=== PATIENT | female | born 1960 | race Caucasian/White ===

== ENCOUNTER → 2017-11-21 13:05 | Outpatient (POV) | payer BC, SELFPAY | PROVIDERS: Family Provider Emergency Medicine; Visit Provider Internal Medicine | DX: Z00.00 Encounter for general adult medical examination without abnormal findings (principal) ==

== ENCOUNTER → 2017-11-22 12:45 | Outpatient (CLI) | payer BC, SELFPAY ==
[2017-11-22 13:13] LABS: Basophils # 0.1 K/mm3 (0-0.2); Basophils % 0.7 % (0.1-2.0); Eosinophils # 0.3 K/mm3 (0.0-0.4); Eosinophils % 3.4 % (0.1-12.0); Hematocrit 39.7 % (37.0-47.0); Hemoglobin 13.1 g/dL (12.2-16.2); Lymphocytes # 3.8 K/mm3 (0.7-4.5); Lymphocytes % 38.5 K/mm3 (10-50); Mean Corpuscular HGB Conc 33.1 g/dL (31.8-35.4); Mean Corpuscular Hemoglobin 29.2 pg (27.0-31.2); Mean Corpuscular Volume 88.2 fl (81-99); Mean Platelet Volume 7.1 fl (7.4-10.4); Monocytes # 0.4 K/mm3 (0.1-1.0); Monocytes % 4.3 % (1.7-9.3); Neutrophils # 5.2 K/mm3 (1.8-7.8); Neutrophils % 53.1 % (37.0-80.0); Platelet Count 304 K/mm3 (142-424); White Blood Count 9.8 K/mm3 (4.8-10.8)
[2017-11-23 07:16] LABS: Immunoglobulin A, Qn 168 mg/dL (87-352); Immunoglobulin G, Qn 850 mg/dL (700-1600)
[2017-11-24 17:15] LABS: Immunoglobulin E, Total 15 IU/mL (0-100); Immunoglobulin M, Qn 100 mg/dL (26-217); Tissue Transglutaminase IgA Ab <2 U/mL (0-3); Tissue Transglutaminase IgG Ab 6 U/mL (0-5)
== END ==
PROVIDERS: PCP Nurse Practitioner Family; Visit Provider Nurse Practitioner Family
DX: R53.83 Other fatigue (principal)
CPT/HCPCS: 36415; 82784; 82785; 85025

== ENCOUNTER 2017-12-26 10:10 | Emergency (ER) | payer BC, SELFPAY ==
[2017-12-26 10:41] VITALS: BP 153/91; PULSE 82; RESP 20; TEMP 36.8; O2SAT 99; BMI 32.9
--- NOTE | 2017-12-26 11:38 | HMH.EDUTC ---
[facility] [place] Clinical Impression: Eustachian tube dysfunction Qualifiers: Laterality: left Qualified Code(s): H69.82 - Other specified disorders of Eustachian tube, left ear Disposition: Home, Self-Care Condition on Discharge: Good Instructions: DI for Eustachian Tube Dysfunction-Adult Additional Instructions: Sleep elevated Continue flonase 2 sprays each nostil daily Continue antihistamine Start steroid since still not improving. We discussed these and you report you have taken them before. Be aware they can elevate your blood pressure and blood sugar as we discussed as well as the other possible side effects. if you notice any of this, stop the medication and see treatment. Prescriptions: predniSONE [Deltasone 10mg tablet] 10 mg PO BID #10 tab Referrals: Mehul Amezcua APRN [Primary Care Provider] - (Immediately for new or worsening symptoms but also if no noticeable improvement over the next 5-7 days. if still not improved, might want to refer you to ENT.) Time of Disposition: 12:35 Medical Decision Making Vital Signs: 12/26/17 10:41 12/26/17 12:44 Temperature 98.2 F 98.7 F Temperature Source Temporal Artery Scan Pulse Rate 97 H Pulse Rate [Right Radial] 82 Respiratory Rate 20 18 Blood Pressure 138/67 Blood Pressure [Right Arm] 153/91 Blood Pressure Mean [Right Arm] 111 02 Sat by Pulse Oximetry 99 Oxygen Delivery Method Room Air - Wai Inquiry Pt receiving controlled substance: No [facility] [place] - General Stated complaint: Head congestion/Ear Ache/Headache Time Seen by Provider: 12/26/17 11:38 Mode of Arrival: Family Vehicle Source of Information: Patient Limitations: No Limitations Description of Symptoms (Recalled from Triage Doc. by RN): pt c/o left ear pain and congestion for 1 month. HEENT Symptoms (Recalled from RN notes): Yes (left ear pain and congestion) Resp Symptoms (Recalled from RN notes): No Skin Symptoms (Recalled from RN notes): No MS Symptoms (Recalled from RN notes): No Functional Status (Recalled from RN notes): na - History of Present Illness Provider Complaint: c/o intermittent left ear pain x 1 month. Saw PCP, Dr. Sanders's office, 2-3 weeks ago. Reports they told her just fluid back in there and prescribed zpack and flonase. No improvement. Taking claritin already daily. Hasn't tried anything else for symptoms. - Related Data Home Medications Medication Instructions Recorded Confirmed aspirin 81 mg tablet,delayed 81 mg PO QDAY 12/04/17 release coenzyme Q10 100 mg capsule 100 mg PO QDAY 12/04/17 docusate sodium 100 mg capsule 100 mg PO BID 12/04/17 ergocalciferol (vitamin D2) 50,000 50,000 unit PO QWEEK 12/04/17 unit capsule gabapentin 600 mg tablet 600 mg PO TID 12/04/17 losartan 100 1 tab PO QDAY 12/04/17 mg-hydrochlorothiazide 25 mg tablet omeprazole 20 mg capsule,delayed 20 mg PO BID 12/04/17 release simvastatin 40 mg tablet 40 mg PO QAM 12/04/17 tizanidine 4 mg capsule 4 mg PO QHS cap 12/04/17 zolpidem 10 mg tablet 10 mg PO HS PRN 12/04/17 Previous Rx's Medication Instructions Recorded allopurinol 100 mg tablet 100 mg PO QDAY #30 tab 12/05/17 bupropion HCl XL 150 mg 24 hr 150 mg PO QAM #30 tab 12/05/17 tablet, extended release diazepam 2 mg tablet See Label Instructions PO BID #60 12/05/17 tab diazepam 2 mg tablet See Label Instructions PO TID PRN 12/05/17 #90 tab fluticasone 50 mcg/actuation nasal 1 spray INTRANASAL QDAY #9.9 g 12/05/17 spray,suspension predniSONE [Deltasone 10mg tablet] 10 mg PO BID #10 tab 12/26/17 Allergies Allergy/AdvReac Type Severity Reaction Status Date / Time promethazine [From PHENERGAN] Allergy Intermediate Verified 12/05/17 14:18 - Worker's Comp Is this a Worker's Comp case?: No [facility] History I have reviewed the patient's past medical history: Yes Medical History: Reports:: Anxiety, Gastroesophageal Reflux Disease(GERD), Hyperlipidemia, Hypertension Denies:: Diabete
[2017-12-26 12:44] VITALS: BP 138/67; PULSE 97; RESP 18; TEMP 37.1; O2SAT 100
== END 2017-12-26 12:45 | disposition home or self-care (01) ==
PROVIDERS: Emergency Provider Nurse Practitioner Family; Family Provider Emergency Medicine; PCP Nurse Practitioner Family
DX: H69.82 Other specified disorders of Eustachian tube, left ear (principal); K21.9 Gastro-esophageal reflux disease without esophagitis; E78.5 Hyperlipidemia, unspecified; I10 Essential (primary) hypertension; F41.9 Anxiety disorder, unspecified; M79.7 Fibromyalgia; Z88.8 Allergy status to other drugs, medicaments and biological substances; Z79.82 Long term (current) use of aspirin; Z79.899 Other long term (current) drug therapy
CPT/HCPCS: 99202

== ENCOUNTER → 2018-01-30 09:49 | Outpatient (POV) | payer BC, SELFPAY ==
[2018-01-30 18:10] LABS: Basophils % 0.6 % (0.1-2.0); Eosinophils # 0.3 K/mm3 (0.0-0.4); Eosinophils % 3.2 % (0.1-12.0); Hematocrit 39.5 % (37.0-47.0); Hemoglobin 12.6 g/dL (12.2-16.2); Lymphocytes % 38.5 K/mm3 (10-50); Mean Corpuscular HGB Conc 31.9 g/dL (31.8-35.4); Mean Corpuscular Hemoglobin 29.7 pg (27.0-31.2); Mean Corpuscular Volume 93.1 fl (81-99); Mean Platelet Volume 8.5 fl (7.4-10.4); Monocytes # 0.4 K/mm3 (0.1-1.0); Monocytes % 5.2 % (1.7-9.3); Neutrophils # 4.1 K/mm3 (1.8-7.8); Neutrophils % 52.5 % (37.0-80.0); Platelet Count 298 K/mm3 (142-424); Red Blood Count 4.25 M/mm3 (4.20-5.40); Red Cell Distribution Width 13.1 % (11.5-17.5); White Blood Count 7.8 K/mm3 (4.8-10.8)
[2018-01-30 19:23] LABS: Alanine Aminotransferase 44 U/L (12-78); Albumin/Globulin Ratio 1.3 (1.1-1.8); Alkaline Phosphatase 94 U/L (46-116); Anion Gap 3.7 mEq/L (5-15); Aspartate Amino Transferase 17 U/L (15-37); Bilirubin,Total 0.3 mg/dL (0.2-1.0); Blood Urea Nitrogen 14 mg/dL (7-18); Calcium 9.3 mg/dL (8.5-10.1); Carbon Dioxide 29 mmol/L (21.0-32.0); Chloride 106 mmol/L (98-107); Estimated Glomerular Filt Rate 104 ml/min (>60); Free T4 (Free Thyroxine) 0.79 ng/dl (0.76-1.46); GFR (African American) 126 ML/MIN (>60); Globulin 3.2 gm/dl (1.3-3.2); Glucose 83 mg/dL (74-106); Potassium 3.7 mmoL/L (3.5-5.1); Sodium 135 mmol/L (136-145); Total Protein,Serum 7.2 gm/dL (6.4-8.2)
== END ==
PROVIDERS: Family Provider Emergency Medicine; PCP Nurse Practitioner Family; Visit Provider Otolaryngology
DX: H92.09 Otalgia, unspecified ear (principal); R53.83 Other fatigue; R09.89 Other specified symptoms and signs involving the circulatory and respiratory systems; R51 Headache
CPT/HCPCS: 80053; 84439; 84443; 85025

== ENCOUNTER → 2018-03-13 11:37 | Outpatient (POV) | payer BC, SELFPAY | PROVIDERS: Family Provider Emergency Medicine; PCP Nurse Practitioner Family; Visit Provider Otolaryngology | DX: Z00.00 Encounter for general adult medical examination without abnormal findings (principal) ==

== ENCOUNTER → 2018-03-13 11:37 | Outpatient (POV) | payer BC, SELFPAY | PROVIDERS: Family Provider Emergency Medicine; PCP Nurse Practitioner Family; Visit Provider Internal Medicine | DX: Z00.00 Encounter for general adult medical examination without abnormal findings (principal) ==

== ENCOUNTER → 2018-04-17 12:59 | Outpatient (CLI) | payer BC, SELFPAY ==
--- NOTE | 2018-04-17 13:04 | MR_ITS ---
MR head/brain wo/w con HISTORY: Left hip pain, left side headache ITS.REASON: NEUROPATHIC PAIN, LEFT EAR PAIN ORDERING PHYSICIAN: Rachael Mcgarry MD PATIENT AGE: 57 years Comparison: None TECHNIQUE: Standard multiplanar multiecho sequences are performed without and with gadolinium enhancement. FINDINGS: No midline shift, mass effect, intracranial hemorrhage, or hydrocephalus is evident. No evidence of acute infarction. No enhancing lesions. The cerebellopontine angles, cerebellum, and brainstem are unremarkable. There are a few small white matter hyperintensities noted. These do not enhance and do not show restricted diffusion and may represent small ischemic gliotic foci. They may also occur with migraine headache. Demyelinating process is felt to be less likely based on imaging characteristics. The hippocampal gyri are unremarkable and the temporal horns are symmetric. There is a partially empty sella.. The optic chiasm and corpus callosum are unremarkable. No cerebellar ectopia. No mastoid effusion or sinus air-fluid level. IMPRESSION: 1. No acute intracranial findings. 2. Scant scattered T2 white matter hyperintensities nonspecific but may be seen with ischemic gliotic change from microvascular disease or migraine headache or less likely demyelinating process.
[2018-04-17 13:21] LABS: Blood Urea Nitrogen 14 mg/dL (7-18); Creatinine,Serum 0.88 mg/dL (0.55-1.02); Estimated Glomerular Filt Rate 67 ml/min (>60); GFR (African American) 81 ML/MIN (>60)
--- NOTE | 2018-04-17 14:12 | HMH.ITSHM ---
ALLOPURINOL 100MG ASPIRIN BUPROPION CIPROFLOXACIN COENZYME DIAZEPAM DOCUSATE SODIUM ERGOCALCIFEROL FLUTICASONE GABAPENTIN METRONIDAZOLE OMEPRAZOLE TIZANIDINE ZOLPIDEM
== END ==
PROVIDERS: Family Provider Emergency Medicine; PCP Nurse Practitioner Family; Visit Provider Otolaryngology
DX: M79.2 Neuralgia and neuritis, unspecified (principal); M26.609 Unspecified temporomandibular joint disorder, unspecified side; H92.02 Otalgia, left ear
CPT/HCPCS: 36415; 70553; 82565; 84520; A9576

== ENCOUNTER → 2018-04-19 14:45 | Outpatient (REF) | payer BC, SELFPAY ==
[2018-04-19 17:39] LABS: Potassium 4.6 mmoL/L (3.5-5.1)
== END ==
LOC: LAB 14:45
PROVIDERS: Visit Provider Nurse Practitioner Family
DX: E87.6 Hypokalemia (principal)
CPT/HCPCS: 84132

== ENCOUNTER → 2018-05-03 16:04 | Outpatient (REF) | payer BC, SELFPAY | LOC: LAB 16:04 | PROVIDERS: Visit Provider Nurse Practitioner Family | DX: M54.9 Dorsalgia, unspecified (principal) | CPT/HCPCS: 87086; 87088; 87186 ==

== ENCOUNTER 2018-05-11 10:32 | Outpatient (CLI) | payer BC, SELFPAY ==
--- NOTE | 2018-05-11 11:50 | HMH.PHACONS ---
- Pharmacy Consult Date: 05/11/18 Time: 11:51 Referring provider: GERALD PICKARD Reason for Consult:: VANCOMYCIN DOSING Allergies and ADEs:: Allergies Allergy/AdvReac Type Severity Reaction Status Date / Time promethazine [From PHENERGAN] Allergy Intermediate Verified 05/03/18 14:14 Home Medications:: Home Medications Medication Instructions Recorded Confirmed Type aspirin 81 mg tablet,delayed 81 mg PO QDAY 12/04/17 History release docusate sodium 100 mg capsule 100 mg PO BID 12/04/17 History losartan 100 1 tab PO QDAY 12/04/17 History mg-hydrochlorothiazide 25 mg tablet omeprazole 20 mg capsule,delayed 20 mg PO BID 12/04/17 History release simvastatin 40 mg tablet 40 mg PO QAM 12/04/17 History Height: 1.57 m Weight: 83 kg Laboratory Results:: N/A Medical History: Reports:: Anxiety, Gastroesophageal Reflux Disease(GERD), Hyperlipidemia, Hypertension Denies:: Diabetes Mellitus Type 1, Diabetes Mellitus Type 2 Assessment and Plan - Assessment and plan all Dx Assessment and Plan for all problems:: BASED ON PATIENT FACTORS, RECOMMEND VANCOMYCIN 1,750MG IV Q24H. WILL OBTAIN TROUGH LEVEL PRIOR TO DOSE ON 05/14/18. PHARMACY WILL CONTINUE TO MONITOR AND WILL ADJUST DOSE APPROPRIATE. -PIERRE RENTERIA, KINGD
[2018-05-11 12:00] VITALS: BP 128/78; PULSE 68; RESP 20; TEMP 36.9; O2SAT 96
[2018-05-11 12:30] VITALS: BP 118/70; PULSE 66; RESP 20; TEMP 36.4; O2SAT 96
[2018-05-11 13:00] VITALS: BP 125/70; PULSE 68; RESP 20; TEMP 36.7; O2SAT 96
[2018-05-11 13:46] VITALS: BMI 33.6
--- NOTE | 2018-05-11 13:47 | XR_ITS ---
XR chest portable PICC plac HISTORY: ITS.REASON: PICC line placement ORDERING PHYSICIAN: Carlos Alberto Sanders MD PATIENT AGE: 57 years FINDINGS: Left upper from a PICC line has been inserted. The tip is in good position within the superior vena cava. Unremarkable cardiovascular structures with clear lungs. IMPRESSION: Good placement of PICC line
[2018-05-11 14:00] VITALS: BP 126/70; PULSE 68; RESP 20; TEMP 37.1; O2SAT 96
[2018-05-11 15:00] VITALS: BP 126/70; PULSE 68; RESP 20; TEMP 36.9; O2SAT 96
== END 2018-05-11 15:10 | disposition home or self-care (01) ==
LOC: INF 10:34
PROVIDERS: PCP Emergency Medicine; Visit Provider Emergency Medicine
DX: N39.0 Urinary tract infection, site not specified (principal); M54.5 Low back pain
CPT/HCPCS: 36569; 71045; 96365; 96366; C1751; J3370

== ENCOUNTER 2018-05-12 13:57 | Outpatient (CLI) | payer BC, SELFPAY ==
[2018-05-12 14:35] VITALS: BP 153/77; PULSE 93; RESP 20; TEMP 36.4; O2SAT 97
[2018-05-12 15:05] VITALS: BP 144/81; PULSE 77; RESP 18; TEMP 36.6; O2SAT 96
[2018-05-12 15:35] VITALS: BP 139/66; PULSE 86; RESP 18; TEMP 36.5; O2SAT 97
[2018-05-12 16:39] VITALS: BP 129/81; PULSE 78; RESP 18; TEMP 36.6; O2SAT 99
== END 2018-05-12 16:40 | disposition home or self-care (01) ==
LOC: INF 13:58
PROVIDERS: Family Provider Emergency Medicine; PCP Emergency Medicine; Visit Provider Emergency Medicine
DX: N39.0 Urinary tract infection, site not specified (principal); M54.5 Low back pain
CPT/HCPCS: 96365; 96366; J3370

== ENCOUNTER → 2018-05-13 14:21 | Outpatient (CLI) | payer BC, SELFPAY ==
[2018-05-13 14:21] VITALS: BP 131/91; PULSE 85; RESP 18; TEMP 36.8; O2SAT 97
[2018-05-13 14:40] VITALS: BP 138/59; PULSE 83; RESP 18; TEMP 36.4; O2SAT 98
== END ==
PROVIDERS: Family Provider Emergency Medicine; PCP Emergency Medicine; Visit Provider Emergency Medicine
DX: N39.0 Urinary tract infection, site not specified (principal); M54.5 Low back pain
CPT/HCPCS: 96365; 96366; J3370

== ENCOUNTER 2018-05-14 14:19 | Outpatient (CLI) | payer BC, SELFPAY ==
[2018-05-14 14:21] VITALS: BMI 33.6
[2018-05-14 14:46] LABS: Anion Gap 12.1 mEq/L (5-15); Blood Urea Nitrogen 13 mg/dL (7-18); Carbon Dioxide 28 mmol/L (21.0-32.0); Chloride 104 mmol/L (98-107); Creatinine Clearance Estimated 129 mL/min (0-300); Creatinine,Serum 0.65 mg/dL (0.55-1.02); Estimated Glomerular Filt Rate 95 ml/min (>60); GFR (African American) 115 ML/MIN (>60); Glucose 104 mg/dL (74-106); Potassium 3.1 mmoL/L (3.5-5.1); Sodium 141 mmol/L (136-145)
[2018-05-14 14:47] LABS: Vancomycin,Trough 4.6 mcg/ml (10.0-20.0)
--- NOTE | 2018-05-14 15:12 | HMH.PHACONS ---
- Pharmacy Consult Date: 05/14/18 Time: 15:13 Referring provider: GERALD PICKARD Reason for Consult:: VANCOMYCIN DOSING Allergies and ADEs:: Allergies Allergy/AdvReac Type Severity Reaction Status Date / Time promethazine [From PHENERGAN] Allergy Intermediate Verified 05/03/18 14:14 Home Medications:: Home Medications Medication Instructions Recorded Confirmed Type aspirin 81 mg tablet,delayed 81 mg PO QDAY 12/04/17 05/14/18 History release docusate sodium 100 mg capsule 100 mg PO BID 12/04/17 05/14/18 History omeprazole 20 mg capsule,delayed 20 mg PO BID 12/04/17 05/14/18 History release simvastatin 40 mg tablet 40 mg PO QAM 12/04/17 05/14/18 History Allopurinol [Allopurinol 100mg 100 mg PO QDAY 05/14/18 05/14/18 History tablet] Ciprofloxacin HCl [Cipro 500mg Tab] 500 mg PO BID 05/14/18 05/14/18 History Losartan/Hydrochlorothiazide 1 tab PO QDAY 05/14/18 05/14/18 History [Hyzaar 100-25 Tablet] Phenazopyridine HCl [Pyridium 200 pow PO TID 05/14/18 05/14/18 History 200mg Tablet] Potassium Chloride [K-Tab ER 20 20 meq PO DAILY 05/14/18 05/14/18 History mEq] buPROPion HCl [Bupropion Xl] 150 mg PO QAM 05/14/18 05/14/18 History diazePAM [Valium] See Label Instructions PO BID 05/14/18 History metroNIDAZOLE [Flagyl] 500 mg PO TID 05/14/18 05/14/18 History Height: 1.57 m Weight: 83.461 kg Laboratory Results:: Laboratory Results - last 24 hr 05/14/18 14:20: Sodium 141, Potassium 3.1 L, Chloride 104, Carbon Dioxide 28, Anion Gap 12.1, BUN 13, Creatinine 0.65, Estimated Creat Clear 129, Estimated GFR 95, Est GFR ( Amer) 115, Glucose 104, Calcium 9.0, Vancomycin Trough 4.6 L Medical History: Reports:: Anxiety, Gastroesophageal Reflux Disease(GERD), Hyperlipidemia, Hypertension Denies:: Diabetes Mellitus Type 1, Diabetes Mellitus Type 2 Assessment and Plan - Assessment and plan all Dx Assessment and Plan for all problems:: BASED ON PATIENT FACTORS AND VANCOMYCIN TROUGH LEVEL OF 4.6, RECOMMEND CHANGING CURRENT DOSE TO 1,500MG IV Q12H. WILL OBTAIN TROUGH LEVEL PRIOR TO AM DOSE ON 05/16/18. PHARMACY WILL CONTINUE TO MONITOR AND WILL ADJUST DOSE APPROPRIATE AT THAT TIME. -PIERRE RENTERIA, KINGD
[2018-05-14 15:20] VITALS: BP 120/62; PULSE 87; RESP 18; O2SAT 96
[2018-05-14 15:50] VITALS: BP 119/67; PULSE 85; RESP 18; O2SAT 97
[2018-05-14 16:20] VITALS: BP 124/61; PULSE 87; RESP 18; O2SAT 96
[2018-05-14 16:50] VITALS: BP 118/60; PULSE 84; RESP 18; O2SAT 97
== END 2018-05-14 17:25 | disposition home or self-care (01) ==
LOC: INF 14:19
PROVIDERS: Family Provider Emergency Medicine; PCP Emergency Medicine; Visit Provider Emergency Medicine
DX: N39.0 Urinary tract infection, site not specified (principal); M54.5 Low back pain
CPT/HCPCS: 80048; 80202; 96365; 96366; J3370

== ENCOUNTER 2018-05-15 14:34 | Outpatient (CLI) | payer BC, SELFPAY ==
[2018-05-15 14:46] VITALS: BP 153/83; PULSE 76; RESP 18; TEMP 36.6; O2SAT 97
[2018-05-15 15:00] VITALS: BP 124/76; PULSE 76; RESP 18; TEMP 36.6; O2SAT 97
[2018-05-15 15:20] VITALS: BP 129/72; PULSE 71; RESP 16; TEMP 36.6; O2SAT 98
[2018-05-15 15:50] VITALS: BP 131/78; PULSE 75; RESP 18; TEMP 36.6; O2SAT 97
[2018-05-15 16:00] VITALS: BP 128/79; PULSE 79; RESP 18
[2018-05-15 16:39] VITALS: BMI 33.6
[2018-05-15 17:05] VITALS: BP 126/74; PULSE 71; RESP 18; TEMP 36.6; O2SAT 98
--- NOTE | 2018-05-15 17:31 | PC.NURSE ---
05/15/18 1700 Gentamycin peak drawn per order of Matt, Pharm D
[2018-05-15 17:37] LABS: Gentamicin,Peak 13.4 ug/mL (4.0-8.0)
== END 2018-05-15 17:05 | disposition home or self-care (01) ==
LOC: INF 14:34
PROVIDERS: Family Provider Emergency Medicine; PCP Emergency Medicine; Visit Provider Emergency Medicine
DX: N39.0 Urinary tract infection, site not specified (principal); M54.5 Low back pain
CPT/HCPCS: 80170; 96365

== ENCOUNTER → 2018-05-16 14:06 | Outpatient (CLI) | payer BC, SELFPAY ==
[2018-05-16 14:06] VITALS: BP 127/71; PULSE 72; RESP 18; TEMP 36.9; O2SAT 99
[2018-05-16 14:41] LABS: Anion Gap 12.5 mEq/L (5-15); Blood Urea Nitrogen 11 mg/dL (7-18); Calcium 9.5 mg/dL (8.5-10.1); Carbon Dioxide 28 mmol/L (21.0-32.0); Chloride 105 mmol/L (98-107); Creatinine,Serum 0.61 mg/dL (0.55-1.02); Estimated Glomerular Filt Rate 102 ml/min (>60); GFR (African American) 123 ML/MIN (>60); Glucose 103 mg/dL (74-106); Potassium 3.5 mmoL/L (3.5-5.1); Sodium 142 mmol/L (136-145)
[2018-05-16 14:46] VITALS: BP 126/88; BP 127/71; PULSE 72; PULSE 73; RESP 18; TEMP 36.8; TEMP 36.9; O2SAT 98; O2SAT 99; BMI 33.6
== END ==
PROVIDERS: Family Provider Emergency Medicine; PCP Emergency Medicine; Visit Provider Emergency Medicine
DX: N39.0 Urinary tract infection, site not specified (principal); M54.5 Low back pain
CPT/HCPCS: 80048; 80170; 96365

== ENCOUNTER 2018-05-17 14:30 | Outpatient (CLI) | payer BC, SELFPAY ==
--- NOTE | 2018-05-17 08:19 | HMH.PHACONS ---
- Pharmacy Consult Date: 05/17/18 Time: 08:19 Referring provider: GERALD PICKARD Reason for Consult:: GENTAMICIN LEVELS Allergies and ADEs:: Allergies Allergy/AdvReac Type Severity Reaction Status Date / Time promethazine [From PHENERGAN] Allergy Intermediate Verified 05/03/18 14:14 Home Medications:: Home Medications Medication Instructions Recorded Confirmed Type aspirin 81 mg tablet,delayed 81 mg PO QDAY 12/04/17 05/15/18 History release docusate sodium 100 mg capsule 100 mg PO BID 12/04/17 05/15/18 History omeprazole 20 mg capsule,delayed 20 mg PO BID 12/04/17 05/15/18 History release simvastatin 40 mg tablet 40 mg PO QAM 12/04/17 05/15/18 History Allopurinol [Allopurinol 100mg 100 mg PO QDAY 05/14/18 05/15/18 History tablet] Phenazopyridine HCl [Pyridium 200 pow PO TID 05/14/18 05/15/18 History 200mg Tablet] Potassium Chloride [K-Tab ER 20 20 meq PO DAILY 05/14/18 05/15/18 History mEq] buPROPion HCl [Bupropion Xl] 150 mg PO QAM 05/14/18 05/15/18 History diazePAM [Valium] See Label Instructions PO BID 05/14/18 05/15/18 History levoFLOXacin [Levaquin 500mg 500 mg PO Q24H 05/15/18 05/15/18 History tab] Height: 0 cm Weight: 0 g Laboratory Results:: SRCR= 0.61 Medical History: Reports:: Anxiety, Gastroesophageal Reflux Disease(GERD), Hyperlipidemia, Hypertension Denies:: Diabetes Mellitus Type 1, Diabetes Mellitus Type 2 Assessment and Plan - Assessment and plan all Dx Assessment and Plan for all problems:: GENTAMICIN TROUGH LEVEL: 0.00 GENTAMICIN PEAK LEVEL: 13.4 BASED ON GENTAMICIN LEVELS AND PATIENT FACTORS, RECOMMEND CONTINUING GENTAMICIN 360 MG IV Q24H. PHARMACY WILL CONTINUE TO MONITOR DAILY AND ADJUST APPROPRIATE.
[2018-05-17 15:00] VITALS: BP 139/88; PULSE 76; RESP 18; TEMP 36.6
[2018-05-17 15:30] VITALS: BP 132/88; PULSE 74; RESP 18; O2SAT 94
[2018-05-17 16:00] VITALS: BP 145/85; PULSE 78; RESP 18
== END 2018-05-17 16:25 | disposition home or self-care (01) ==
LOC: INF 14:32
PROVIDERS: Family Provider Emergency Medicine; PCP Emergency Medicine; Visit Provider Emergency Medicine
DX: N39.0 Urinary tract infection, site not specified (principal); M54.5 Low back pain
CPT/HCPCS: 96366

== ENCOUNTER 2018-05-18 14:08 | Outpatient (CLI) | payer BC, SELFPAY ==
[2018-05-18 14:15] VITALS: BP 109/66; PULSE 75; RESP 18; TEMP 36.5; O2SAT 96
[2018-05-18 14:45] VITALS: BP 109/61; PULSE 73; RESP 18
[2018-05-18 15:15] VITALS: BP 116/57; PULSE 73; RESP 18
[2018-05-18 15:30] VITALS: BP 109/66; PULSE 75; RESP 18
== END 2018-05-18 15:30 | disposition home or self-care (01) ==
LOC: INF 14:08
PROVIDERS: Family Provider Emergency Medicine; PCP Emergency Medicine; Visit Provider Emergency Medicine
DX: N39.0 Urinary tract infection, site not specified (principal); M54.5 Low back pain
CPT/HCPCS: 96365

== ENCOUNTER → 2018-05-19 13:46 | Outpatient (CLI) | payer BC, SELFPAY ==
[2018-05-19 14:01] VITALS: BMI 33.6
[2018-05-19 14:07] LABS: Appearance,Urine SL CLOUDY (Clear); Bilirubin,Urine Negative (Negative); Blood, Urine 1+ (Negative); Color,Urine YELLOW (Yellow); Glucose,Urine (UA) Negative (Negative); Ketones,Urine Negative (Negative); Leukocyte Esterase,Urine Negative (Negative); Microscopic, Urine URINE MICROSCOPIC (MICROSCOPIC); Nitrate,Urine Negative (Negative); Protein,Urine Negative (Negative); Specific Gravity, Urine 1.015 (1.005-1.030); Urobilinogen,Urine 0.2 EU/dl (0.2)
[2018-05-19 14:14] LABS: Bacteria,Urine 1+ /lpf; WBC,Urine Occasional #/hpf (0-3)
[2018-05-19 14:15] VITALS: BP 134/83; PULSE 72; RESP 18; TEMP 36.2; O2SAT 96
[2018-05-19 15:20] VITALS: BP 143/80; PULSE 76; RESP 18; TEMP 36.6; O2SAT 100
[2018-05-19 16:11] VITALS: BP 138/78; PULSE 75; RESP 18; TEMP 36.7; O2SAT 98
== END ==
PROVIDERS: Visit Provider Emergency Medicine
DX: N39.0 Urinary tract infection, site not specified (principal); M54.5 Low back pain
CPT/HCPCS: 81001; 87086; 96365

== ENCOUNTER → 2018-06-22 11:10 | Outpatient (CLI) | payer BC, SELFPAY ==
--- NOTE | 2018-06-22 11:11 | CT_ITS ---
CT mastoid W/O INDICATION: ITS.REASON: headache, dizziness, eustachian tube dysfunction ORDERING PHYSICIAN: Agnes Lindquist MD PATIENT AGE: 57 years COMPARISON: None TECHNIQUE: Axial images are obtained without contrast. Sagittal and coronal reformatted images are reviewed as well. All CT scans at the facility use one or more dose reduction, viz: automated exposure control, ma/kV adjustment per patient size (including targeted exams where dose is matched to indication, i.e. head), or iterative reconstruction technique. FINDINGS: Thin section axial images are obtained with sagittal and coronal reformatted images without contrast. The mastoid sinuses are well aerated. No mastoid effusion or mass. No evidence of cholesteatoma. The middle ear canals are also well aerated. The acoustic foramen are symmetric. Unremarkable petrous bone. No temporal bone mass evident. No fracture or destructive process. No sinus air-fluid level. The orbits have an unremarkable appearance. There is minimal degenerative change of left TMJ. IMPRESSION: 1. Unremarkable CT scan of the mastoids as detailed above. 2. 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
== END ==
PROVIDERS: Family Provider Emergency Medicine; PCP Emergency Medicine; Visit Provider Specialist
DX: R51 Headache (principal); R42 Dizziness and giddiness; H69.90 Unspecified Eustachian tube disorder, unspecified ear
CPT/HCPCS: 70486

== ENCOUNTER → 2018-06-25 11:33 | Outpatient (POV) | payer BC, SELFPAY | PROVIDERS: Family Provider Emergency Medicine; PCP Emergency Medicine; Visit Provider Nurse Practitioner Acute Care | DX: Z00.00 Encounter for general adult medical examination without abnormal findings (principal) ==

== ENCOUNTER → 2018-12-04 13:38 | Outpatient (CLI) | payer BC, SELFPAY ==
[2018-12-04 14:50] LABS: Erythrocyte Sedimentation Rate 18 mm/hr (0-30)
== END ==
PROVIDERS: Visit Provider Emergency Medicine
DX: R53.83 Other fatigue (principal)
CPT/HCPCS: 85651

== ENCOUNTER → 2019-03-01 17:30 | Outpatient (CLI) | payer BC, SELFPAY ==
[2019-03-01 21:07] LABS: Amphetamine/Metha Screen,Urine Negative ng/mL (<1000); Barbiturates Screen,Urine Negative ng/mL (<200); Benzodiazepines Screen,Urine Positive ng/mL (<200); Cannabinoid Screen,Urine Negative ng/mL (<50); Cocaine Screen,Urine Negative ng/mL (<300); Methadone Screen,Urine Negative ng/mL (<300); Opiate Screen,Urine Negative ng/mL (<300); Phencyclidine Screen,Urine Negative ng/mL (<25)
== END ==
PROVIDERS: Visit Provider Emergency Medicine
DX: R30.0 Dysuria (principal); Z79.899 Other long term (current) drug therapy
CPT/HCPCS: 80305; 87086

== ENCOUNTER → 2019-05-13 10:10 | Outpatient (POV) | payer BC, SELFPAY | PROVIDERS: PCP Emergency Medicine; Visit Provider Nurse Practitioner Family | DX: Z00.00 Encounter for general adult medical examination without abnormal findings (principal) ==

== ENCOUNTER → 2019-06-26 14:23 | Outpatient (CLI) | payer BC, SELFPAY ==
[2019-06-26 18:05] LABS: Free T4 (Free Thyroxine) 0.93 ng/dl (0.76-1.46); Thyroid Stimulating Hormone 3.58 uIU/ml (0.358-3.740)
== END ==
PROVIDERS: Visit Provider Emergency Medicine
DX: R63.5 Abnormal weight gain (principal)
CPT/HCPCS: 36415; 84439; 84443

== ENCOUNTER 2020-05-23 13:05 | Emergency (ER) | payer BC, SELFPAY ==
[2020-05-23 13:23] VITALS: BP 140/94; PULSE 108; RESP 19; TEMP 36.9; O2SAT 98; BMI 34.7
--- NOTE | 2020-05-23 13:33 | HMH.EDUTC ---
[facility] – [place] Disposition Clinical Impression: URI (upper respiratory infection) Qualifiers: URI type: unspecified URI Qualified Code(s): J06.9 - Acute upper respiratory infection, unspecified Disposition: Home, Self-Care Condition on Discharge: Good Instructions: Sore Throat, Sinusitis, DI for Sinusitis, DI for Ear Pain-Adult Additional Instructions: *Monitor Temp, Over the counter Motrin or Tylenol as directed/as needed Tylenol every 4 hours and Motrin every 6 hours (as long as your family doctor has told you that you can take it) for fever or pain. and straight to ER if unable to lower temp less than 101.0 after medication given *Warm salt water gargles may help to soothe the throat *Throat Lozenges *Warm fluids like tea with honey may help to soothe the throat *Sleep elevated *Humidifier/Vaporizer *Flonase 2 sprays in each nostril daily but be aware that it may take 2-3 days before you notice improvement Follow up IMMEDIATELY for new or worsening symptoms or no Noticeable improvement over the next 48-72 hours. 911 for difficulty breathing or swallowing Referrals: Leonard Heredia MD [Primary Care Provider] - As needed Time of Disposition: 13:40 Medical Decision Making - Wai Inquiry Pt receiving controlled substance: No Wai was queried for this patient: No Vital Signs: 05/23/20 13:23 Temperature 98.4 F Temperature Source Oral Pulse Rate [Right Brachial] 108 H Respiratory Rate 19 Blood Pressure [Right Arm] 140/94 H Blood Pressure Mean [Right Arm] 109 Blood Pressure Source [Right Arm] Automatic Cuff Blood Pressure Position [Right Arm] Sitting 02 Sat by Pulse Oximetry 98 Oxygen Delivery Method Room Air Orders (Tests/Meds): ED MEDICATIONS Discontinued Medications Generic Name Dose Route Start Last Admin Trade Name Freq PRN Reason Stop Dose Admin Ceftriaxone Sodium 1 gm 05/23/20 13:36 05/23/20 13:55 Rocephin 1gm Vial IM 05/23/20 13:37 1 gm ONCE ONE Administration Protocol Lidocaine HCl 0 ml 05/23/20 13:36 05/23/20 13:55 Lidocaine 1% 10ml Mdv IM 05/23/20 13:37 2.1 ml ONCE ONE Administration Methylprednisolone Sodium Succinate 125 mg 05/23/20 13:36 05/23/20 13:55 Solu-Medrol 125mg/2ml Vial IM 05/23/20 13:37 125 mg ONCE ONE Administration [facility] [place] HPI - General Stated complaint: SINUS EAR PAIN Time Seen by Provider: 05/23/20 13:33 Mode of Arrival: Ambulatory Source of Information: Patient Limitations: No Limitations Description of Symptoms (Recalled from Triage Doc. by RN): PATIENT C/O LEFT EAR ACHE AND SINUS CONGESTION X 1 WEEK HEENT Symptoms (Recalled from RN notes): Yes Resp Symptoms (Recalled from RN notes): No Skin Symptoms (Recalled from RN notes): No MS Symptoms (Recalled from RN notes): No Functional Status (Recalled from RN notes): wnl - History of Present Illness Provider Complaint: Patient states that she has been having pressure like feeling in her ears and drainage and pressure that is starting in her sinuses States that if she gets in to get checked and injections it helps to keep it from getting worse States that it started out like allergies and she feels like it is starting to turn into infection and having drainage in the back of her throat Denies known exposure to COVID - Related Data Home Medications Medication Instructions Recorded Confirmed buspirone 10 mg tablet 5 mg PO #60 tab 05/06/19 05/06/19 Previous Rx's Medication Instructions Recorded zolpidem 10 mg tablet 10 mg PO QHS PRN #30 tab 06/14/19 hydroxyzine HCl 25 mg tablet 25 mg PO QHS 90 Days #90 tab 06/26/19 docusate sodium 100 mg capsule 100 mg PO BID #180 cap 07/08/19 potassium chloride 20 mEq See Rx Instructions .ROUTE 07/08/19 tablet,extended release(part/cryst) .COMPLEX #30 tablet losartan 100 See Rx Instructions .ROUTE 08/14/19 mg-hydrochlorothiazide 25 mg tablet .COMPLEX #90 tablet aspirin 81 mg tablet,delayed 81 mg PO QDAY #90 tab 08/26/19 release Keto
[2020-05-23 14:01] VITALS: BP 140/94; PULSE 108; RESP 19; TEMP 36.9; O2SAT 98
== END 2020-05-23 14:04 | disposition home or self-care (01) ==
PROVIDERS: Emergency Provider Nurse Practitioner; PCP Family Medicine
DX: J06.9 Acute upper respiratory infection, unspecified (principal); F41.8 Other specified anxiety disorders; K21.9 Gastro-esophageal reflux disease without esophagitis; I10 Essential (primary) hypertension; E78.5 Hyperlipidemia, unspecified; Z90.49 Acquired absence of other specified parts of digestive tract; Z79.899 Other long term (current) drug therapy
CPT/HCPCS: 96372; 99201

== ENCOUNTER 2020-07-22 20:47 | Emergency (ER) | payer BC, SELFPAY ==
[2020-07-22 20:52] VITALS: BP 138/73; PULSE 75; RESP 20; TEMP 36.7; O2SAT 98; BMI 36.0
--- NOTE | 2020-07-22 20:56 | HMH.EDUTC ---
[facility] [place] Impression: Otitis media Qualifiers: Otitis media type: unspecified Laterality: left Qualified Code(s): H66.92 - Otitis media, unspecified, left ear Disposition: Home, Self-Care Condition on Discharge: Good Instructions: Middle Ear Infection, DI for Sinusitis, Sinusitis Additional Instructions: *Monitor Temp, Over the counter Motrin or Tylenol as directed/as needed Tylenol every 4 hours and Motrin every 6 hours (as long as your family doctor has told you that you can take it) for fever or pain. and straight to ER if unable to lower temp less than 101.0 after medication given *Warm salt water gargles may help to soothe the throat *Throat Lozenges *Warm fluids like tea with honey may help to soothe the throat *Sleep elevated *Humidifier/Vaporizer *Flonase 2 sprays in each nostril daily but be aware that it may take 2-3 days before you notice improvement *Take medication as prescribed Return if needed Follow up IMMEDIATELY for new or worsening symptoms or no Noticeable improvement over the next 48-72 hours. 911 for difficulty breathing or swallowing Prescriptions: Amoxicillin/Potassium Clav [Augmentin 875-125 Tablet] 1 tab PO Q12H 7 Days #14 tab Transmission Status: Pending to [facility]/pharmacy #[id number] Referrals: Leonard Heredia MD [Primary Care Provider] - As needed Time of Disposition: 21:08 Medical Decision Making - Wai Inquiry Pt receiving controlled substance: No Wai was queried for this patient: No Vital Signs: 07/22/20 20:52 Temperature 98.0 F Temperature Source Oral Pulse Rate [Radial] 75 Respiratory Rate 20 Blood Pressure [Right Arm] 138/73 Blood Pressure Mean [Right Arm] 94 Blood Pressure Source [Right Arm] Automatic Cuff Blood Pressure Position [Right Arm] Sitting 02 Sat by Pulse Oximetry 98 Oxygen Delivery Method Room Air [facility] [place] - General Stated complaint: sore throat,COLLADO Time Seen by Provider: 07/22/20 20:56 Mode of Arrival: Ambulatory Source of Information: Patient Limitations: No Limitations Description of Symptoms (Recalled from Triage Doc. by RN): left ear pain and sinus pain x 2 weeks, but worse the past couple of days. HEENT Symptoms (Recalled from RN notes): Yes Resp Symptoms (Recalled from RN notes): No Skin Symptoms (Recalled from RN notes): No MS Symptoms (Recalled from RN notes): No Functional Status (Recalled from RN notes): wnl - History of Present Illness Provider Complaint: Patient states that she has been having sinus pain and pressure along with pain in her left ear and sore throat States that she feels like she has a sinus infection States that usually when she gets like this she has to get a shot States that tonight her ear was hurting worse and having more pressure in his sinuses so she came in - Related Data Home Medications Medication Instructions Recorded Confirmed buspirone 10 mg tablet 5 mg PO #60 tab 05/06/19 05/06/19 Previous Rx's Medication Instructions Recorded zolpidem 10 mg tablet 10 mg PO QHS PRN #30 tab 06/14/19 hydroxyzine HCl 25 mg tablet 25 mg PO QHS 90 Days #90 tab 06/26/19 docusate sodium 100 mg capsule 100 mg PO BID #180 cap 07/08/19 potassium chloride 20 mEq See Rx Instructions .ROUTE 07/08/19 tablet,extended release(part/cryst) .COMPLEX #30 tablet losartan 100 See Rx Instructions .ROUTE 08/14/19 mg-hydrochlorothiazide 25 mg tablet .COMPLEX #90 tablet aspirin 81 mg tablet,delayed 81 mg PO QDAY #90 tab 08/26/19 release Ketorolac Tromethamine [Toradol 10 mg PO Q6H PRN 5 Days #20 tab 11/01/19 10mg tablet] allopurinol 100 mg tablet See Rx Instructions .ROUTE 02/20/20 .COMPLEX #90 tab simvastatin 40 mg tablet See Rx Instructions .ROUTE 02/24/20 .COMPLEX #90 tab omeprazole 20 mg capsule,delayed 20 mg PO BID #180 cap 06/10/20 release valacyclovir 500 mg tablet See Rx Instructions .ROUTE 06/16/20 .COMPLEX #90 tab Amoxicillin/Potassium Clav 1 tab PO Q12H 7 Days #14 tab 07/22/20 [Augmentin
[2020-07-22 21:17] VITALS: BP 138/73; PULSE 75; RESP 20; TEMP 36.7; O2SAT 98
== END 2020-07-22 21:22 | disposition home or self-care (01) ==
PROVIDERS: Emergency Provider Nurse Practitioner; PCP Family Medicine
DX: H66.92 Otitis media, unspecified, left ear (principal); E78.5 Hyperlipidemia, unspecified; I10 Essential (primary) hypertension; F41.8 Other specified anxiety disorders; K21.9 Gastro-esophageal reflux disease without esophagitis; M79.7 Fibromyalgia; Z90.49 Acquired absence of other specified parts of digestive tract; Z90.79 Acquired absence of other genital organ(s); Z79.899 Other long term (current) drug therapy
CPT/HCPCS: 96372; 99201

== ENCOUNTER 2020-10-10 12:07 | Emergency (ER) | payer BC, SELFPAY ==
[2020-10-10 12:36] VITALS: BP 135/74; PULSE 61; RESP 18; TEMP 37; O2SAT 98; BMI 34.0
--- NOTE | 2020-10-10 12:51 | HMH.EDUTC ---
[facility] [place] Disposition Clinical Impression: URI (upper respiratory infection) Qualifiers: URI type: unspecified URI Qualified Code(s): J06.9 - Acute upper respiratory infection, unspecified Disposition: Home, Self-Care Condition on Discharge: Good Instructions: Sore Throat, DI for Sinusitis, DI for Muscle Spasm Additional Instructions: *Monitor Temp, Over the counter Motrin or Tylenol as directed/as needed Tylenol every 4 hours and Motrin every 6 hours (as long as your family doctor has told you that you can take it) for fever or pain. and straight to ER if unable to lower temp less than 101.0 after medication given *Warm salt water gargles may help to soothe the throat *Throat Lozenges *Warm fluids like tea with honey may help to soothe the throat *Sleep elevated *Humidifier/Vaporizer *Flonase 2 sprays in each nostril daily but be aware that it may take 2-3 days before you notice improvement Your blood sugar may be elevated for the next couple of days then should return to normal Follow up IMMEDIATELY for new or worsening symptoms or no Noticeable improvement over the next 48-72 hours. 911 for difficulty breathing or swallowing Referrals: Melissa Rao [Primary Care Provider] - As needed Time of Disposition: 12:58 Medical Decision Making - Wai Inquiry Pt receiving controlled substance: No Wai was queried for this patient: No Vital Signs: 10/10/20 12:36 Temperature 98.6 F Temperature Source Oral Pulse Rate [Radial] 61 Respiratory Rate 18 Blood Pressure [Right Arm] 135/74 Blood Pressure Mean [Right Arm] 94 Blood Pressure Source [Right Arm] Automatic Cuff Blood Pressure Position [Right Arm] Sitting 02 Sat by Pulse Oximetry 98 Oxygen Delivery Method Room Air Orders (Tests/Meds): ED MEDICATIONS Discontinued Medications Generic Name Dose Route Start Last Admin Trade Name Freq PRN Reason Stop Dose Admin Ceftriaxone Sodium 1 gm 10/10/20 12:53 10/10/20 12:58 Ceftriaxone 1gm Vial IM 10/10/20 12:54 1 gm ONCE ONE Administration Protocol Lidocaine HCl 0 ml 10/10/20 12:53 10/10/20 12:58 Lidocaine 1% 5ml Pf Vial IM 10/10/20 12:54 2.1 ml ONCE ONE Administration Methylprednisolone Sodium Succinate 125 mg 10/10/20 12:53 10/10/20 12:58 Methylprednisolone Sod Succ 125mg Vial IM 10/10/20 12:54 125 mg ONCE ONE Administration [facility] [place] HPI - General Stated complaint: earache, sinus Time Seen by Provider: 10/10/20 12:54 Description of Symptoms (Recalled from Triage Doc. by RN): left ear and sinus pain along with sinus pressure on and off for 1 month HEENT Symptoms (Recalled from RN notes): Yes Resp Symptoms (Recalled from RN notes): No Skin Symptoms (Recalled from RN notes): No MS Symptoms (Recalled from RN notes): No Functional Status (Recalled from RN notes): wnl - History of Present Illness Provider Complaint: Patient state that she has been having pressure like feeling in her ears and sinus pain and congestion on and off for about a month States that today she was still having the pressure like feeling and had some yellowish green mucous so she come in to see if she could get something to clear it up - Related Data Home Medications Medication Instructions Recorded Confirmed buspirone 10 mg tablet 5 mg PO #60 tab 05/06/19 05/06/19 Previous Rx's Medication Instructions Recorded zolpidem 10 mg tablet 10 mg PO QHS PRN #30 tab 06/14/19 hydroxyzine HCl 25 mg tablet 25 mg PO QHS 90 Days #90 tab 06/26/19 docusate sodium 100 mg capsule 100 mg PO BID #180 cap 07/08/19 potassium chloride 20 mEq See Rx Instructions .ROUTE 07/08/19 tablet,extended release(part/cryst) .COMPLEX #30 tablet losartan 100 See Rx Instructions .ROUTE 08/14/19 mg-hydrochlorothiazide 25 mg tablet .COMPLEX #90 tablet Ketorolac Tromethamine [Toradol 10 mg PO Q6H PRN 5 Days #20 tab 11/01/19 10mg tablet] allopurinol 100 mg tablet See Rx Instructions .ROUTE 02/20/20 .COMPLEX #90 tab
[2020-10-10 13:23] VITALS: BP 135/74; PULSE 61; RESP 18; TEMP 37; O2SAT 98
== END 2020-10-10 13:24 | disposition home or self-care (01) ==
PROVIDERS: Emergency Provider Nurse Practitioner; PCP Family Medicine
DX: J06.9 Acute upper respiratory infection, unspecified (principal); F41.8 Other specified anxiety disorders; K21.9 Gastro-esophageal reflux disease without esophagitis; E78.5 Hyperlipidemia, unspecified; M79.7 Fibromyalgia; Z79.899 Other long term (current) drug therapy; Z90.49 Acquired absence of other specified parts of digestive tract; Z90.79 Acquired absence of other genital organ(s)
CPT/HCPCS: 96372; 99201

== ENCOUNTER 2021-11-09 15:26 | Emergency (ER) | payer OTHER, SELFPAY ==
[2021-11-09 16:14] VITALS: BP 158/97; PULSE 96; RESP 18; TEMP 36.7; O2SAT 98; BMI 34.0
[2021-11-09 16:38] LABS: UTC Strep Screen (Rapid) Negative (Negative)
--- NOTE | 2021-11-09 16:42 | HMH.EDUTC ---
[facility] Disposition Clinical Impression: Viral syndrome, Exposure to COVID-19 virus Sinusitis Qualifiers: Sinusitis location: unspecified location Chronicity: acute Recurrence: non-recurrent Qualified Code(s): J01.90 - Acute sinusitis, unspecified Disposition: Home, Self-Care Condition on Discharge: Good Instructions: DI for Sinusitis, DI for COVID-19 (Suspected or Confirmed ), Preventing the Spread of Coronavirus Discharge Instructions Additional Instructions: Drink plenty of fluids. Take tylenol or ibuprofen for pain or fever. Take the medications as directed. Follow up with your regular doctor. GO TO THE ER FOR ANY WORSENING SYMPTOMS Quarantine until you know the results of your covid-19 test. If it is positive, the health department should call you and give you further instructions about your length of Quarantine and other things. Notify your school or workplace of your results and follow their instructions regarding return to work/school. Don't start the oral steroids until tomorrow, since you had the shot here today. Prescriptions: Benzonatate [Benzonatate 100mg cap] 100 mg PO TIDP PRN #30 cap PRN Reason: Cough Transmission Status: Received by [facility] methylPREDNISolone [Medrol] 4 mg PO DIRECTED 6 Days #21 packet Transmission Status: Received by [facility] guaiFENesin [Mucinex 600mg tablet] 1 - 2 tab PO BIDP PRN #30 tab PRN Reason: Congestion Transmission Status: Received by [facility] Azithromycin [Z-Alphonse 250mg Tab*] 250 mg PO UD DOSE PK #6 tab Transmission Status: Received by [facility] Referrals: Melissa Rao [Primary Care Provider] - Forms: Work/School Release Time of Disposition: 17:20 Medical Decision Making - Medical Records Medical records reviewed: No: I reviewed the patient's medical records. - Wai Inquiry Pt receiving controlled substance: No Vital Signs: 11/09/21 16:14 11/09/21 17:25 Temperature 98.1 F 98.1 F Temperature Source Oral Pulse Rate 96 H Pulse Rate [Left] 96 H Respiratory Rate 18 18 Blood Pressure 158/97 H Blood Pressure [Right Arm] 158/97 H Blood Pressure Mean [Right Arm] 117 02 Sat by Pulse Oximetry 98 - Lab Data Lab results reviewed: Yes: I reviewed the patient's lab results. Lab Results 11/09/21 16:16: Strep Scn [facility] Negative Orders (Tests/Meds): ED MEDICATIONS Discontinued Medications Generic Name Dose Route Start Last Admin Trade Name Alexander PRN Reason Stop Dose Admin Ceftriaxone Sodium 1 gm 11/09/21 17:14 11/09/21 17:23 Ceftriaxone 1gm Vial IM 11/09/21 17:15 1 gm ONCE ONE Administration Lidocaine HCl 0 ml 11/09/21 17:14 11/09/21 17:23 Lidocaine 1% 5ml Pf Vial IM 11/09/21 17:15 2 ml ONCE ONE Administration Methylprednisolone Sodium Succinate 125 mg 11/09/21 17:14 11/09/21 17:23 Methylprednisolone Sod Succ 125mg Vial IM 11/09/21 17:15 125 mg ONCE ONE Administration ORDERS Category Date Time Status Covid-19 Nasal PCR ([facility]) Routine Lab 11/09/21 17:30 Received Strep Screen Confirmation Routine Micro 11/09/21 16:16 Received [facility] HPI - General Stated complaint: sore throat congestion Time Seen by Provider: 11/09/21 16:42 Mode of Arrival: Ambulatory Source of Information: Patient Limitations: No Limitations Description of Symptoms (Recalled from Triage Doc. by RN): pt c/o a sore throat and congestion. x3 days. HEENT Symptoms (Recalled from RN notes): Yes (nasal drainage and sore throat) Resp Symptoms (Recalled from RN notes): No Skin Symptoms (Recalled from RN notes): No MS Symptoms (Recalled from RN notes): No Functional Status (Recalled from RN notes): wnl - History of Present Illness Provider Complaint: She states that she has been having chilling, sore throat, cough, chest congestion and sinus congestion for the past 3 days. She has not been vaccinated against covid-19. - Related Data H
[2021-11-09 17:25] VITALS: BP 158/97; PULSE 96; RESP 18; TEMP 36.7
== END 2021-11-09 17:35 | disposition home or self-care (01) ==
PROVIDERS: Emergency Provider Nurse Practitioner Family; PCP Family Medicine
DX: U07.1 COVID-19 (principal); J01.90 Acute sinusitis, unspecified; I10 Essential (primary) hypertension; E78.5 Hyperlipidemia, unspecified; M79.7 Fibromyalgia; K21.9 Gastro-esophageal reflux disease without esophagitis; F41.8 Other specified anxiety disorders; Z79.899 Other long term (current) drug therapy
CPT/HCPCS: 87880; 96372; 99202; C9803; G0463; U0003; U0005

== ENCOUNTER 2021-11-15 14:21 | Emergency (ER) | payer OTHER, SELFPAY ==
[2021-11-15 16:55] VITALS: BP 0/0; PULSE 0; RESP 0; TEMP -17.7; TEMP 0
== END 2021-11-15 16:56 | disposition left against medical advice (07) ==
LOC: UTC 14:22
PROVIDERS: Emergency Provider Nurse Practitioner; PCP Family Medicine
DX: Z53.21 Procedure and treatment not carried out due to patient leaving prior to being seen by health care provider (principal)

== ENCOUNTER 2021-11-16 10:45 | Emergency (ER) | payer OTHER, SELFPAY ==
[2021-11-16 11:45] VITALS: BP 182/101; PULSE 98; RESP 18; TEMP 37; O2SAT 95; BMI 34.0
--- NOTE | 2021-11-16 12:22 | HMH.EDUTC ---
[facility] – [place] Disposition Clinical Impression: Viral syndrome Disposition: Home, Self-Care Condition on Discharge: Good Instructions: DI for COVID-19 (Suspected or Confirmed ), Preventing the Spread of Coronavirus Discharge Instructions Additional Instructions: *Monitor Temp, Over the counter Motrin or Tylenol as directed/as needed Tylenol every 4 hours and Motrin every 6 hours (as long as your family doctor has told you that you can take it) for fever or pain. and straight to ER if unable to lower temp less than 101.0 after medication given *Warm salt water gargles may help to soothe the throat *Throat Lozenges *Warm fluids like tea with honey may help to soothe the throat *Sleep elevated *Humidifier/Vaporizer *If you qualify for the infusion and it is available they will contact you with appointment Follow up IMMEDIATELY for new or worsening symptoms or no Noticeable improvement over the next 48-72 hours. 911 for difficulty breathing or swallowing Referrals: Melissa Rao [Primary Care Provider] - As needed Forms: Work/School Release Time of Disposition: 12:37 Medical Decision Making - Wai Inquiry Pt receiving controlled substance: No Wai was queried for this patient: No Vital Signs: 11/16/21 11:45 11/16/21 12:39 Temperature 98.6 F 98.6 F Temperature Source Oral Pulse Rate 98 H Pulse Rate [Right Brachial] 98 H Respiratory Rate 18 18 Blood Pressure 167/92 H Blood Pressure [Right Arm] 182/101 H Blood Pressure Mean [Right Arm] 128 Blood Pressure Source [Right Arm] Automatic Cuff Blood Pressure Position [Right Arm] Sitting 02 Sat by Pulse Oximetry 95 Oxygen Delivery Method Room Air Medical Decision Narrative: Patient educated that Antibiotics do not help with COVID and at this time her lungs sounded clear that it was not recommended that she get more antibiotics and patient verbalized understanding Discussed with patient that we could order CXR and she declined States that she wanted to check on the infusion to see if she could get it to help her feel better however infusion not available at this time [facility] [place] HPI - General Stated complaint: COVID pos 11/09 worsening symptoms Time Seen by Provider: 11/16/21 12:22 Mode of Arrival: Ambulatory Source of Information: Patient Limitations: No Limitations Description of Symptoms (Recalled from Triage Doc. by RN): PATIENT REPORTS SHE TESTED POSITIVE FOR COVID ON 11/09/21. SHE STATES SHE IS NOTE FEELING BETTER. REQUESTING A SHOT AND A WORK EXCUSE HEENT Symptoms (Recalled from RN notes): No Resp Symptoms (Recalled from RN notes): No Skin Symptoms (Recalled from RN notes): No MS Symptoms (Recalled from RN notes): No Functional Status (Recalled from RN notes): WNL - History of Present Illness Provider Complaint: Patient state that she was tested for COVID on 11/09 and she was positive States that she got a shot and some oral medication and it did help some but she is still having symptoms State that she is still feeling achy, fatigued body aches and having cough States that she wasnt sure if she could come back in and get another shot or infusion to help her feel better - Related Data Home Medications Medication Instructions Recorded Confirmed buspirone 10 mg tablet 5 mg PO #60 tab 05/06/19 05/06/19 Previous Rx's Medication Instructions Recorded zolpidem 10 mg tablet 10 mg PO QHS PRN #30 tab 06/14/19 hydroxyzine HCl 25 mg tablet 25 mg PO QHS 90 Days #90 tab 06/26/19 docusate sodium 100 mg capsule 100 mg PO BID #180 cap 07/08/19 potassium chloride 20 mEq See Rx Instructions .ROUTE 07/08/19 tablet,extended release(part/cryst) .COMPLEX #30 tablet losartan 100 See Rx Instructions .ROUTE 08/14/19 mg-hydrochlorothiazide 25 mg tablet .COMPLEX #90 tablet Ketorolac Tromethamine [Toradol 10 mg PO Q6H PRN 5 Days #20 tab 11/01/19 10mg tablet] allopurinol 100 mg tablet See Rx Instructions .ROUTE 02/20/20 .COMPLEX #90 tab simvastatin 40 mg tablet Se
[2021-11-16 12:39] VITALS: BP 167/92; PULSE 98; RESP 18; TEMP 37; O2SAT 95
== END 2021-11-16 12:49 | disposition home or self-care (01) ==
PROVIDERS: Emergency Provider Nurse Practitioner; PCP Family Medicine
DX: B34.9 Viral infection, unspecified (principal); U07.1 COVID-19; F41.8 Other specified anxiety disorders; K21.9 Gastro-esophageal reflux disease without esophagitis; E78.5 Hyperlipidemia, unspecified; I10 Essential (primary) hypertension; Z79.899 Other long term (current) drug therapy
CPT/HCPCS: 99202; G0463

== ENCOUNTER 2022-03-13 16:18 | Emergency (ER) | payer OTHER, SELFPAY ==
[2022-03-13 16:35] VITALS: BP 141/102; PULSE 84; RESP 22; TEMP 36.6; O2SAT 99; BMI 31.1
--- NOTE | 2022-03-13 16:48 | HMH.EDUTC ---
[facility] [place] Disposition Clinical Impression: Otitis media Qualifiers: Otitis media type: suppurative Chronicity: acute Laterality: left Recurrence: non-recurrent Spontaneous tympanic membrane rupture: without spontaneous rupture Qualified Code(s): H66.002 - Acute suppurative otitis media without spontaneous rupture of ear drum, left ear Disposition: Home, Self-Care Condition on Discharge: Good Instructions: Middle Ear Infection Additional Instructions: Start antibiotic as soon as possible and be sure to take as ordered for full length of time even though he should start feeling better in 24-48 hours. Tylenol or Motrin as needed for pain or fever Encourage fluids, water, Gatorade, Powerade, Pedialyte if /toddler/child Warm compresses often helps when placed over ear Return immediately for new or worsening symptoms no noticeable improvement in 48-72 hours and in 10-14 days to ensure the ears are return to baseline. Follow-up with primary care Prescriptions: Amoxicillin [Amoxicillin 500mg Tab] 500 mg PO BID 10 Days #20 tab Transmission Status: Pending to [facility] Referrals: Melissa Rao [Primary Care Provider] - Time of Disposition: 16:53 Medical Decision Making - Wai Inquiry Pt receiving controlled substance: No [facility] [place] HPI - General Chief complaint: Ur[facility] Stated complaint: Runny nose, diarrhea, headache Time Seen by Provider: 03/13/22 16:48 Mode of Arrival: Ambulatory Source of Information: Patient Limitations: No Limitations - History of Present Illness Provider Complaint: 61 yr old female presents for left ear pain,león and diarreha - Related Data Home Medications Medication Instructions Recorded Confirmed buspirone 10 mg tablet 5 mg PO #60 tab 05/06/19 05/06/19 Previous Rx's Medication Instructions Recorded zolpidem 10 mg tablet 10 mg PO QHS PRN #30 tab 06/14/19 hydroxyzine HCl 25 mg tablet 25 mg PO QHS 90 Days #90 tab 06/26/19 docusate sodium 100 mg capsule 100 mg PO BID #180 cap 07/08/19 potassium chloride 20 mEq See Rx Instructions .ROUTE 07/08/19 tablet,extended release(part/cryst) .COMPLEX #30 tablet losartan 100 See Rx Instructions .ROUTE 08/14/19 mg-hydrochlorothiazide 25 mg tablet .COMPLEX #90 tablet Ketorolac Tromethamine [Toradol 10 mg PO Q6H PRN 5 Days #20 tab 11/01/19 10mg tablet] allopurinol 100 mg tablet See Rx Instructions .ROUTE 02/20/20 .COMPLEX #90 tab simvastatin 40 mg tablet See Rx Instructions .ROUTE 02/24/20 .COMPLEX #90 tab omeprazole 20 mg capsule,delayed 20 mg PO BID #180 cap 06/10/20 release Amoxicillin/Potassium Clav 1 tab PO Q12H 7 Days #14 tab 07/22/20 [Augmentin 875-125 Tablet] valacyclovir 500 mg tablet See Rx Instructions .ROUTE 07/29/20 .COMPLEX #90 tab aspirin 81 mg tablet,delayed 81 mg PO QDAY #90 tab 10/05/20 release Azithromycin [Z-Alphonse 250mg Tab*] 250 mg PO UD DOSE PK #6 tab 11/09/21 Benzonatate [Benzonatate 100mg 100 mg PO TIDP PRN #30 cap 11/09/21 cap] guaiFENesin [Mucinex 600mg tablet] 1 - 2 tab PO BIDP PRN #30 tab 11/09/21 methylPREDNISolone [Medrol] 4 mg PO DIRECTED 6 Days #21 11/09/21 packet Amoxicillin [Amoxicillin 500mg Tab] 500 mg PO BID 10 Days #20 tab 03/13/22 Allergies Allergy/AdvReac Type Severity Reaction Status Date / Time promethazine [From PHENERGAN] Allergy Intermediate Verified 06/19/19 16:09 [facility] History - Hepatitis A Screen Attestation statement:: This patient has been screened for Hepatitis A risk factors. I have reviewed the patient's past medical history: Yes Medical History: Reports:: Anxiety, Depression, Gastroesophageal Reflux Disease(GERD), Hyperlipidemia, Hypertension Denies:: Diabetes Mellitus Type 1, Diabetes Mellitus Type 2, Internal Pacemaker, Lung Disease, Seizures Other Medical History: Reports: Arthritis, Fibromyalgia, Liver Disease, Other Laterality Cases: Left: Arthroscopy Shoulder Other Surgeries: Yes: Cholecystectomy, Colonoscopy, Hysterec
[2022-03-13 17:02] VITALS: BP 142/102; PULSE 84; RESP 22; TEMP 36.6; O2SAT 99
== END 2022-03-13 17:09 | disposition home or self-care (01) ==
PROVIDERS: Emergency Provider Nurse Practitioner Family; PCP Family Medicine
DX: H66.002 Acute suppurative otitis media without spontaneous rupture of ear drum, left ear (principal)
CPT/HCPCS: 96372; 99213; G0463; J0696

== ENCOUNTER 2022-08-19 08:34 | Emergency (ER) | payer OTHER, SELFPAY ==
--- NOTE | 2022-08-19 08:53 | EXP.UTC ---
Discharge Plan Disposition Patient Disposition: Home, Self-Care Condition: Good Prescriptions Prescriptions: New azithromycin [Zithromax] 250 mg tablet 250 mg PO UD DOSE PK Qty: 6 0RF Rx Instructions: Take two (2) tablets today, then one (1) tablet days #2 thru #5 benzonatate [benzonatate] 100 mg capsule 100 mg PO TIDP PRN (Reason: Cough) Qty: 30 0RF methylprednisolone 4 mg Tablets,Dose Pack 4 mg PO DIRECTED Qty: 21 0RF No Action buspirone 10 mg tablet 5 mg PO Qty: 60 Label Comments: TAKE 1/2 TABLET TWICE DAILY hydroxyzine HCl 25 mg tablet 25 mg PO QHS 90 Days Qty: 90 0RF zolpidem 10 mg tablet 10 mg PO QHS PRN (Reason: insomnia) Qty: 30 0RF potassium chloride [Klor-Con M20] 20 mEq tablet,ER particles/crystals See Rx Instructions .ROUTE .COMPLEX Qty: 30 1RF Dose Instruction: TAKE 1 TABLET BY MOUTH EVERY DAY Rx Instructions: TAKE 1 TABLET BY MOUTH EVERY DAY docusate sodium 100 mg capsule 100 mg PO BID Qty: 180 0RF losartan-hydrochlorothiazide 100-25 mg tablet See Rx Instructions .ROUTE .COMPLEX Qty: 90 0RF Dose Instruction: TAKE 1 TAB BY MOUTH ONCE DAILY FOR HIGH BLOOD PRESSURE NEEDS A FOLLOW UP FOR REFILLS Rx Instructions: TAKE 1 TAB BY MOUTH ONCE DAILY FOR HIGH BLOOD PRESSURE NEEDS A FOLLOW UP FOR REFILLS allopurinol 100 mg tablet See Rx Instructions .ROUTE .COMPLEX Qty: 90 0RF Dose Instruction: TAKE 1 TABLET BY MOUTH EVERY DAY FOR GOUT Rx Instructions: TAKE 1 TABLET BY MOUTH EVERY DAY FOR GOUT simvastatin 40 mg tablet See Rx Instructions .ROUTE .COMPLEX Qty: 90 0RF Dose Instruction: TAKE 1 TABLET BY MOUTH AT BEDTIME Rx Instructions: TAKE 1 TABLET BY MOUTH AT BEDTIME omeprazole 20 mg capsule,delayed release(DR/EC) 20 mg PO BID Qty: 180 0RF valacyclovir 500 mg tablet See Rx Instructions .ROUTE .COMPLEX Qty: 90 0RF Dose Instruction: TAKE 1 TAB BY MOUTH ONCE DAILY FOR FEVER BLISTERS. Rx Instructions: TAKE 1 TAB BY MOUTH ONCE DAILY FOR FEVER BLISTERS. aspirin 81 mg tablet,delayed release (DR/EC) 81 mg PO QDAY Qty: 90 3RF azithromycin 250 MG tablet 250 mg PO UD DOSE PK Qty: 6 0RF Rx Instructions: Take two (2) tablets today, then one (1) tablet days #2 thru #5 methylprednisolone 4 MG tablets,dose pack 4 mg PO DIRECTED 6 Days Qty: 21 0RF guaifenesin 600 MG tablet extended release 12hr 1 - 2 tab PO BIDP PRN (Reason: Congestion) Qty: 30 0RF benzonatate 100 MG capsule 100 mg PO TIDP PRN (Reason: Cough) Qty: 30 0RF ketorolac 10 MG tablet 10 mg PO Q6H PRN (Reason: ear pain) 5 Days Qty: 20 0RF amoxicillin-pot clavulanate 1 EACH tablet 1 tab PO Q12H 7 Days Qty: 14 0RF amoxicillin 500 MG tablet 500 mg PO BID 10 Days Qty: 20 0RF Referrals Follow up/Referrals: Melissa Rao [Primary Care Provider] - See instructions Activity Restrictions/Add. Instructions Additional Instructions/Restrictions: Drink plenty of fluids. Take tylenol or ibuprofen for pain or fever. Take the medications as directed. Follow up with your regular doctor. GO TO THE ER FOR ANY WORSENING SYMPTOMS Quarantine until you know the results of your covid-19 test. Notify your school or workplace of your results and follow their instructions regarding return to work/school. Clinical Impressions Clinical Impression: Otitis media, Sinusitis Stand Alone Forms Stand Alone Forms: Work/School Release Instructions Patient Instructions: Sinusitis, DI for Sinusitis Discharge ED Provider: Pedro Dumont [facility] [place] HPI General Stated complaint: headache ear pain congestion Time Seen by Provider: 08/19/22 08:52 History of Present Illness Provider Complaint: She c/o left ear pain, sinus congestion, scratchy sore throat and malaise for the past 3 days. Related Data Home Medications Medication Instructions Recorded Confirmed
[2022-08-19 09:06] VITALS: BP 162/88; PULSE 96; RESP 17; TEMP 36.9; O2SAT 98; BMI 31.6
[2022-08-19 09:09] LABS: UTC Strep Screen (Rapid) Negative (Negative)
[2022-08-19 09:33] VITALS: BP 162/88; PULSE 96; RESP 17; TEMP 36.9
== END 2022-08-19 09:58 | disposition home or self-care (01) ==
LOC: ER 08:39 → UTC 08:39
PROVIDERS: Emergency Provider Nurse Practitioner Family; PCP Family Medicine
DX: H66.90 Otitis media, unspecified, unspecified ear (principal); J32.9 Chronic sinusitis, unspecified
CPT/HCPCS: 87880; 96372; 99212; G0463; J0696

== ENCOUNTER 2022-12-10 08:28 | Emergency (ER) | payer OTHER, SELFPAY ==
[2022-12-10 08:40] VITALS: BP 188/96; PULSE 72; RESP 20; TEMP 36.6; O2SAT 97; BMI 32.3
--- NOTE | 2022-12-10 08:42 | EXP.UTC ---
Discharge Plan Disposition Patient Disposition: Home, Self-Care Condition: Good Prescriptions Prescriptions: New benzonatate [benzonatate] 100 mg capsule 100 mg PO TIDP PRN (Reason: Cough) Qty: 30 0RF methylprednisolone 4 mg Tablets,Dose Pack 4 mg PO DIRECTED Qty: 21 0RF cefdinir 300 mg capsule 300 mg PO BID Qty: 20 0RF No Action buspirone 10 mg tablet 5 mg PO Qty: 60 Label Comments: TAKE 1/2 TABLET TWICE DAILY hydroxyzine HCl 25 mg tablet 25 mg PO QHS 90 Days Qty: 90 0RF zolpidem 10 mg tablet 10 mg PO QHS PRN (Reason: insomnia) Qty: 30 0RF potassium chloride [Klor-Con M20] 20 mEq tablet,ER particles/crystals See Rx Instructions .ROUTE .COMPLEX Qty: 30 1RF Dose Instruction: TAKE 1 TABLET BY MOUTH EVERY DAY Rx Instructions: TAKE 1 TABLET BY MOUTH EVERY DAY docusate sodium 100 mg capsule 100 mg PO BID Qty: 180 0RF losartan-hydrochlorothiazide 100-25 mg tablet See Rx Instructions .ROUTE .COMPLEX Qty: 90 0RF Dose Instruction: TAKE 1 TAB BY MOUTH ONCE DAILY FOR HIGH BLOOD PRESSURE NEEDS A FOLLOW UP FOR REFILLS Rx Instructions: TAKE 1 TAB BY MOUTH ONCE DAILY FOR HIGH BLOOD PRESSURE NEEDS A FOLLOW UP FOR REFILLS allopurinol 100 mg tablet See Rx Instructions .ROUTE .COMPLEX Qty: 90 0RF Dose Instruction: TAKE 1 TABLET BY MOUTH EVERY DAY FOR GOUT Rx Instructions: TAKE 1 TABLET BY MOUTH EVERY DAY FOR GOUT simvastatin 40 mg tablet See Rx Instructions .ROUTE .COMPLEX Qty: 90 0RF Dose Instruction: TAKE 1 TABLET BY MOUTH AT BEDTIME Rx Instructions: TAKE 1 TABLET BY MOUTH AT BEDTIME omeprazole 20 mg capsule,delayed release(DR/EC) 20 mg PO BID Qty: 180 0RF valacyclovir 500 mg tablet See Rx Instructions .ROUTE .COMPLEX Qty: 90 0RF Dose Instruction: TAKE 1 TAB BY MOUTH ONCE DAILY FOR FEVER BLISTERS. Rx Instructions: TAKE 1 TAB BY MOUTH ONCE DAILY FOR FEVER BLISTERS. aspirin 81 mg tablet,delayed release (DR/EC) 81 mg PO QDAY Qty: 90 3RF azithromycin 250 MG tablet 250 mg PO UD DOSE PK Qty: 6 0RF Rx Instructions: Take two (2) tablets today, then one (1) tablet days #2 thru #5 methylprednisolone 4 MG tablets,dose pack 4 mg PO DIRECTED 6 Days Qty: 21 0RF guaifenesin 600 MG tablet extended release 12hr 1 - 2 tab PO BIDP PRN (Reason: Congestion) Qty: 30 0RF benzonatate 100 MG capsule 100 mg PO TIDP PRN (Reason: Cough) Qty: 30 0RF ketorolac 10 MG tablet 10 mg PO Q6H PRN (Reason: ear pain) 5 Days Qty: 20 0RF amoxicillin-pot clavulanate 1 EACH tablet 1 tab PO Q12H 7 Days Qty: 14 0RF amoxicillin 500 MG tablet 500 mg PO BID 10 Days Qty: 20 0RF azithromycin [Zithromax] 250 mg tablet 250 mg PO UD DOSE PK Qty: 6 0RF Rx Instructions: Take two (2) tablets today, then one (1) tablet days #2 thru #5 benzonatate [benzonatate] 100 mg capsule 100 mg PO TIDP PRN (Reason: Cough) Qty: 30 0RF methylprednisolone 4 mg Tablets,Dose Pack 4 mg PO DIRECTED Qty: 21 0RF Referrals Follow up/Referrals: Melissa Rao [Primary Care Provider] - See instructions Activity Restrictions/Add. Instructions Additional Instructions/Restrictions: Drink plenty of fluids. Take tylenol or ibuprofen for pain or fever. Take the medications as directed. Follow up with your regular doctor. GO TO THE ER FOR ANY WORSENING SYMPTOMS Clinical Impressions Clinical Impression: Sinusitis, Otitis media Stand Alone Forms Stand Alone Forms: Work/School Release Instructions Patient Instructions: Middle Ear Infection, DI for Sinusitis Discharge ED Provider: Pedro Dumont [facility] [place] General Stated complaint: ear pain,headache Time Seen by Provider: 12/10/22 08:41 History of Present Illness Provider Complaint: She states that for the past 3 days she has had sinus congestion, sore throat and chest congestion. She has also had urin
[2022-12-10 09:57] VITALS: BP 188/96; PULSE 72; RESP 20; TEMP 36.6; O2SAT 97
== END 2022-12-10 09:57 | disposition home or self-care (01) ==
PROVIDERS: Emergency Provider Nurse Practitioner Family; PCP Family Medicine
DX: J32.9 Chronic sinusitis, unspecified (principal); H66.90 Otitis media, unspecified, unspecified ear
CPT/HCPCS: 99212; 99213; G0463; J0696

== ENCOUNTER 2023-05-16 16:31 | Emergency (ER) | payer OTHER, SELFPAY ==
[2023-05-16 16:33] VITALS: BP 135/70; PULSE 81; RESP 19; TEMP 36.9; O2SAT 97; BMI 29.2
--- NOTE | 2023-05-16 16:49 | EXP.UTC ---
Discharge Plan Disposition Patient Disposition: Home, Self-Care Condition: Good Prescriptions Prescriptions: New methylprednisolone [Medrol (Alphonse)] 4 mg tablets,dose pack See Rx Instructions .Route .COMPLEX 6 Days Qty: 21 0RF Rx Instructions: taper pack; No Action buspirone 10 mg tablet 5 mg PO Qty: 60 Patient Comments: TAKE 1/2 TABLET TWICE DAILY hydroxyzine HCl 25 mg tablet 25 mg PO QHS 90 Days Qty: 90 0RF zolpidem 10 mg tablet 10 mg PO QHS PRN (Reason: insomnia) Qty: 30 0RF potassium chloride [Klor-Con M20] 20 mEq tablet,ER particles/crystals See Rx Instructions .ROUTE .COMPLEX Qty: 30 1RF Dose Instruction: TAKE 1 TABLET BY MOUTH EVERY DAY Rx Instructions: TAKE 1 TABLET BY MOUTH EVERY DAY docusate sodium 100 mg capsule 100 mg PO BID Qty: 180 0RF losartan-hydrochlorothiazide 100-25 mg tablet See Rx Instructions .ROUTE .COMPLEX Qty: 90 0RF Dose Instruction: TAKE 1 TAB BY MOUTH ONCE DAILY FOR HIGH BLOOD PRESSURE NEEDS A FOLLOW UP FOR REFILLS Rx Instructions: TAKE 1 TAB BY MOUTH ONCE DAILY FOR HIGH BLOOD PRESSURE NEEDS A FOLLOW UP FOR REFILLS allopurinol 100 mg tablet See Rx Instructions .ROUTE .COMPLEX Qty: 90 0RF Dose Instruction: TAKE 1 TABLET BY MOUTH EVERY DAY FOR GOUT Rx Instructions: TAKE 1 TABLET BY MOUTH EVERY DAY FOR GOUT simvastatin 40 mg tablet See Rx Instructions .ROUTE .COMPLEX Qty: 90 0RF Dose Instruction: TAKE 1 TABLET BY MOUTH AT BEDTIME Rx Instructions: TAKE 1 TABLET BY MOUTH AT BEDTIME omeprazole 20 mg capsule,delayed release(DR/EC) 20 mg PO BID Qty: 180 0RF valacyclovir 500 mg tablet See Rx Instructions .ROUTE .COMPLEX Qty: 90 0RF Dose Instruction: TAKE 1 TAB BY MOUTH ONCE DAILY FOR FEVER BLISTERS. Rx Instructions: TAKE 1 TAB BY MOUTH ONCE DAILY FOR FEVER BLISTERS. aspirin 81 mg tablet,delayed release (DR/EC) 81 mg PO QDAY Qty: 90 3RF azithromycin 250 MG tablet 250 mg PO UD DOSE PK Qty: 6 0RF Rx Instructions: Take two (2) tablets today, then one (1) tablet days #2 thru #5 methylprednisolone 4 MG tablets,dose pack 4 mg PO DIRECTED 6 Days Qty: 21 0RF guaifenesin 600 MG tablet extended release 12hr 1 - 2 tab PO BIDP PRN (Reason: Congestion) Qty: 30 0RF benzonatate 100 MG capsule 100 mg PO TIDP PRN (Reason: Cough) Qty: 30 0RF ketorolac 10 MG tablet 10 mg PO Q6H PRN (Reason: ear pain) 5 Days Qty: 20 0RF amoxicillin-pot clavulanate 1 EACH tablet 1 tab PO Q12H 7 Days Qty: 14 0RF amoxicillin 500 MG tablet 500 mg PO BID 10 Days Qty: 20 0RF azithromycin [Zithromax] 250 mg tablet 250 mg PO UD DOSE PK Qty: 6 0RF Rx Instructions: Take two (2) tablets today, then one (1) tablet days #2 thru #5 benzonatate [benzonatate] 100 mg capsule 100 mg PO TIDP PRN (Reason: Cough) Qty: 30 0RF methylprednisolone 4 mg Tablets,Dose Pack 4 mg PO DIRECTED Qty: 21 0RF benzonatate [benzonatate] 100 mg capsule 100 mg PO TIDP PRN (Reason: Cough) Qty: 30 0RF methylprednisolone 4 mg Tablets,Dose Pack 4 mg PO DIRECTED Qty: 21 0RF cefdinir 300 mg capsule 300 mg PO BID Qty: 20 0RF Referrals Follow up/Referrals: Melissa Garcia MD [Primary Care Provider] - See instructions Activity Restrictions/Add. Instructions Additional Instructions/Restrictions: Start oral steriods tomorrow Follow up with your Family Doctor if no improvement or any worsening of symptoms Returm if needed Straight to ER if any life threatening symptoms Clinical Impressions Clinical Impression: Rash and nonspecific skin eruption Instructions Patient Instructions: DI for Rash, DI for Itching Discharge ED Provider: Tamiko Alcantara [facility] General Stated complaint: itchy, rash on chest Mode of Arrival: Ambulatory Source of Information: Patient Limitations: No Limitations Time Seen by Provider: 05/16/23
[2023-05-16 17:34] VITALS: BP 135/70; PULSE 81; RESP 19; TEMP 36.9; O2SAT 97
== END 2023-05-16 17:35 | disposition home or self-care (01) ==
PROVIDERS: Emergency Provider Nurse Practitioner; PCP Family Medicine
DX: R21 Rash and other nonspecific skin eruption (principal)
CPT/HCPCS: 96372; 99212; 99214; G0463

== ENCOUNTER 2023-12-14 16:41 | Emergency (ER) | payer OTHER, SELFPAY ==
[2023-12-14 16:50] VITALS: BP 169/87; PULSE 68; RESP 18; TEMP 36.9; O2SAT 98; BMI 29.9
--- NOTE | 2023-12-14 16:51 | ED_ITS ---
Discharge Plan Disposition Patient Disposition: Home, Self-Care Condition: Good Prescriptions Prescriptions: New phenazopyridine 200 mg Tablet 200 mg PO TID 2 Days Qty: 6 0RF ciprofloxacin HCl [Cipro] 500 mg tablet 500 mg PO BID 7 Days Qty: 14 0RF ondansetron 4 mg Tablet,Disintegrating 4 mg PO Q8H PRN (Reason: Nausea) Qty: 12 0RF No Action buspirone 10 mg tablet 5 mg PO Qty: 60 Patient Comments: TAKE 1/2 TABLET TWICE DAILY hydroxyzine HCl 25 mg tablet 25 mg PO QHS 90 Days Qty: 90 0RF zolpidem 10 mg tablet 10 mg PO QHS PRN (Reason: insomnia) Qty: 30 0RF potassium chloride [Klor-Con M20] 20 mEq tablet,ER particles/crystals See Rx Instructions .ROUTE .COMPLEX Qty: 30 1RF Dose Instruction: TAKE 1 TABLET BY MOUTH EVERY DAY Rx Instructions: TAKE 1 TABLET BY MOUTH EVERY DAY docusate sodium 100 mg capsule 100 mg PO BID Qty: 180 0RF losartan-hydrochlorothiazide 100-25 mg tablet See Rx Instructions .ROUTE .COMPLEX Qty: 90 0RF Dose Instruction: TAKE 1 TAB BY MOUTH ONCE DAILY FOR HIGH BLOOD PRESSURE NEEDS A FOLLOW UP FOR REFILLS Rx Instructions: TAKE 1 TAB BY MOUTH ONCE DAILY FOR HIGH BLOOD PRESSURE NEEDS A FOLLOW UP FOR REFILLS allopurinol 100 mg tablet See Rx Instructions .ROUTE .COMPLEX Qty: 90 0RF Dose Instruction: TAKE 1 TABLET BY MOUTH EVERY DAY FOR GOUT Rx Instructions: TAKE 1 TABLET BY MOUTH EVERY DAY FOR GOUT simvastatin 40 mg tablet See Rx Instructions .ROUTE .COMPLEX Qty: 90 0RF Dose Instruction: TAKE 1 TABLET BY MOUTH AT BEDTIME Rx Instructions: TAKE 1 TABLET BY MOUTH AT BEDTIME omeprazole 20 mg capsule,delayed release(DR/EC) 20 mg PO BID Qty: 180 0RF valacyclovir 500 mg tablet See Rx Instructions .ROUTE .COMPLEX Qty: 90 0RF Dose Instruction: TAKE 1 TAB BY MOUTH ONCE DAILY FOR FEVER BLISTERS. Rx Instructions: TAKE 1 TAB BY MOUTH ONCE DAILY FOR FEVER BLISTERS. aspirin 81 mg tablet,delayed release (DR/EC) 81 mg PO QDAY Qty: 90 3RF guaifenesin 600 MG tablet extended release 12hr 1 - 2 tab PO BIDP PRN (Reason: Congestion) Qty: 30 0RF ketorolac 10 MG tablet 10 mg PO Q6H PRN (Reason: ear pain) 5 Days Qty: 20 0RF Referrals Follow up/Referrals: Provider,Referral, MD [Primary Care Provider] - See instructions Activity Restrictions/Add. Instructions Additional Instructions/Restrictions: Drink plenty of fluids. Take tylenol or ibuprofen for pain or fever. Take the medications as directed. Follow up with your regular doctor. GO TO THE ER FOR ANY WORSENING SYMPTOMS The pyridium will make your urine turn orange, this is an expected side effect. It will stain your clothes if it comes into contact with them. We will culture the urine. That will tell what bacteria is causing your infection and which antibiotics will treat it best. Sometimes the first antibiotic we prescribe turns out to not work against different bacteria. So, make sure you follow up within 3 days if you are not getting better. Clinical Impressions Clinical Impression: UTI (urinary tract infection) Instructions Patient Instructions: Urinary Tract Infection, Urine Culture, DI for Urinary Tract Infection (UTI), Phenazopyridine Discharge ED Provider: Pedro Dumont [facility] General Stated complaint: urge to urinate all the time lower back pain Time Seen by Provider: 12/14/23 16:51 History of Present Illness Provider Complaint: she states that for the past 2 days she has had low back pain, dysuria, and urinary frequency. Related Data Home Medications Medication Instructions Recorded Confirmed buspirone 10 mg tablet 5 mg PO #60 tabs 05/06/19 05/06/19 Previous Rx's Medication Instructions Recorded zolpidem 10 mg tablet 10 mg PO QHS PRN insomnia #30 tabs 06/14/19 hydroxyzine HCl 25 mg tablet 25 mg PO QHS 90 days #90 tabs 06/26/19 docusate sodium 100 mg capsule 100 mg PO BID stool softner #180 07/08/19 caps potassium chloride 20 mEq See Rx Instructions .Route 07/08/19 tablet,extended .COMPLEX #30 tabs release(part/cryst) (Klor-Con M) losartan 100 See Rx Instructions .Route 08/14/19 mg-hydrochlorothiazide 25 mg tablet .COMPLEX #90 tabs ketorolac 10 mg tablet 10 mg PO Q6H PRN ear pain 5 days 11/01/19 #20 tabs allopurinol 100 mg tablet See Rx Instructions .Route 02/20/20 .COMPLEX #90 tabs simvastatin 40 mg tablet See Rx Instructions .Route 02/24/20 .COMPLEX #90 tabs omeprazole 20 mg capsule,delayed 20 mg PO BID #180 caps 06/10/20 release valacyclovir 500 mg tablet See Rx Instructions .Route 07/29/20 .COMPLEX #90 tabs aspirin 81 mg tablet,delayed 81 mg PO QDAY Blood thinner #90 10/05/20 release tabs guaifenesin 600 mg tablet, 1 - 2 tab PO BIDP PRN Congestion 11/09/21 extended release 12 hr #30 tabs ciprofloxacin HCl 500 mg tablet 500 mg PO BID 7 days #14 tabs 12/14/23 (Cipro) ondansetron 4 mg disintegrating 4 mg PO Q8H PRN Nausea #12 tabs 12/14/23 tablet phenazopyridine 200 mg tablet 200 mg PO TID 2 days #6 tabs 12/14/23 Allergies Allergy/AdvReac Type Severity Reaction Status Date / Time promethazine [From PHENERGAN] Allergy Intermediate Verified 12/14/23 17:16 [facility] Disclaimer: The information contained in this section may have been updated after the patient was seen, as this information can be updated by other users. Social History Smoking Status: Never smoker alcohol intake: never counseling provided: none substance use type: denies use current occupational status: other Travel in the last 8 weeks: None household members: children housing: house caffeine: No ROS Obtained: Yes All systems reviewed & no additional complaints except as documented Constitutional Constitutional: Reports system reviewed and no additional complaints, except as documented, Denies chills and Denies fever(s) Eyes Eyes: Denies eye discharge ENT Ears, Nose, Mouth, and Throat: Denies dysphagia, Denies sore throat and Denies throat swelling Cardiovascular Cardiovascular: Denies chest pain and Denies dyspnea Respiratory Respiratory: Denies chest congestion, Denies cough and Denies dyspnea Gastrointestinal Gastrointestingal: Denies abdominal pain, constipation, diarrhea, dysphagia, nausea or vomiting Genitourinary Female Genitourinary: Reports as per HPI, Reports dysuria, Reports urinary frequency, Denies urinary incontinence, Reports urinary hesitancy and Reports urinary urgency Musculoskeletal Musculoskeletal: Denies arthralgias and Reports back pain Integumentary/Breasts Skin/Breast: Denies rash Neurologic Neurologic: Denies paresthesias Allergic/Immunologic Allergic/Immunologic: Denies throat swelling Physical Exam General General appearance: alert and in no apparent distress Head Head exam: atraumatic and normocephalic Eye Eye exam: Present normal appearance, PERRL and EOMI ENT ENT exam: Present normal exam, mucous membranes moist, TM's normal bilaterally and normal external ear exam Neck Neck exam: Present normal inspection, full ROM and trachea midline; Absent tenderness, meningismus or lymphadenopathy Chest Chest inspection: Present normal inspection and symmetric chest wall rise; Absent tenderness Respiratory Respiratory exam: Present normal lung sounds bilaterally; Absent respiratory distress, wheezes or stridor Cardiovascular Cardiovascular exam: Present regular rate, normal rhythm and normal heart sounds Abdominal Exam Abdominal exam: Present soft and normal bowel sounds; Absent distention, tendern ess, guarding, rebound, rigidity, incision, psoas sign, obturator sign, heel tap sign, Villegas's sign, Rovsing's sign or tenderness at McBurney's Point Extremities Exam Extremities exam: Present normal inspection, full ROM and normal capillary refill; Absent tenderness, edema, joint swelling, calf tenderness or cyanosis Back Exam Back exam: Present normal inspection and full ROM; Absent tenderness, CVA tenderness (R) or CVA tenderness (L) Neurological Exam Neurological exam: Present alert, oriented X3 and normal gait Psychiatric Psychiatric exam: Present normal affect and normal mood Skin Skin exam: Present warm, dry, intact and normal color Lymphatic Lymphatic Findings: no adenopathy Medical Decision Making Medical Records Medical records reviewed: No I reviewed the patient's medical records. Wai Inquiry Pt receiving controlled substance: No Lab Data Lab results reviewed: Yes I reviewed the patient's lab results.
[2023-12-14 17:12] LABS: Apearance,Urine Clear (Clear); Bilirubin,Urine Negative (Negative); Color,Urine Yellow (Yellow); Glucose,Urine (UA) Negative (Negative); Ketones,Urine Negative (Negative); PH,Urine 5.5 (5.0-8.5); Protein,Urine Negative (Negative); UTC Leukocyte Esterase,Urine Negative (Negative); UTC Nitrate,Urine Negative (Negative); Urobilinogen,Urine 0.2 EU/dl (0.2)
[2023-12-14 17:19] LABS: Blood, Urine Trace (Negative)
[2023-12-14] MEDS: levoFLOXacin 500MG TAB 500 MG PO (17:44)
[2023-12-14 17:55] VITALS: BP 169/87; PULSE 68; RESP 18; TEMP 36.9; O2SAT 98
== END 2023-12-14 17:55 | disposition home or self-care (01) ==
PROVIDERS: Emergency Provider Nurse Practitioner Family
DX: N39.0 Urinary tract infection, site not specified (principal); M54.59 Other low back pain
CPT/HCPCS: 81003; 99212; 99214; G0463

== ENCOUNTER 2024-04-08 14:18 | Emergency (ER) | payer OTHER, SELFPAY ==
[2024-04-08 14:55] VITALS: BP 150/87; PULSE 78; RESP 20; TEMP 36.6; O2SAT 98; BMI 31.1
--- NOTE | 2024-04-08 15:26 | ED_ITS ---
Discharge Plan Disposition Patient Disposition: Home, Self-Care Condition: Good Prescriptions Prescriptions: No Action tizanidine 4 mg tablet 4 mg PO DAILY Patient Comments: TAKE 1 TABLET BY MOUTH DAILY. meloxicam 15 mg tablet 15 mg PO DAILY Patient Comments: TAKE 1 TABLET BY MOUTH DAILY FOR 90 DAYS. hydroxyzine HCl 50 mg tablet 50 mg PO DAILY Patient Comments: TAKE 1 TABLET BY MOUTH DAILY. omeprazole 40 mg capsule,delayed release(DR/EC) 40 mg PO DAILY Patient Comments: TAKE 1 CAPSULE BY MOUTH DAILY. amitriptyline 50 mg tablet 50 mg PO DAILY Patient Comments: TAKE 1 TABLET BY MOUTH NIGHTLY. levothyroxine 25 mcg tablet 25 mcg PO DAILY Patient Comments: TAKE 1 TABLET BY MOUTH DAILY. losartan-hydrochlorothiazide 50-12.5 mg tablet 1 tab PO DAILY Patient Comments: TAKE 1 TABLET BY MOUTH DAILY. zolpidem 12.5 mg tablet,ext release multiphase 12.5 mg PO DAILY Patient Comments: TAKE 1 TABLET BY MOUTH NIGHTLY NEEDED. Referrals Follow up/Referrals: Melissa Garcia MD [Primary Care Provider] - See instructions Samantha Estrada APRN [Nurse Practitioner] - See instructions (call office for appointment) Kiley Vang DPM [Staff Physician] - See instructions Activity Restrictions/Add. Instructions Additional Instructions/Restrictions: Follow up with your family doctor Follow up with [facility] for further evaluation Take your medications as prescribed Return if needed Clinical Impressions Clinical Impression: Foot pain, left Instructions Patient Instructions: DI for Foot Pain, How To Perform RICE (Rest, Ice, Compress, Elevate) Discharge ED Provider: Tamiko Alcantara [facility] General Stated complaint: Pain in L leg and foot Mode of Arrival: Ambulatory Source of Information: Patient Limitations: No Limitations Time Seen by Provider: 04/08/24 15:26 Description of Symptoms (Recalled from Triage Doc. by RN): PATIENT C/O LEFT FOOT AND LEG PAIN THAT STARTED IN DECEMBER. SHE REPORTS HAVING AN X-RAY DONE ON 01/09/24 HEENT Symptoms (Recalled from RN notes): No Resp Symptoms (Recalled from RN notes): No Skin Symptoms (Recalled from RN notes): No MS Symptoms (Recalled from RN notes): Yes Functional Status (Recalled from RN notes): WNL History of Present Illness Provider Complaint: Patient states that back in Dec she hurt her left foot and leg and she had a CT done States that she has been doing physical therapy awaiting to have an MRI but today her foot was bothering her more across the top not sure if she may have done something to hurt it or something so she came in to get it checked Related Data Home Medications Medication Instructions Recorded Confirmed amitriptyline 50 mg tablet 50 mg PO DAILY 04/08/24 04/08/24 hydroxyzine HCl 50 mg tablet 50 mg PO DAILY 04/08/24 04/08/24 levothyroxine 25 mcg tablet 25 mcg PO DAILY 04/08/24 04/08/24 losartan 50 mg-hydrochlorothiazide 1 tab PO DAILY 04/08/24 04/08/24 12.5 mg tablet meloxicam 15 mg tablet 15 mg PO DAILY 04/08/24 04/08/24 omeprazole 40 mg capsule,delayed 40 mg PO DAILY 04/08/24 04/08/24 release tizanidine 4 mg tablet 4 mg PO DAILY 04/08/24 04/08/24 zolpidem 12.5 mg tablet,extended 12.5 mg PO DAILY 04/08/24 04/08/24 release,multiphase Allergies Allergy/AdvReac Type Severity Reaction Status Date / Time promethazine [From PHENERGAN] Allergy Intermediate Verified 12/14/23 17:16 Worker's Comp Is this a Worker's Comp case?: No [facility] Disclaimer: The information contained in this section may have been updated after the patient was seen, as this information can be updated by other users. Medical History (Updated 04/08/24 @ 17:22 by Tamiko Alcantara APRN) History of gastroesophageal reflux (GERD) Depression Anxiety Hyperlipidemia Hypertension Surgical History (Updated 04/08/24 @ 15:08 by Venus Root RN) History of hysterectomy History of cholecystectomy Social History Smoking Status: Never smoker alcohol intake: never counseling provided: none substance use type: denies use current occupational status: other Travel in the last 8 weeks: None household members: children housing: house caffeine: No ROS Obtained: Yes All systems reviewed & no additional complaints except as documented and Yes Systems reviewed as appropriate & no additional complaints except as documented Constitutional Constitutional: Reports system reviewed and no additional complaints, except as documented and Reports as per HPI ENT Ears, Nose, Mouth, and Throat: Reports system reviewed and no additional complaints, except as documented and Reports as per HPI Cardiovascular Cardiovascular: Reports system reviewed and no additional complaints, except as documented and Reports as per HPI Respiratory Respiratory: Reports system reviewed and no additional complaints, except as documented and Reports as per HPI Gastrointestinal Gastrointestingal: Reports system reviewed and no additional complaints, except as documented and as per HPI Musculoskeletal Musculoskeletal: Reports system reviewed and no additional complaints, except as documented, Reports as per HPI and Reports other (pain in left foot across the top denies known injury since initial in Dec) Physical Exam General General appearance: alert and in no apparent distress ENT ENT exam: Present mucous membranes moist Respiratory Respiratory exam: Present normal lung sounds bilaterally; Absent respiratory distress or wheezes Cardiovascular Cardiovascular exam: Present regular rate, normal rhythm and normal heart sounds Expanded Lower Extremity Exam Left: Top foot image: 2 1. reports pain and tenderness initially hurt it in Dec and has been having pain since worse today Neurovascular/Tendon exam: Present normal capillary refill; Absent pulse deficit or motor deficit Gait: observed and normal Neurological Exam Neurological exam: Present alert, oriented X3 and normal gait Medical Decision Making Wai Inquiry Pt receiving controlled substance: No Wai was queried for this patient: No Vital Signs: 04/08/24 14:55 Temperature 97.9 F Temperature Source Oral Pulse Rate [Left Brachial] 78 Respiratory Rate 20 Blood Pressure [Left Arm] 150/87 H Blood Pressure Mean [Left Arm] 108 Blood Pressure Source [Left Arm] Automatic Cuff Blood Pressure Position [Left Arm] Sitting 02 Sat by Pulse Oximetry 98 Oxygen Delivery Method Room Air Radiology Data #1: Image(s): Foot/Toes Image Reviewed: Yes I have reviewed radiologist's interpretation IMPRESSION: There is no evidence of acute fracture.There is no evidence of malalignment or dislocation.
--- NOTE | 2024-04-08 15:30 | XR_ITS ---
PROCEDURE INFORMATION: Exam: XR Left Foot Exam date and time: 04/08/2024 3:46 PM Age: 63 years old Clinical indication: Pain; Foot; Left; Additional info: Continued pain and swelling since dec TECHNIQUE: Imaging protocol: Radiologic exam of the left foot. Views: 3 or more views. COMPARISON: No relevant prior studies available. FINDINGS: Bones/joints: Degenerative changes in the tarsal bones and 1st metatarsophalangeal joint and IP joint. There is no evidence of acute fracture.There is no evidence of malalignment or dislocation. Soft tissues: Soft tissue swelling over the dorsum of the foot IMPRESSION: There is no evidence of acute fracture.There is no evidence of malalignment or dislocation.
[2024-04-08] MEDS: ACETAMINOPHEN 325MG TAB 650 MG PO (17:30)
[2024-04-08 17:39] VITALS: BP 150/87; PULSE 78; RESP 20; TEMP 36.6; O2SAT 98
== END 2024-04-08 17:41 | disposition home or self-care (01) ==
PROVIDERS: Emergency Provider Nurse Practitioner; PCP Family Medicine
DX: M79.672 Pain in left foot (principal)
CPT/HCPCS: 73630; 99212; 99214; G0463

== ENCOUNTER 2024-07-10 10:54 | Emergency (ER) | payer OTHER, SELFPAY ==
[2024-07-10 11:05] VITALS: BP 179/83; PULSE 89; RESP 20; TEMP 36.8; O2SAT 97; BMI 30.4
--- NOTE | 2024-07-10 11:40 | EXP.UTC ---
Discharge Plan Disposition Patient Disposition: Home, Self-Care Condition: Good Prescriptions Prescriptions: New acyclovir 5 % cream 1 applic topical Q4H 7 Days Qty: 5 0RF methylprednisolone 4 mg Tablets,Dose Pack 4 mg PO DIRECTED 6 Days Qty: 21 0RF Rx Instructions: Take 1 pack as directed for 6 days No Action tizanidine 4 mg tablet 4 mg PO DAILY Patient Comments: TAKE 1 TABLET BY MOUTH DAILY. hydroxyzine HCl 50 mg tablet 50 mg PO DAILY Patient Comments: TAKE 1 TABLET BY MOUTH DAILY. allopurinol 100 mg tablet 100 mg PO DAILY Patient Comments: TAKE 1/2 TABLET BY MOUTH ONCE DAILY. omeprazole 40 mg capsule,delayed release(DR/EC) 40 mg PO DAILY Patient Comments: TAKE 1 CAPSULE BY MOUTH DAILY. amitriptyline 50 mg tablet 50 mg PO DAILY Patient Comments: TAKE 1 TABLET BY MOUTH NIGHTLY. levothyroxine 25 mcg tablet 25 mcg PO DAILY Patient Comments: TAKE 1 TABLET BY MOUTH DAILY. lorazepam 0.5 mg tablet 0.5 mg PO DAILY Patient Comments: TAKE 1 TABLET BY MOUTH DAILY NEEDED FOR ANXIETY. zolpidem 12.5 mg tablet,ext release multiphase 12.5 mg PO HS Patient Comments: TAKE 1 TABLET BY MOUTH NIGHTLY NEEDED. Referrals Follow up/Referrals: Vanessa Andres DO [Primary Care Provider] - See instructions Activity Restrictions/Add. Instructions Additional Instructions/Restrictions: Drink plenty of fluids. Take tylenol or ibuprofen for pain or fever. Take the medications as directed. Follow up with your regular doctor. GO TO THE ER FOR ANY WORSENING SYMPTOMS Don't start the oral steroids (medrol dose pack) until tomorrow since you had the shot here Clinical Impressions Clinical Impression: Fever blister Stand Alone Forms Stand Alone Forms: Work/School Release Instructions Patient Instructions: Methylprednisolone, Dexamethasone Injection Print Language Print Language: Japanese Discharge ED Provider: Pedro Dumont [facility] HPI General Stated complaint: fever blisters Mode of Arrival: Ambulatory Source of Information: Patient Limitations: No Limitations Time Seen by Provider: 07/10/24 11:21 Description of Symptoms (Recalled from Triage Doc. by RN): PATIENT C/O FEVER BLISTERS TO MOUTH SINCE YESTERDAY MORNING HEENT Symptoms (Recalled from RN notes): Yes Resp Symptoms (Recalled from RN notes): No Skin Symptoms (Recalled from RN notes): No MS Symptoms (Recalled from RN notes): No Functional Status (Recalled from RN notes): WNL Related Data Home Medications ?Medication ?Instructions ?Recorded ?Confirmed allopurinol 100 mg tablet 100 mg PO DAILY 07/10/24 07/10/24 amitriptyline 50 mg tablet 50 mg PO DAILY 07/10/24 07/10/24 hydroxyzine HCl 50 mg tablet 50 mg PO DAILY 07/10/24 07/10/24 levothyroxine 25 mcg tablet 25 mcg PO DAILY 07/10/24 07/10/24 lorazepam 0.5 mg tablet 0.5 mg PO DAILY 07/10/24 07/10/24 omeprazole 40 mg capsule,delayed 40 mg PO DAILY 07/10/24 07/10/24 release tizanidine 4 mg tablet 4 mg PO DAILY 07/10/24 07/10/24 zolpidem 12.5 mg tablet,extended 12.5 mg PO HS 07/10/24 07/10/24 release,multiphase Previous Rx's ?Medication ?Instructions ?Recorded acyclovir 5 % topical cream 1 applic topical Q4H 7 days #5 07/10/24 grams methylprednisolone 4 mg tablets in 4 mg PO DIRECTED 6 days #21 tabs 07/10/24 a dose pack Allergies Allergy/AdvReac Type Severity Reaction Status Date / Time promethazine [From PHENERGAN] Allergy Intermediate Verified 12/14/23 17:16 Worker's Comp Is this a Worker's Comp case?: No [facility] Disclaimer: The information contained in this section may have been updated after the patient was seen, as this information can be updated by other users. Medical History (Updated 07/10/24 @ 12:29 by Venus Root RN) History of gastroesophageal reflux (GERD) Depression Anxiety Hyperlipidemia Hypertension Surgical History
[2024-07-10 12:27] VITALS: BP 179/83; PULSE 89; RESP 20; TEMP 36.8; O2SAT 97
== END 2024-07-10 12:28 | disposition home or self-care (01) ==
PROVIDERS: Emergency Provider Nurse Practitioner Family; PCP Student in an Organized Health Care Education/Training Program
DX: B00.1 Herpesviral vesicular dermatitis (principal)
CPT/HCPCS: 96372; 99212; 99214; G0463; J1100

== ENCOUNTER 2024-11-01 16:22 | Emergency (ER) | payer OTHER, SELFPAY ==
[2024-11-01 16:40] VITALS: BP 127/88; PULSE 99; RESP 17; TEMP 36.9; O2SAT 98
--- NOTE | 2024-11-01 16:58 | EXP.UTC ---
Discharge Plan Disposition Patient Disposition: Home, Self-Care Condition: Good Prescriptions Prescriptions: New amoxicillin 500 mg capsule 500 mg PO TID 7 Days Qty: 21 0RF fluticasone propionate [Flonase Allergy Relief] 50 mcg/actuation spray,suspension 2 spray intranasal DAILY Qty: 16 0RF Rx Instructions: administer into each nostril daily No Action metformin 500 mg tablet 500 mg PO BID Patient Comments: TAKE 1 TABLET BY MOUTH 2 TIMES DAILY tizanidine 2 mg tablet 2 mg PO BID Patient Comments: TAKE 2 TABLETS BY MOUTH ONCE DAILY hydroxyzine HCl 50 mg tablet 50 mg PO DAILY Patient Comments: TAKE 1 TABLET BY MOUTH DAILY FOR 180 DAYS. omeprazole 40 mg capsule,delayed release(DR/EC) 40 mg PO DAILY Patient Comments: TAKE 1 CAPSULE BY MOUTH DAILY. amitriptyline 50 mg tablet 50 mg PO HS Patient Comments: TAKE 1 TABLET BY MOUTH NIGHTLY. lorazepam 0.5 mg tablet 0.5 mg PO DAILY Patient Comments: TAKE 1 TABLET BY MOUTH DAILY NEEDED FOR ANXIETY. losartan-hydrochlorothiazide 50-12.5 mg tablet 1 tab PO DAILY Patient Comments: TAKE 1 TABLET BY MOUTH DAILY. amitriptyline 100 mg tablet 100 mg PO HS Patient Comments: TAKE 1 TABLET BY MOUTH NIGHTLY bupropion HCl 150 mg tablet extended release 24 hr 150 mg PO DAILY Patient Comments: TAKE 1 TABLET BY MOUTH EVERY MORNING. zolpidem 12.5 mg tablet,ext release multiphase 12.5 mg PO HS Patient Comments: TAKE 1 TABLET BY MOUTH NIGHTLY NEEDED. Referrals Follow up/Referrals: Vanessa Andres DO [Primary Care Provider] - See instructions Activity Restrictions/Add. Instructions Additional Instructions/Restrictions: *Monitor Temp, Over the counter Motrin or Tylenol as directed/as needed Tylenol every 4 hours and Motrin every 6 hours (as long as your family doctor has told you that you can take it) for fever or pain. and straight to ER if unable to lower temp less than 101.0 after medication given *Warm salt water gargles may help to soothe the throat *Throat Lozenges? *Warm fluids like tea with honey may help to soothe the throat? *Sleep elevated *Humidifier/Vaporizer Start oral amoxicillin tomorrow Your throat swab was sent for culture. Those results are typically sent to your primary care. Be sure to follow up in 2-3 days with your family doctor/primary care physician if no improvement so they can review those result and treat if necessary. If you don?t have a primary care doctor, I recommend you get one but in the mean time, you will have to return to a walk in clinic Follow up IMMEDIATELY for new or worsening symptoms or no Noticeable improvement over the next 48-72 hours. 911 for difficulty breathing or swallowing Clinical Impressions Clinical Impression: Otitis media Qualifiers: Otitis media type: unspecified Laterality: left Qualified Code(s): H66.92 - Otitis media, unspecified, left ear Stand Alone Forms Stand Alone Forms: Work/School Release Instructions Patient Instructions: Middle Ear Infection, Amoxicillin Print Language Print Language: Yoruba Discharge ED Provider: Tamiko Alcantara [facility] HPI General Stated complaint: sore throat,body aches Mode of Arrival: Ambulatory Source of Information: Patient Limitations: No Limitations Time Seen by Provider: 11/01/24 16:58 Description of Symptoms (Recalled from Triage Doc. by RN): PATIENT C/O SORE THROAT, BODY ACHES, CHILLS, EAR PAIN, AND DRY MOUTH SINCE YESTERDAY HEENT Symptoms (Recalled from RN notes): Yes Resp Symptoms (Recalled from RN notes): No Skin Symptoms (Recalled from RN notes): No MS Symptoms (Recalled from RN notes): No Functional Status (Recalled from RN notes): WNL History of Present Illness Provider Complaint: Patient states that she hasnt felt well in several days States that she has been having ear pain and pressure, sore throat, feeling achy, head and sinus congestion and over all not feeling well states that she thinks she has a ear or sinus infection Related Data Home Medications ?Medication ?Instructions ?Recorded ?Confirmed amitriptyline 100 mg tablet 100 mg PO HS 11/01/24 11/01/24 amitriptyline 50 mg tablet 50 mg PO HS 11/01/24 11/01/24 bupropion HCl 150 mg 24 hr tablet, 150 mg PO DAILY 11/01/24 11/01/24 extended release hydroxyzine HCl 50 mg tablet 50 mg PO DAILY 11/01/24 11/01/24 lorazepam 0.5 mg tablet 0.5 mg PO DAILY 11/01/24 11/01/24 losartan 50 mg-hydrochlorothiazide 1 tab PO DAILY 11/01/24 11/01/24 12.5 mg tablet metformin 500 mg tablet 500 mg PO BID 11/01/24 11/01/24 omeprazole 40 mg capsule,delayed 40 mg PO DAILY 11/01/24 11/01/24 release tizanidine 2 mg tablet 2 mg PO BID 11/01/24 11/01/24 zolpidem 12.5 mg tablet,extended 12.5 mg PO HS 11/01/24 11/01/24 release,multiphase Previous Rx's ?Medication ?Instructions ?Recorded amoxicillin 500 mg capsule 500 mg PO TID 7 days #21 caps 11/01/24 fluticasone propionate 50 2 spray intranasal DAILY #16 grams 11/01/24 mcg/actuation nasal spray,suspension (Flonase Allergy Relief) Allergies Allergy/AdvReac Type Severity Reaction Status Date / Time promethazine (From PHENERGAN) Allergy Intermediate Verified 12/14/23 17:16 Worker's Comp Is this a Worker's Comp case?: No [facility] Disclaimer: The information contained in this section may have been updated after the patient was seen, as this information can be updated by other users. Medical History (Updated 11/01/24 @ 17:23 by Tamiko Alcantara APRN) History of gastroesophageal reflux (GERD) Depression Anxiety Hyperlipidemia Hypertension Surgical History (Updated 04/08/24 @ 15:08 by Venus Root RN) History of hysterectomy History of cholecystectomy Social History Smoking Status: Never smoker alcohol intake: never counseling provided: none substance use type: denies use current occupational status: other Travel in the last 8 weeks: None household members: children housing: house caffeine: No Have you lived/traveled outside US in past 30 days?: No Contact w/someone who lives/traveled outside US past 30 days?: No Exposure to someone with infectious disease in past 14 days?: No Do you have a fever (greater than 100.4 F or 38 C)?: No Have you tested positive for COVID-19: No Exposed to someone with COVID-19 in past 14 days?: No Do you have a sore throat?: Yes Do you have a cough?: No Do you have any weakness?: No Do you have any diarrhea?: No Are you experiencing any unusual bleeding?: No Do you have any muscle aches/pain?: Yes Do you have any abdominal pain?: No Are you experiencing loss of taste or smell?: No ROS Obtained: Yes All systems reviewed & no additional complaints except as documented and Yes Systems reviewed as appropriate & no additional complaints except as documented Constitutional Constitutional: Reports system reviewed and no additional complaints, except as documented, Reports as per HPI, Reports body ache and Reports headache(s) ENT Ears, Nose, Mouth, and Throat: Reports system reviewed and no additional complaints, except as documented, Reports as per HPI, Reports otalgia, Reports headache(s), Reports nasal congestion, Reports nasal discharge, Reports sinus pressure and Reports sore throat Cardiovascular Cardiovascular: Reports system reviewed and no additional complaints, except as documented and Reports as per HPI Respiratory Respiratory: Reports system reviewed and no additional complaints, except as documented and Reports as per HPI Gastrointestinal Gastrointestingal: Reports system reviewed and no additional complaints, except as documented and as per HPI Neurologic Neurologic: Reports headache(s) Physical Exam General General appearance: alert and in no apparent distress ENT ENT exam: Present mucous membranes moist Expanded ENT Exam TM/Canal exam: Left TM: erythema and bulging Nose exam: Present sinus tenderness Throat exam: Present normal inspection Respiratory Respiratory exam: Present normal lung sounds bilaterally; Absent respiratory distress or wheezes Cardiovascular Cardiovascular exam: Present regular rate, normal rhythm and normal heart sounds Abdominal Exam Abdominal exam: Present soft and normal bowel sounds; Absent distention or tenderness Neurological Exam Neurological exam: Present alert, oriented X3 and normal gait Medical Decision Making Medical Records Screening: Per USPSTF and CDC recommendations, given the prevalence of disease in our region, it is our hospital?s policy to screen for HIV and viral Hepatitis for all patients aged 18 and over and those with ongoing risk factors. Wai Inquiry Pt receiving controlled substance: No Wai was queried for this patient: No Vital Signs: 11/01/24 16:40 Temperature 98.5 F Temperature Source Oral Pulse Rate [Left Brachial] 99 H Respiratory Rate 17 Blood Pressure [Left Arm] 127/88 Blood Pressure Mean [Left Arm] 101 Blood Pressure Source [Left Arm] Automatic Cuff Blood Pressure Position [Left Arm] Sitting 02 Sat by Pulse Oximetry 98 Oxygen Delivery Method Room Air Lab Data Lab results reviewed: Yes I reviewed the patient's lab results.
[2024-11-01] MEDS: METHYLPREDNISOLONE SOD SUCC 125MG VIAL 125 MG IM (17:16)
[2024-11-01] MEDS: cefTRIAXone 1GM VIAL 1 GM IM (17:16)
[2024-11-01] MEDS: LIDOCAINE 1% 5ML PF VIAL IM (17:16)
[2024-11-01 17:18] LABS: UTC Influenza A Antigen Negative (Negative); UTC Influenza B Antigen Negative (Negative); UTC Strep Screen (Rapid) Negative (Negative)
[2024-11-01 17:20] VITALS: BP 127/88; PULSE 99; RESP 17; TEMP 36.9; O2SAT 98
== END 2024-11-01 17:29 | disposition home or self-care (01) ==
PROVIDERS: Emergency Provider Nurse Practitioner; PCP Student in an Organized Health Care Education/Training Program
DX: H66.92 Otitis media, unspecified, left ear (principal); H92.09 Otalgia, unspecified ear; R07.0 Pain in throat; R09.81 Nasal congestion; R51.9 Headache, unspecified
CPT/HCPCS: 87804; 87880; 99212; G0381; J0696; J2919

== ENCOUNTER 2025-01-01 16:20 | Outpatient (CLI) | payer OTHER, SELFPAY ==
[2025-01-01 18:19] LABS: Basophils # 0.1 K/mm3 (0-0.2); Basophils % 0.7 % (0.1-2.0); Eosinophils # 0.3 K/mm3 (0.0-0.4); Eosinophils % 3.5 % (0.1-12.0); Hematocrit 37.1 % (37.0-47.0); Lymphocytes # 3.3 K/mm3 (0.7-4.5); Mean Corpuscular HGB Conc 32.3 g/dL (31.8-35.4); Mean Corpuscular Hemoglobin 28.4 pg (27.0-31.2); Mean Corpuscular Volume 87.7 fl (81-99); Mean Platelet Volume 10.1 fl (7.4-10.4); Monocytes # 0.5 K/mm3 (0.1-1.0); Monocytes % 6.1 % (1.7-9.3); Neutrophils # 4.3 K/mm3 (1.8-7.8); Neutrophils % 49.9 % (37.0-80.0); Platelet Count 331 K/mm3 (142-424); Red Blood Count 4.23 M/mm3 (4.20-5.40); Red Cell Distribution Width 13.1 % (11.5-17.5); White Blood Count 8.6 K/mm3 (4.8-10.8)
[2025-01-01 18:34] LABS: Albumin Level 4.7 g/dl (3.5-5.0); Chloride 105 mmol/L (98-107)
[2025-01-01 18:35] LABS: Potassium 3.7 mmoL/L (3.5-5.1); Sodium 140 mmol/L (136-145)
[2025-01-01 18:37] LABS: Alanine Aminotransferase 87 U/L (12-78); Anion Gap 12.7 mEq/L (5-15); Aspartate Amino Transferase 63 U/L (14-36); Blood Urea Nitrogen 13 mg/dl (7-17); Carbon Dioxide 26 mmol/L (22.0-30.0); Estimated Glomerular Filt Rate 101 ml/min (>60); GFR (African American) 123 ML/MIN (>60)
[2025-01-01 18:38] LABS: Albumin/Globulin Ratio 1.9 (1.1-1.8); Alkaline Phosphatase 87 U/L (38-126); Bilirubin,Total 0.4 mg/dl (0.2-1.3); Calcium 9.8 mg/dl (8.4-10.2); Chol/HDL Ratio 3.2 (1-3.5); Cholesterol 255 mg/dl (140-200); Globulin 2.5 g/dL (1.3-3.2); Glucose 93 mg/dl (74-100); HDL Cholesterol 79 mg/dl (40-60); Total Protein,Serum 7.2 g/dl (6.3-8.2); Triglycerides 147 mg/dl (30-150); VLDL Cholesterol 29 mg/dL (0-40)
[2025-01-01 18:51] LABS: Direct LDL Cholesterol 150.02 mg/dL (100-129)
[2025-01-01 18:56] LABS: Creatinine,Urine Random 118 mg/dL (Not Estab.)
[2025-01-01 19:10] LABS: Thyroid Stimulating Hormone 2.29 uIU/mL (0.465-4.68)
[2025-01-01 19:16] LABS: Microalbumin/Creatinine Ratio 120.9
[2025-01-01 19:19] LABS: Free T4 (Free Thyroxine) 0.94 ng/dl (0.78-2.19)
[2025-01-01 19:52] LABS: Hemoglobin A1C 5.4 % (4.0-6.0)
[2025-01-01 21:07] LABS: Vitamin B12 858 pg/mL (239-931)
== END 2025-01-01 23:59 | disposition home or self-care (01) ==
LOC: LAB.DROPOF 01-02 12:35
PROVIDERS: PCP Nurse Practitioner; Visit Provider Nurse Practitioner
DX: R73.01 Impaired fasting glucose (principal); I10 Essential (primary) hypertension; E78.5 Hyperlipidemia, unspecified; Z87.19 Personal history of other diseases of the digestive system
CPT/HCPCS: 80053; 80061; 82043; 82570; 82607; 83036; 84439; 84443; 85025

== ENCOUNTER 2025-01-02 19:47 | Emergency (ER) | payer OTHER, SELFPAY ==
[2025-01-02] VITALS (7 sets, daily range): BP systolic 122–197; BP diastolic 53–101; PULSE 66–89; RESP 11–19; TEMP 36.6–37; O2SAT 95–99; BMI 32.5
--- NOTE | 2025-01-02 19:56 | XR_ITS ---
PROCEDURE INFORMATION: Exam: XR Chest Exam date and time: 01/02/2025 8:03 PM Age: 64 years old Clinical indication: Pain; Chest pressure TECHNIQUE: Imaging protocol: Radiologic exam of the chest. Views: 2 views. COMPARISON: CR XR CHEST 2V 01/30/2020 12:41 PM FINDINGS: Lungs: Unremarkable. No consolidation. Pleural spaces: Unremarkable. No pleural effusion. No pneumothorax. Heart/Mediastinum: Unremarkable. No cardiomegaly. Bones/joints: Unremarkable. IMPRESSION: No acute findings.
--- NOTE | 2025-01-02 19:57 | ECG_ITS ---
APPROVED REPORT Exam: Resting ECG HR:85 bpm ECG Measurements Heart Rate 85 AXES WA 136 P 66 QRSd 94 QRS 3 QT 376 T 58 QTc 418 Conclusion SINUS RHYTHM NONSPECIFIC ST & T-WAVE ABNORMALITY BORDERLINE ECG UNCONFIRMED REPORT Electronically signed by : PILAR NULL, 01/02/2025 23:55:49
[2025-01-02 20:22] LABS: Chloride 105 mmol/L (98-107)
[2025-01-02 20:23] LABS: Basophils # 0.1 K/mm3 (0-0.2); Basophils % 0.7 % (0.1-2.0); Eosinophils # 0.4 K/mm3 (0.0-0.4); Eosinophils % 3.9 % (0.1-12.0); Hematocrit 41.9 % (37.0-47.0); Hemoglobin 13.5 g/dL (12.2-16.2); Lymphocytes % 42.3 % (10-50); Mean Corpuscular HGB Conc 32.2 g/dL (31.8-35.4); Mean Corpuscular Hemoglobin 28.7 pg (27.0-31.2); Mean Corpuscular Volume 89.1 fl (81-99); Mean Platelet Volume 9.3 fl (7.4-10.4); Monocytes # 0.6 K/mm3 (0.1-1.0); Monocytes % 6.5 % (1.7-9.3); Neutrophils # 4.3 K/mm3 (1.8-7.8); Neutrophils % 45.5 % (37.0-80.0); Platelet Count 354 K/mm3 (142-424); Potassium 3.6 mmoL/L (3.5-5.1); Red Cell Distribution Width 13.1 % (11.5-17.5); Sodium 141 mmol/L (136-145); White Blood Count 9.5 K/mm3 (4.8-10.8)
[2025-01-02 20:26] LABS: Alanine Aminotransferase 94 U/L (12-78); Albumin/Globulin Ratio 1.5 (1.1-1.8); Alkaline Phosphatase 90 U/L (38-126); Anion Gap 14.6 mEq/L (5-15); Aspartate Amino Transferase 111 U/L (14-36); Bilirubin,Total 0.8 mg/dl (0.2-1.3); Blood Urea Nitrogen 10 mg/dl (7-17); Calcium 10.2 mg/dl (8.4-10.2); Carbon Dioxide 25 mmol/L (22.0-30.0); Chol/HDL Ratio 3.6 (1-3.5); Cholesterol 284 mg/dl (140-200); Creatinine Clearance Estimated 74 mL/min (50-200); Estimated Glomerular Filt Rate 101 ml/min (>60); GFR (African American) 123 ML/MIN (>60); Globulin 3.3 g/dL (1.3-3.2); Glucose 93 mg/dl (74-100); HDL Cholesterol 80 mg/dl (40-60); Total Protein,Serum 8.3 g/dl (6.3-8.2); Triglycerides 183 mg/dl (30-150); VLDL Cholesterol 37 mg/dL (0-40)
[2025-01-02 20:37] LABS: Direct LDL Cholesterol 156.71 mg/dL (100-129)
[2025-01-02 20:41] LABS: Troponin I < 0.01 ng/ml (0.00-0.034)
[2025-01-02 21:02] LABS: HCG Qualitative, Serum Negative (Negative)
--- NOTE | 2025-01-02 21:07 | CT_ITS ---
PROCEDURE INFORMATION: Exam: CT Head Without Contrast Exam date and time: 01/02/2025 9:25 PM Age: 64 years old Clinical indication: Pain; Headache TECHNIQUE: Imaging protocol: Computed tomography of the head without contrast. Radiation optimization: All CT scans at this facility use at least one of these dose optimization techniques: automated exposure control; mA and/or kV adjustment per patient size (includes targeted exams where dose is matched to clinical indication); or iterative reconstruction. COMPARISON: BRAINWW MR head/brain wo/w con 04/17/2018 1:21 PM FINDINGS: Brain: No hemorrhage. Unremarkable white matter. No mass effect. Cerebral ventricles: No ventriculomegaly. Paranasal sinuses: Visualized sinuses are unremarkable. No fluid levels. Mastoid air cells: Visualized mastoid air cells are well aerated. Bones: Unremarkable. No acute fracture. Soft tissues: Unremarkable. IMPRESSION: No acute intracranial abnormality.
--- NOTE | 2025-01-02 21:08 | ED_ITS ---
Discharge Plan Disposition Patient Disposition: Home, Self-Care Condition: Good Prescriptions Prescriptions: No Action hydroxyzine HCl 50 mg tablet 50 mg PO DAILY Qty: 90 1RF losartan-hydrochlorothiazide 50-12.5 mg tablet 1 tab PO DAILY Qty: 90 1RF valacyclovir 500 mg tablet 500 mg PO DAILY Qty: 90 1RF tizanidine 4 mg tablet 4 mg PO BID Qty: 180 1RF omeprazole 40 mg capsule,delayed release(DR/EC) 40 mg PO DAILY Patient Comments: TAKE 1 CAPSULE BY MOUTH DAILY. lorazepam 0.5 mg tablet 0.5 mg PO DAILY Patient Comments: TAKE 1 TABLET BY MOUTH DAILY NEEDED FOR ANXIETY. zolpidem 12.5 mg tablet,ext release multiphase 12.5 mg PO HS Patient Comments: TAKE 1 TABLET BY MOUTH NIGHTLY NEEDED. Referrals Follow up/Referrals: Jelly Oliver APRN [Primary Care Provider] - See instructions Activity Restrictions/Add. Instructions Additional Instructions/Restrictions: You were evaluated in the emergency department today. Please keep a log of your blood pressures twice daily as instructed and follow-up closely with your primary care provider for that. Return to the emergency department for new or worsening symptoms. Clinical Impressions Clinical Impression: High blood pressure, Headache, Transaminitis Stand Alone Forms Stand Alone Forms: Work/School Release Instructions Patient Instructions: DI for High Blood Pressure, DI for Headache Print Language Print Language: Lithuanian Discharge ED Provider: Inna Gaitan General Chief Complaint: Chest Pain Stated Complaint: HBP Time Seen by Provider: 01/02/25 20:57 Mode of Arrival: Ambulatory Source of Information: Patient Limitations: No Limitations Description of Symptoms (Recalled from ER Triage Doc. by RN): Pt presents for evaluation of her blood pressure. Pt states her BP has been running higher than normal for the last week. Pt states she is compliant with her medications. Pt states she has been having a feeling of chest heavniess and dizziness. Pt states she took her prescribed lorazepam to see if that would help. History of Present Illness HPI narrative: This patient is a 64-year-old female with a history of hypertension, hyperlipidemia, fatty liver, GERD, and obesity presenting to the emergency department for evaluation with concern for high blood pressure, headaches, and chest heaviness. She states that she has been feeling bad for the last week, having frequent headaches and not feeling like herself. She had been off of her blood pressure medication, but just restarted it yesterday. She notes her blood pressure has been very very very high and it went up despite starting her blood pressure medication again today. She took her home lorazepam to see if that would help, but she still has significant headache. No vision changes, numbness, tingling, or other neurologic concerns. Related Data Home Medications ?Medication ?Instructions ?Recorded ?Confirmed lorazepam 0.5 mg tablet 0.5 mg PO DAILY 11/01/24 01/01/25 omeprazole 40 mg capsule,delayed 40 mg PO DAILY 11/01/24 01/01/25 release zolpidem 12.5 mg tablet,extended 12.5 mg PO HS 11/01/24 01/01/25 release,multiphase Previous Rx's ?Medication ?Instructions ?Recorded hydroxyzine HCl 50 mg tablet 50 mg PO DAILY #90 tabs 01/01/25 losartan 50 mg-hydrochlorothiazide 1 tab PO DAILY #90 tabs 01/01/25 12.5 mg tablet tizanidine 4 mg tablet 4 mg PO BID #180 tabs 01/01/25 valacyclovir 500 mg tablet 500 mg PO DAILY #90 tabs 01/01/25 Allergies Allergy/AdvReac Type Severity Reaction Status Date / Time promethazine (From PHENERGAN) Allergy Intermediate Verified 01/01/25 15:26 [facility] Disclaimer: The information contained in this section may have been updated after the patient was seen, as this information can be updated by other users. Medical History IFG (impaired fasting glucose) History of gastroesophageal reflux (GERD) Depression Anxiety Hyperlipidemia Hypertension Surgical History History of hysterectomy Social History Smoking Status: Never smoker alcohol intake: never counseling provided: none substance use type: denies use current occupational status: retired Travel in the last 8 weeks: None household members: children housing: house caffeine: No Have you lived/traveled outside US in past 30 days?: No Contact w/someone who lives/traveled outside US past 30 days?: No Exposure to someone with infectious disease in past 14 days?: No Do you have a fever (greater than 100.4 F or 38 C)?: No Have you tested positive for COVID-19: No Exposed to someone with COVID-19 in past 14 days?: No Do you have a sore throat?: No Do you have a cough?: No Do you have any weakness?: No Do you have any diarrhea?: No Are you experiencing any unusual bleeding?: No Do you have any muscle aches/pain?: No Do you have any abdominal pain?: No Are you experiencing loss of taste or smell?: No Other Medical History Have you received the Flu Vaccine for this season: No Have you received the Pneumonia Vaccine: No ROS Obtained: Yes All systems reviewed & no additional complaints except as documented Physical Exam General General appearance: alert and in no apparent distress Head Head exam: atraumatic and normocephalic Eye Eye exam: Present normal appearance, PERRL and EOMI ENT ENT exam: Present normal exam, normal oropharynx, mucous membranes moist and normal external ear exam Neck Neck exam: Present normal inspection, full ROM and trachea midline; Absent tenderness Chest Chest inspection: Present normal inspection and symmetric chest wall rise; Absent tenderness Respiratory Respiratory exam: Present normal lung sounds bilaterally; Absent respiratory distress, wheezes, stridor or accessory muscle use Cardiovascular Cardiovascular exam: Present regular rate and normal rhythm Abdominal Exam Abdominal exam: Present soft; Absent distention, tenderness or guarding Extremities Exam Extremities exam: Present normal inspection, full ROM and normal capillary refill; Absent tenderness or edema Back Exam Back exam: Present normal inspection and full ROM; Absent tenderness Neurological Exam Neurological exam: Present alert, oriented X3, CN II-XII intact and normal gait; Absent motor sensory deficit Psychiatric Psychiatric exam: Present normal affect and normal mood Skin Skin exam: Present warm and dry HEART Score HEART Score HEART Score assessment performed?: Yes History (anamnesis): Slightly suspicious ECG: Normal Age: 45-65 years Risk factors: 3 or more risk factors Troponin: </= normal limit HEART Score: 3 Critical Care Critical Care Time Critical Care Time: No Medical Decision Making Wai Inquiry Pt receiving controlled substance: No Vital Signs Vital Signs: 01/02/25 19:50 01/02/25 19:55 01/02/25 21:02 Temperature 98.6 F Temperature Source Tympanic Pulse Rate 66 67 Pulse Rate [Right] 89 Respiratory Rate 18 14 11 L Blood Pressure 122/53 L 122/53 L Blood Pressure [Right Arm] 197/101 H Blood Pressure Mean [Right Arm] 133 Blood Pressure Source [Right Arm] Automatic Cuff Blood Pressure Position Blood Pressure Position [Right Arm] Sitting 02 Sat by Pulse Oximetry 99 98 98 Oxygen Delivery Method Room Air Room Air Room Air 01/02/25 21:30 01/02/25 22:00 01/02/25 22:30 Temperature Temperature Source Pulse Rate 73 73 73 Pulse Rate [Right] Respiratory Rate 19 19 18 Blood Pressure 150/71 H 150/75 H 158/75 H Blood Pressure [Right Arm] Blood Pressure Mean [Right Arm] Blood Pressure Source [Right Arm] Blood Pressure Position Blood Pressure Position [Right Arm] 02 Sat by Pulse Oximetry 96 95 95 Oxygen Delivery Method Room Air Room Air Room Air 01/02/25 23:17 Temperature 98 F Temperature Source Pulse Rate 72 Pulse Rate [Right] Respiratory Rate 14 Blood Pressure 185/93 H Blood Pressure [Right Arm] Blood Pressure Mean [Right Arm] Blood Pressure Source [Right Arm] Blood Pressure Position Sitting Blood Pressure Position [Right Arm] 02 Sat by Pulse Oximetry Oxygen Delivery Method Room Air Lab Data Labs: Lab Results 01/02/25 20:04: WBC 9.5, RBC 4.70, Hgb 13.5, Hct 41.9, MCV 89.1, MCH 28.7, MCHC 32.2, RDW 13.1, Plt Count 354, MPV 9.3, Neut % (Auto) 45.5, Lymph % (Auto) 42.3, Summers % (Auto) 6.5, Eos % (Auto) 3.9, Baso % (Auto) 0.7, Neut # (Auto) 4.3, Lymph # (Auto) 4.0, Summers # (Auto) 0.6, Eos # (Auto) 0.4, Baso # (Auto) 0.1, Sodium 141, Potassium 3.6, Chloride 105, Carbon Dioxide 25, Anion Gap 14.6, BUN 10, Creatinine 0.60, Estimated Creat Clear 74, Estimated GFR 101, Est GFR ( Amer) 123, Glucose 93, Calcium 10.2, Total Bilirubin 0.8, AST 111 H D, ALT 94 H, Alkaline Phosphatase 90, Troponin I < 0.01, Total Protein 8.3 H, Albumin 5.0, G lobulin 3.3 H, Albumin/Globulin Ratio 1.5, Triglycerides 183 H, Cholesterol 284 H, LDL Cholesterol Direct 156.71 H, VLDL Cholesterol 37, HDL Cholesterol 80 H, C holesterol/HDL Ratio 3.6 H, Serum HCG, Qual Negative 01/02/25 23:03: Troponin I < 0.01 01/02/25 20:04 01/02/25 20:04 Response Orders (Tests/Meds): ED MEDICATIONS Discontinued Medications Generic Name Dose Route Start Last Admin Trade Name Alexander PRN Reason Stop Dose Admin Acetaminophen 1,000 mg 01/02/25 21:07 01/02/25 21:12 Acetaminophen 1,000mg/100ml Vial IV 01/02/25 21:08 1,000 mg ONCE ONE Administration Diphenhydramine HCl 25 mg 01/02/25 21:08 01/02/25 21:17 Diphenhydramine 50mg/Ml Vial IV 01/02/25 21:09 25 mg ONCE ONE Administration Lactated Ringer's 1,000 mls @ 999 mls/hr 01/02/25 21:07 01/02/25 21:13 Lactated Ringer's 1000 Ml Bag IV 01/02/25 22:07 999 mls/hr .Q1H1M ONE Administration Magnesium Sulfate 2 gm in 50 mls @ 50 mls/hr 01/02/25 21:07 01/02/25 21:13 Magnesium Sulfate 2gm/50ml Premix IV 01/02/25 22:06 50 mls/hr ONCE ONE Administration Ketorolac Tromethamine 15 mg 01/02/25 21:07 01/02/25 21:13 Ketorolac 30mg/Ml Vial IV 01/02/25 21:08 15 mg ONCE ONE Administration Metoclopramide HCl 5 mg 01/02/25 21:07 01/02/25 21:12 Metoclopramide Hcl 10mg/2ml Vial IVP 01/02/25 21:08 5 mg ONCE ONE Administration ORDERS Category Date Time Status CT head/brain wo con Stat Cat Scan 01/02/25 21:07 Completed XR chest 2V Stat Exams 01/02/25 19:56 Completed Complete Blood Count Auto Diff Stat Lab 01/02/25 20:04 Completed Comprehensive Metabolic Panel Stat Lab 01/02/25 20:04 Completed HCG Qualitative, Serum Stat Lab 01/02/25 20:04 Completed Lipid Panel Stat Lab 01/02/25 20:04 Completed Troponin I Q3H Lab 01/02/25 23:03 Completed Troponin I Stat Lab 01/02/25 19:56 Completed ECG Data Tracing #1: ECG Narrative: Normal sinus rhythm with a ventricular of [address] changes without acute STEMI. Normal intervals ECG initial impression date: 01/02/25 ECG initial impression time: 20:20 MDM Narrative Medical Decision Narrative: In summary, this patient is a 64-year-old female presenting to the Emergency Department for evaluation of headache, high blood pressure. Differential diagnoses considered include but are not limited to hypertensive urgency, hypertensive emergency, migraine, intracranial hemorrhage, intracranial mass. Ruling out the most morbid conditions drove assessment. It should be noted patient's history includes hypertension, obesity, hyperlipidemia, anxiety, GERD which are not at goal therapy. This complicates all aspects of care by increasing patient's risk for morbidity. I reviewed patient's past medical records and noted PCP evaluation to evaluate her and establish care 01/01/2025 with initiation of blood pressure medication. On exam, the patient is lying in bed in no acute distress with no focal neurologic deficits. Vitals are normal on cardiac telemetry, including blood pressure which was 120s systolic on my initial assessment. I did create up to 150s on cardiac telemetry monitoring, but did not go significantly higher. Workup included CBC, CMP, troponin, CT head without contrast, chest x-ray, EKG. I independently interpreted x-ray and CT scan prior to the radiologist read and noted no obvious consolidation in the chest, no pneumothorax, CT head does not demonstrate any intracranial hemorrhage or large space-occupying lesion. Please see their read for final interpretation. Labs were obtained that demonstrated reassuring CBC and chemistry with negative troponins x 2. On reassessment, patient had good improvement after administration of migraine cocktail consisting of a bolus of IV fluid, IV magnesium, IV acetaminophen, Toradol, Reglan, Benadryl. She is feeling better overall. I feel that she is appropriate for discharge with close follow-up with primary care for further evaluation and management of her blood pressure on an outpatient basis. Advised that she keep a log and gave her reassurance return precautions. She was discharged after all questions were answered..
[2025-01-02] MEDS: ACETAMINOPHEN 1,000MG/100ML VIAL 1000 MG IV (21:12)
[2025-01-02] MEDS: METOCLOPRAMIDE HCL 10MG/2ML VIAL 5 MG IVP (21:12)
[2025-01-02] MEDS: KETOROLAC 30MG/ML VIAL 15 MG IV (21:13)
[2025-01-02] MEDS: MAGNESIUM SULFATE IN WATER 2 GM/50 ML PIGGYBACK IV (21:13)
[2025-01-02] MEDS: LACTATED RINGERS 1000ML 1,000 ML 999 ML IV (21:13)
[2025-01-02] MEDS: diphenhydrAMINE 50MG/ML VIAL 25 MG IV (21:17)
--- NOTE | 2025-01-02 21:23 | PC.NURSE ---
pt taken to ct scan at this time.
--- NOTE | 2025-01-02 22:55 | PC.NURSE ---
provider at the bedside.
[2025-01-02 23:32] LABS: Troponin I < 0.01 ng/ml (0.00-0.034)
== END 2025-01-02 23:18 | disposition home or self-care (01) ==
PROVIDERS: Emergency Provider Emergency Medicine; PCP Nurse Practitioner
DX: R74.01 Elevation of levels of liver transaminase levels (principal); R51.9 Headache, unspecified; I10 Essential (primary) hypertension; R07.89 Other chest pain; R42 Dizziness and giddiness
CPT/HCPCS: 70450; 71046; 80053; 80061; 84484; 84703; 85025; 93005; 96361; 96365; 96374; 96375; 99284; J0131; J1200; J1885; J2765; J3475; J7120

== ENCOUNTER 2025-01-09 09:52 | Outpatient (CLI) | payer OTHER, SELFPAY ==
[2025-01-09 15:21] LABS: Coronavirus 19, PCR Not Detected (NotDetected); Influenza A, PCR Not Detected (NotDetected); Influenza B, PCR Not Detected (NotDetected)
== END 2025-01-09 23:59 | disposition home or self-care (01) ==
LOC: LAB.DROPOF 01-10 16:19
PROVIDERS: PCP Student in an Organized Health Care Education/Training Program; Visit Provider Student in an Organized Health Care Education/Training Program
DX: R05.9 Cough, unspecified (principal); R68.89 Other general symptoms and signs; B34.9 Viral infection, unspecified
CPT/HCPCS: 87636

== ENCOUNTER 2025-01-13 13:38 | Outpatient (CLI) | payer OTHER, SELFPAY ==
[2025-01-13 21:36] LABS: Basophils # 0.1 K/mm3 (0-0.2); Basophils % 0.6 % (0.1-2.0); Eosinophils # 0.3 K/mm3 (0.0-0.4); Eosinophils % 2.8 % (0.1-12.0); Hematocrit 42.3 % (37.0-47.0); Hemoglobin 13.2 g/dL (12.2-16.2); Lymphocytes % 39.9 % (10-50); Mean Corpuscular HGB Conc 31.2 g/dL (31.8-35.4); Mean Corpuscular Hemoglobin 28.6 pg (27.0-31.2); Mean Corpuscular Volume 91.6 fl (81-99); Mean Platelet Volume 10.8 fl (7.4-10.4); Monocytes # 0.7 K/mm3 (0.1-1.0); Monocytes % 6.5 % (1.7-9.3); Neutrophils # 4.9 K/mm3 (1.8-7.8); Neutrophils % 49.3 % (37.0-80.0); Platelet Count 442 K/mm3 (142-424); Red Blood Count 4.62 M/mm3 (4.20-5.40); Red Cell Distribution Width 13.3 % (11.5-17.5)
[2025-01-13 23:06] LABS: Alanine Aminotransferase 102 U/L (12-78); Albumin Level 4.9 g/dl (3.5-5.0); Alkaline Phosphatase 95 U/L (38-126); Anion Gap 12.9 mEq/L (5-15); Aspartate Amino Transferase 72 U/L (14-36); Bilirubin,Total 0.3 mg/dl (0.2-1.3); Blood Urea Nitrogen 13 mg/dl (7-17); Calcium 10.2 mg/dl (8.4-10.2); Carbon Dioxide 26 mmol/L (22.0-30.0); Chloride 105 mmol/L (98-107); Estimated Glomerular Filt Rate 85 ml/min (>60); GFR (African American) 103 ML/MIN (>60); Globulin 2.4 g/dL (1.3-3.2); Glucose 97 mg/dl (74-100); Potassium 3.9 mmoL/L (3.5-5.1); Sodium 140 mmol/L (136-145); Total Protein,Serum 7.3 g/dl (6.3-8.2)
[2025-01-15 05:12] LABS: HBsAg Screen Negative (Negative); HCV Ab Non Reactive (Non Reactive); Hep A Ab, IGM Negative (Negative); Hep B Core Ab, IgM Negative (Negative)
== END 2025-01-13 23:59 | disposition home or self-care (01) ==
LOC: LAB.DROPOF 01-16 09:25
PROVIDERS: PCP Nurse Practitioner; Visit Provider Nurse Practitioner
DX: R74.01 Elevation of levels of liver transaminase levels (principal); J06.9 Acute upper respiratory infection, unspecified
CPT/HCPCS: 80053; 80074; 85025; 86803

== ENCOUNTER 2025-01-20 10:53 | Outpatient (CLI) | payer OTHER, SELFPAY ==
--- NOTE | 2025-01-20 10:54 | US_ITS ---
FINAL REPORT CLINICAL HISTORY: transaminitis COMPARISON: None FINDINGS: Sonographic images of the right upper quadrant were obtained. The pancreas is partially obscured. There is fatty infiltration of the liver. There is a hypoechoic area in the periphery of the right lobe of the liver measuring 3.4 x 2.7 cm, which is indeterminate. The gallbladder is absent. There is no evidence of biliary ductal dilatation.The common duct measures 4mm. Limited images of the right kidney are unremarkable. IMPRESSION: Indeterminate hypoechoic area in the periphery of the right lobe of the liver. Recommend pre and post CT scan to better characterize. Reviewed, Interpreted and Dictated by Bladimir Brunson MD Transcribed by Diana Escamilla Authenticated and [facility]
== END 2025-01-20 23:59 | disposition home or self-care (01) ==
LOC: RAD 10:54
PROVIDERS: PCP Nurse Practitioner; Visit Provider Nurse Practitioner
DX: R74.01 Elevation of levels of liver transaminase levels (principal)
CPT/HCPCS: 76705

== ENCOUNTER 2025-02-11 15:29 | Outpatient (CLI) | payer OTHER, SELFPAY ==
[2025-02-11 18:46] LABS: Basophils # 0.1 K/mm3 (0-0.2); Basophils % 0.6 % (0.1-2.0); Eosinophils # 0.4 K/mm3 (0.0-0.4); Eosinophils % 3.4 % (0.1-12.0); Hematocrit 38.1 % (37.0-47.0); Hemoglobin 12.3 g/dL (12.2-16.2); Lymphocytes # 3.9 K/mm3 (0.7-4.5); Lymphocytes % 34.3 % (10-50); Mean Corpuscular HGB Conc 32.3 g/dL (31.8-35.4); Mean Corpuscular Hemoglobin 28.5 pg (27.0-31.2); Mean Corpuscular Volume 88.2 fl (81-99); Mean Platelet Volume 10.2 fl (7.4-10.4); Monocytes # 0.7 K/mm3 (0.1-1.0); Monocytes % 6.5 % (1.7-9.3); Neutrophils # 6.1 K/mm3 (1.8-7.8); Neutrophils % 54.1 % (37.0-80.0); Platelet Count 391 K/mm3 (142-424); Red Blood Count 4.32 M/mm3 (4.20-5.40); Red Cell Distribution Width 13.4 % (11.5-17.5); White Blood Count 11.2 K/mm3 (4.8-10.8)
[2025-02-11 20:20] LABS: Albumin Level 4.9 g/dl (3.5-5.0); Chloride 102 mmol/L (98-107); Potassium 3.6 mmoL/L (3.5-5.1); Sodium 138 mmol/L (136-145)
[2025-02-11 20:23] LABS: Alanine Aminotransferase 74 U/L (12-78); Albumin/Globulin Ratio 1.8 (1.1-1.8); Alkaline Phosphatase 100 U/L (38-126); Anion Gap 14.6 mEq/L (5-15); Aspartate Amino Transferase 58 U/L (14-36); Bilirubin,Total 0.5 mg/dl (0.2-1.3); Blood Urea Nitrogen 16 mg/dl (7-17); Carbon Dioxide 25 mmol/L (22.0-30.0); Estimated Glomerular Filt Rate 63 ml/min (>60); GFR (African American) 77 ML/MIN (>60); Globulin 2.8 g/dL (1.3-3.2); Total Protein,Serum 7.7 g/dl (6.3-8.2)
[2025-02-11 20:24] LABS: Calcium 9.7 mg/dl (8.4-10.2); Glucose 82 mg/dl (74-100)
[2025-02-11 20:37] LABS: NT Pro Brain Natriuretic Pep. < 20.0 pg/mL (0-125)
== END 2025-02-11 23:59 | disposition home or self-care (01) ==
LOC: LAB.DROPOF 02-12 14:02
PROVIDERS: PCP Nurse Practitioner; Visit Provider Nurse Practitioner
DX: R60.0 Localized edema (principal)
CPT/HCPCS: 80053; 83880; 85025

== ENCOUNTER 2025-02-27 09:41 | Outpatient (CLI) | payer OTHER, SELFPAY ==
[2025-02-27] MEDS: SODIUM CHLORIDE 0.9% 10ML SYR (RAD ONLY) 10 ML IV (09:50)
[2025-02-27] MEDS: IOPAMIDOL-370 (76%);100ML BOTTLE 75 ML IV (09:50)
--- NOTE | 2025-02-27 10:00 | CT_ITS ---
FINAL REPORT TECHNIQUE: Pre and postcontrast axial images of the abdomen were obtained. This study was performed with techniques to keep radiation doses as low as reasonably achievable (ALARA). Individualized dose reduction techniques using automated exposure control or adjustment of mA and/or kV according to the patient's size were employed. CLINICAL HISTORY: Abnormality of the liver on ultrasound COMPARISON: Ultrasound of the abdomen dated 01/20/2025 FINDINGS: CT ABDOMEN WITHOUT AND WITH CONTRAST Precontrast images demonstrate a peripherally calcified structure along the splenic artery measuring 1.9 x 1.7 cm. This is concerning for a splenic artery aneurysm. The gallbladder is surgically absent. Postcontrast images demonstrate moderate diffuse fatty infiltration of the liver. There is a 3.2 x 1.8 cm lesion in the posterior right lobe of the liver which demonstrates nodular peripheral enhancement. This is consistent with a hemangioma. On the delayed imaging there is infill of the lesion. The spleen, pancreas, adrenal glands, and kidneys are without acute abnormality. The appendix is unremarkable. IMPRESSION: Hemangioma corresponding to ultrasound abnormality. 1.9 cm splenic artery aneurysm. Surgical evaluation is recommended. Reviewed, Interpreted and Dictated by Bladimir Brunson MD Transcribed by Azeb Munoz Authenticated and [facility]
== END 2025-02-27 23:59 | disposition home or self-care (01) ==
LOC: RAD 09:42
PROVIDERS: PCP Nurse Practitioner; Visit Provider Nurse Practitioner
DX: D37.6 Neoplasm of uncertain behavior of liver, gallbladder and bile ducts (principal); R74.01 Elevation of levels of liver transaminase levels
CPT/HCPCS: 74170; Q9967

== ENCOUNTER 2025-06-19 14:30 | Outpatient (CLI) | payer OTHER, SELFPAY ==
[2025-06-19 20:25] LABS: Alanine Aminotransferase 45 U/L (12-78); Albumin Level 4.6 g/dl (3.5-5.0); Albumin/Globulin Ratio 1.9 (1.1-1.8); Alkaline Phosphatase 93 U/L (38-126); Anion Gap 11.0 mEq/L (5-15); Aspartate Amino Transferase 46 U/L (14-36); Bilirubin,Total 0.5 mg/dl (0.2-1.3); Blood Urea Nitrogen 9 mg/dl (7-17); Calcium 10.3 mg/dl (8.4-10.2); Carbon Dioxide 31 mmol/L (22.0-30.0); Chloride 101 mmol/L (98-107); Creatinine,Serum 0.50 mg/dl (0.52-1.04); Estimated Glomerular Filt Rate 125 ml/min (>60); GFR (African American) 151 ML/MIN (>60); Globulin 2.4 g/dL (1.3-3.2); Glucose 77 mg/dl (74-100); HDL Cholesterol 61 mg/dl (40-60); Potassium 4.0 mmoL/L (3.5-5.1); Sodium 139 mmol/L (136-145); Total Protein,Serum 7.0 g/dl (6.3-8.2); Triglycerides 210 mg/dl (30-150); Uric Acid 6.6 mg/dl (2.5-6.2)
[2025-06-19 20:28] LABS: Hematocrit 39.7 % (37.0-47.0); Hemoglobin 12.4 g/dL (12.2-16.2); Immature Granulocytes % 0.7 %; Mean Corpuscular HGB Conc 31.2 g/dL (31.8-35.4); Mean Corpuscular Hemoglobin 27.9 pg (27.0-31.2); Mean Corpuscular Volume 89.4 fl (81-99); Nucleated Red Blood Cells % 0 %; Platelet Count 287 K/mm3 (142-424); Red Blood Count 4.44 M/mm3 (4.20-5.40); Red Cell Distribution Width-SD 44.0 fL; White Blood Count 9.6 K/mm3 (4.8-10.8)
[2025-06-19 20:29] LABS: Hemoglobin A1C 5.6 % (4.0-6.0)
[2025-06-19 20:34] LABS: Cholesterol 357 mg/dl (140-200)
[2025-06-19 20:59] LABS: Thyroid Stimulating Hormone 2.65 uIU/mL (0.465-4.68)
--- OUTSIDE RECORDS SUMMARY | 2025-06-20 10:28 | XMS_ITS | Clinical Summary ---
Author Organization [facility] Address [address] [place] [address] Care Team Providers Care Paradi Operator Name Role Phone Melissa Hays MD Primary Care Provide r Unavailable Allergies Active Allergy Reactions Criticality Noted Date Comments Atorvastatin Other - please docum ent in the comment field High 02/12/2021 Elevated CK Promethazine Rash,Shortness of breath,Swelling,Unknown - Patient states they do not know rxn details High 08/12/2016 Medications allopurinol (Zyloprim) 100 MG tablet Take 100 mg by mouth 1 (one) time each day. 03/10/2023 Active amLODIPine (Norvasc) 5 MG tablet Take 5 mg by mouth 1 (one) time each day. 03/23/2023 Active aspirin 81 MG chewable tablet Chew 81 mg 1 (one) time each day. 03/10/2023 Active buPROPion SR (Wellbutrin SR) 150 MG 12 hr tablet TAKE 1 TABLET BY MOUTH EVERY MORNING AND 2 TABLETS EVERY EVENING. DO ALL THIS FOR 90 DAYS. 12/07/2022 Active Calcium Carb-Cholecalci ferol 600-10 MG-MCG tablet Take 1 tablet by mouth twice a day. 10/14/2022 Active cholecalciferol 10 MCG (400 UNIT) tablet Take 400 Units by mouth. Active cyanocobalamin (Vitamin B-12) 1000 MCG tablet Take 1,000 mcg by mouth 1 (one) time each day. 10/14/2022 Active docusate sodium (Colace) 100 MG capsule TAKE 1 CAPSULE BY MOUTH 2 TIMES DAILY. 04/06/2023 Active ergocalciferol (Vitamin D-2) 1.25 MG (46217 UT) capsule Take 50,000 Units by mouth every 7 (seven) days. 02/27/2023 Active ezetimibe (Zetia) 10 MG tablet Take 10 mg by mouth 1 (one) time each day. 03/10/2023 Active fenofibrate (Tricor) 145 MG tablet Take 145 mg by mouth 1 (one) time each day. 03/10/2023 Active hydroCHLOROthia zide (Microzide) 12.5 MG capsule TAKE 1 CAPSULE BY MOUTH DAILY. TAKE WITH LOSARTAN/HCT Z 03/10/2023 Active hydrOXYzine HCl (Atarax) 25 MG tablet Take 25 mg by mouth 1 (one) time each day. 04/06/2023 Active losartan-hydroC HLOROthiazide (Hyzaar) 100-25 MG tablet 03/13/2018 Active LORazepam (Ativan) 0.5 MG tablet Take 0.5 mg by mouth 1 (one) time each day if needed. 12/07/2022 Active metFORMIN (Glucophage) 500 MG tablet Take 500 mg by mouth 1 (one) time each day. 09/12/2022 Active omeprazole (PriLOSEC) [address] capsule Take 40 mg by mouth 1 (one) time each day. 03/10/2023 Active potassium chloride CR (Klor-Con M20) 20 MEQ ER tablet Take 20 mEq by mouth 1 (one) time each day. 02/27/2023 Active semaglutide (Rybelsus) 3 MG tablet Take 6 mg by mouth 1 (one) time each day. 12/07/2022 Active tiZANidine (Zanaflex) 4 MG tablet Take 4 mg by mouth 1 (one) time each day. 03/10/2023 Active valACYclovir (Valtrex) 500 MG tablet Take 500 mg by mouth 1 (one) time each day. 06/30/2017 Active zolpidem CR (Ambien CR) 12.5 MG ER tablet TAKE 1 TABLET BY MOUTH NIGHTLY NEEDED. 04/07/2023 Active Immunizations Immunization Administration Dates Next Due Influenza, Unspecified 09/26/2017 Pneumococcal Conjugate PCV 13 07/20/2017 Family History Medical History Relation Name Comments Conversions - Other Other 1 cerebral hemorrhage COPD Other 2 Relation Name Status Comments Other 1 Other 2 Social History Tobacco Use Types Packs/Day Years Used Date Smoking Tobacco: Never Smokeless Tobacco: Never Tobacco Cessation:Counseling Given: Not Answered Alcohol Use Standard Drinks/Week Comments No 0 (1 standard drink = 0.6 oz pur e alcohol) Comments Unknown Sex and Gender Information Value Date Recorded Sex Assigned at Not on file Legal Sex Female 6:09 PM EDT Gender Identity Not on file Sexual Orientation Not on file Last Filed Vital Signs Vital Sign Reading Time Taken Comments Blood Pressure 125/81 07/23/2018 10:53 AM EDT Pulse 76 07/23/2018 10:53 AM EDT Temperature 36.7 C (98.1 F) 07/23/2018 10:53 AM EDT Respiratory Rate 16 03/13/2018 11:50 AM EDT Oxygen Saturation - - Inhaled Oxygen Concentration - - Weight 83.5 kg (184 lb) 04/25/2023 10:49 AM EDT Height 160 cm (5' 3 ) 04/25/2023 10:49 AM EDT Body Mass Index 32.59 04/25/2023 10:49 AM EDT Plan of Treatment Health Maintenance Due Date Last Done Comments [facility]-Depression Screening 1962 [facility]-HIV Screening 1962 [facility]-Hepatitis C Screening 1962 [facility]-/Child/Adol SDOH Screenings 1962 [id number] Vaccine (#1) 1967 [facility]- SDOH Screenings 1980 [facility]-Adult SDOH Screenings 1980 [facility]-Pap Smear 1983 [facility]-Cervical Cancer Screening 1992 [facility]-HPV/Cotest 1992 CT Colonography 2007 Colonoscopy 2007 FIT-DNA 2007 FIT 2007 FOBT 2007 Sigmoidoscopy 2007 [facility]-Colorectal Cancer Screening 2007 [facility]Y-Zoster Vaccines (1 of 2) 2012 [facility]Y-Pneumococcal Vaccine: 50+ Years (2 of 2 - PPSV23) 07/20/2018 07/20/2017 [facility]Y-RSV Vaccine: 60+ Years or (1 - Risk 60-74 years 1-dose series) 2022 [facility]-Breast Cancer Screening 04/11/202503/15, 04/11/2023, 09/24/2020, Additional history exists [facility]-Influenza Vaccine (#1) 2025 12/04/2018, [facility]-DTaP,Tdap,and Td Vaccines (4 - Td or Tdap) 08/01/2031 08/01/2021, 01/26/2011, 10/13/2009 [facility]-Obesity Intervention Completed 04/25/2023 HPV Vaccines Aged Out No longer eligi ble based on patient's age to complete this topic [facility]Y-HIB Vaccines Aged Out No longer e ligible based on patient's age to complete this topic [facility]Y-Hepatitis A Vaccines Aged Out No longer eligible based on patient's age to complete this topic [facility]Y-IPV Vaccines Aged Out No longer e ligible based on patient's age to complete this topic [facility]Y-Rotavirus Vaccines Aged Out No lo nger eligible based on patient's age to complete this topic Insurance [employer]TER Care Teams Paradi Operator Relationship Specialty Start Date End Date Melissa Hays MD PCP - General 02/20/23
--- OUTSIDE RECORDS SUMMARY | 2025-06-20 10:28 | XMS_ITS | Clinical Summary ---
Author Organization [facility] Address [facility] [place] [address] Care Team Providers Care Life Underwriter Name Role Phone Rde Wilder MD Primary Care Provider + [phone] Source Comments This information has been disclosed to you from confidential records protectedfrom disclosure by state law. You shall make no further disclosure of thisinformation without the specific, written, and informed release of theindividual to whom it pertains, or as otherwise permitted by law. A generalauthorization for the release of medical or other information is not sufficientfor the purposes of therelease of HIV test results or diagnoses. [id number] Health Active Problems Problem Noted Date Diagnosed Date Encounter for routine gynecological examination 04/04/2008 Overview (08/12/2015): ICD-10 Transition Social History Tobacco Use Types Packs/Day Years Used Date Smoking Tobacco: Never Assessed Comments Unknown Sex and Gender Information Value Date Recorded Sex Assigned at Not on file Legal Sex Female 7:54 PM EST Gender Identity Not on file Sexual Orientation Not on file Plan of Treatment Not on file Care Teams Life Underwriter Relationship Specialty Start Date End Date Red Wilder MD [address] [place] [id number] PCP - General 05/23/08
--- OUTSIDE RECORDS SUMMARY | 2025-06-20 10:28 | XMS_ITS | Clinical Summary ---
Author Organization [facility] Address [address] [place] [id number] Care Team Providers Care Rn Lpn Lvn Name Role Phone Melissa Moya Primary Care Provider Allergies Active Allergy Reactions Criticality Noted Date Comments Promethazine 06/15/2017 Medications valACYclovir (VALTREX) 500 mg tablet Take 500 mg by mouth every 12 hours. Active simvastatin (ZOCOR) 40 mg tablet Take 40 mg by mouth nightly at bedtime. Active tiZANidine (ZANAFLEX) 4 mg tablet Take 4 mg by mouth every 6 hours as needed. Active traZODone (DESYREL) 100 mg tablet Take 100 mg by mouth nightly at bedtime. Active aspirin 81 mg tablet Take 81 mg by mouth daily. Active diazePAM (VALIUM) 2 mg tablet Take 2 mg by mouth every 6 hours as needed for Anxiety. Active omeprazole (PRILOSEC) 20 mg capsule Take 20 mg by mouth daily. Active DULoxetine (CYMBALTA) 60 mg Capsule, Delayed Release(E.C.) Take 60 mg by mouth daily. Active cholecalciferol (VITAMIN D-3) 400 unit Tablet Take 400 Units by mouth daily. Active gabapentin (NEURONTIN) 300 mg capsule Take 300 mg by mouth 3 times daily. Active losartan-hydroch lorothiazide (HYZAAR) 100-25 mg Tablet Take 1 Tab by mouth daily. Active Omeprazole Magnesium 20 mg Capsule, Delayed Release(E.C.) Take 20 mg by mouth. 0 Active divalproex (DEPAKOTE) 250 mg Tablet, Delayed Release (E.C.) Take 1 pill daily for 7 days then increase to 1 pill twice daily for 7 days then 1 pil in am and 2 of a night for 7days then 2 pills bid 0 Active Zolpidem 12.5 mg Tablet, Multiphasic Release Take 12.5 mg by mouth. 0 Active Active Problems No known active problems Family History Medical History Relation Name Comments Hypertension Father Hypertension Mother Relation Name Status Comments Father Mother Social History Tobacco Use Types Packs/Day Years Used Date Smoking Tobacco: Never Smokeless Tobacco: Never Alcohol Use Standard Drinks/Week Comments Yes 0 (1 standard drink = 0.6 oz pur e alcohol) occassionally Comments No Sex and Gender Information Value Date Recorded Sex Assigned at Not on file Legal Sex Female 4:33 PM EDT Gender Identity Not on file Sexual Orientation Not on file Last Filed Vital Signs Vital Sign Reading Time Taken Comments Blood Pressure 122/72 06/15/2017 9:17 PM EDT Pulse 103 06/15/2017 9:35 PM EDT Temperature 37.4 C (99.3 F) 06/15/2017 9:35 PM EDT Respiratory Rate 19 06/15/2017 9:35 PM EDT Oxygen Saturation 95% 06/15/2017 9:35 PM EDT Inhaled Oxygen Concentration - - Weight 84.4 kg (186 lb) 10/20/2020 3:01 PM EST Height 157.5 cm (5' 2 ) 10/20/2020 3:01 PM EST Body Mass Index 34.02 10/20/2020 3:01 PM EST Plan of Treatment Health Maintenance Due Date Last Done Comments Cologuard 1962 Colonoscopy 1962 Colorectal Cancer Screening 1962 FIT 1962 Lipid Screening 1980 Cervical Cancer Screening 1983 Hepatitis C Virus (HCV) Screening 1983 Pneumococcal Vaccine: 50+ Ye ars (1 of 1 - PCV) 2012 Zoster-RZV(Shingrix) (1 of 2) 2012 Tetanus Vaccination (Every 10 Years) 01/26/202101/11, 10/13/2009 Breast Cancer Screening 10/17/2022 10/17/20 20, 10/17/2020, 09/24/2020 COVID-19 Vaccine (2023-25 season) 2024 Depression Screening 11/13/2024 Influenza Vaccination (#1) 2025 RSV Vaccines (1 - 1-dose 75+ series) 2037 Insurance ANTHEM ANTHEM Care Teams Rn Lpn Lvn Relationship Specialty Start Date End Date Melissa [place] [address] [place] [address] PCP - General Family Medicine 10/20/20
[2025-06-21 09:25] LABS: RA Latex Turbid. 10.0 IU/mL (<14.0)
[2025-06-24 09:13] LABS: Antinuclear Antibodies, IFA Negative (.)
== END 2025-06-19 23:59 | disposition home or self-care (01) ==
LOC: LAB.DROPOF 06-20 10:23
PROVIDERS: PCP Nurse Practitioner; Visit Provider Nurse Practitioner
DX: E78.5 Hyperlipidemia, unspecified (principal); I10 Essential (primary) hypertension; R73.01 Impaired fasting glucose; R07.89 Other chest pain; M25.50 Pain in unspecified joint
CPT/HCPCS: 80053; 80061; 83036; 84443; 84550; 85025; 85651; 86038; 86225; 86235; 86431

== ENCOUNTER 2025-07-10 06:20 | Outpatient (CLI) | payer OTHER, SELFPAY ==
--- NOTE | 2025-07-10 | CA_ITS ---
APPROVED REPORT Exam: Pharmacologic Technologist: Shae Pineda Ht: 5 ft 4 in Wt: 184 lbs BSA: 1.89 m2 HR: 67 bpm BP: 143/79 mmHg Rhythm: SR with baseline STT abnormalities Medical History Cardiac Risk Factors: HTN, Hyperlipidemia Stress Test Details HR Resting HR: 67 bpm Max Heart Rate (APMHR): 158 bpm Target HR (85% APMHR): 134 bpm Recovery HR: 79 bpm BP Resting BP: 143.0/79.0 mmHg Recovery BP: 94.0/55.0 mmHg ECG Resting ECG: SR with baseline STT abnormalities Stress ECG Conclusion During lexiscan pt experinced nausea, dyspnea, chest tightness and hypotension. No arrhythmias noted. Less than 0.5mm upsloping ST segment changes. CONCLUSION Nondiagnostic ECG lexiscan. Electronically signed by : Nieves Bee MD 07/11/2025 00:46:24
--- OUTSIDE RECORDS SUMMARY | 2025-07-10 06:23 | XMS_ITS | Clinical Summary ---
Author Organization [facility] Address [facility] [place] [address] Care Team Providers Care Bag Checker Name Role Phone Red Wilder MD Primary Care Provider + [phone] Source Comments This information has been disclosed [...] therelease of HIV test results or diagnoses. [id number] Health Active Problems Problem Noted [...] of Treatment Not on file Care Teams Bag Checker Relationship Specialty Start Date End Date Red Wilder MD [address] [place] [id number] PCP - General 05/23/08
--- OUTSIDE RECORDS SUMMARY | 2025-07-10 06:23 | XMS_ITS | Clinical Summary ---
Author Organization [facility] Address [address] [place] [address] Care Team Providers Care Spanish Professor Name Role Phone Melissa Moya Primary Care [...] Colorectal Cancer Screening 1962 FIT 1962 Lipid Monitoring 1979 Cervical Cancer Screening 1983 Hepatitis C Virus [...] series) 2037 Insurance ANTHEM ANTHEM Care Teams Spanish Professor Relationship Specialty Start Date End Date Melissa [place] [address] [place] [address] PCP - General Family Medicine 10/20/20
--- OUTSIDE RECORDS SUMMARY | 2025-07-10 06:23 | XMS_ITS | Clinical Summary ---
Author Organization [facility] Address [address] [place] [address] Care Team Providers Care Position Classifier Name Role Phone Melissa Hays MD Primary [...] 04/06/2023 Active ergocalciferol (Vitamin D-2) 1.25 MG (78762 UT) capsule Take 50,000 Units by mouth [...] C Screening 1962 [facility]-/Child/Adol SDOH Screenings 1962 [id number] Vaccine (#1) 1967 [facility]- SDOH Screenings 1980 [...] complete this topic Insurance AMB[employer]TER Care Teams Position Classifier Relationship Specialty Start Date End Date Melissa Hays MD PCP - General 02/20/23
--- NOTE | 2025-07-10 06:30 | NM_ITS ---
APPROVED REPORT Exam: Nuclear Stress Test Indication: htn, diabetes, hyperlipidemia, c.p., sob, palpitations, fatigue Patient Location: Outpatient Stress Tech: Kimberley Blount DE Tech:VAL Cervantes RT(R)(N) Ht: 5 ft 2 in Wt: 185 lbs Bra Size: 48c HR: 65 bpm BP: 143/79 mmHg BSA: 1.85 m2 TID: 1.00 BMI: 33.8 History: htn, diabetes, hyperlipidemia, c.p., sob, palpitations, fatigue Procedure: Patient received 0.4 mg of intravenous Lexiscan, resting heart rate 65 bpm, resting blood pressure 143/79 mmHg, with Lexiscan maximum heart rate achieved was 86 bpm which is % of the maximum predicted heart rate and blood pressure was 94/55 mmHg. With Lexiscan, patient denied any complaint of chest pain. Cardiac Stress and Resting SPECT Images: Cardiac Stress and Resting SPECT images were obtained using technetium 99m Myoview 30.0 mCi stress and 10.26 mCi at rest. Resting and stress imaging in supine and prone positions demonstrate no evidence of fixed or reversible perfusion defects. Gated imaging demonstrates normal global and regional LV systolic function. LVEF is calculated 63%. Conclusion: No evidence of fixed or reversible perfusion defects. Gated imaging demonstrates normal global and regional LV systolic function. LVEF is calculated 63%. Electronically signed by : Nieves Bee MD 07/15/2025 12:58:59
[2025-07-10] MEDS: SODIUM CHLORIDE 0.9% 10ML SYR (RAD ONLY) 10 ML IV ×2 (09:11)
[2025-07-10] MEDS: ISOTOPE MYOVIEW (PER STUDY) 1 DOSE IV (09:11)
== END 2025-07-10 23:59 | disposition home or self-care (01) ==
LOC: RAD 06:21
PROVIDERS: PCP Nurse Practitioner; Visit Provider Physician Assistant
DX: I72.8 Aneurysm of other specified arteries (principal); R07.9 Chest pain, unspecified; I10 Essential (primary) hypertension; E11.9 Type 2 diabetes mellitus without complications; E78.5 Hyperlipidemia, unspecified; R06.02 Shortness of breath; R00.2 Palpitations; R53.83 Other fatigue
CPT/HCPCS: 78452; 93017; 93018; A9502; J2785

== ENCOUNTER 2025-07-27 13:58 | Outpatient (CLI) | payer OTHER, SELFPAY ==
--- OUTSIDE RECORDS SUMMARY | 2025-07-28 14:02 | XMS_ITS | Clinical Summary ---
Author Organization [facility] Address [address] [place] [address] Care Team Providers Care Onsite Health Coach Name Role Phone Melissa Hays MD Primary [...] 04/06/2023 Active ergocalciferol (Vitamin D-2) 1.25 MG (60148 UT) capsule Take 50,000 Units by mouth [...] C Screening 1962 [facility]-/Child/Adol SDOH Screenings 1962 [id number] Vaccine (#1) 1967 [facility]- SDOH Screenings 1980 [facility]-Adult SDOH Screenings 1980 [facility]-Pap Smear 1983 [facility]-Cervical Cancer Screening 1992 [facility]-HPV/Cotest 1992 CT Colonography 2007 Colonoscopy 2007 FIT-DNA 2007 FIT 2007 FOBT 2007 Sigmoidoscopy 2007 [facility]-Colorectal Cancer Screening 2007 [facility]Y-Zoster Vaccines (1 of 2) 2012 [facility]Y-Pneumococcal Vaccine: 50+ Years (2 of 2 - PCV20 or PCV21) 07/20/2018 07/20/2017 [facility]Y-RSV Vaccine: 60+ Years or [...] complete this topic Insurance AMBETTER Care Teams Onsite Health Coach Relationship Specialty Start Date End Date Melissa Hays MD PCP - General 02/20/23
--- OUTSIDE RECORDS SUMMARY | 2025-07-28 14:02 | XMS_ITS | Clinical Summary ---
Author Organization [facility] Address [address] [place] [address] Care Team Providers Care Chief Controller Center Name Role Phone Melissa Moya Primary Care [...] Years) 01/26/202101/11, 10/13/2009 Breast Cancer Screening 10/17/2022 10/17/20, 10/17/2020, 09/24/2020 Depression Screening 11/13/2024 COVID-19 Vaccine ( - 2023-25 season) 2025 Influenza Vaccination (#1) 2025 RSV Vaccines (1 - 1-dose 75+ series) 2037 Insurance ANTHEM ANTHEM Care Teams Chief Controller Center Relationship Specialty Start Date End Date Melissa [place] [address] [place] [address] PCP - General Family Medicine 10/20/20
--- OUTSIDE RECORDS SUMMARY | 2025-07-28 14:02 | XMS_ITS | Clinical Summary ---
Author Organization [facility] Address [facility] [place] [address] Care Team Providers Care Maintenance And Custodian Supervisor Name Role Phone Red Wilder MD Primary Care Provider + [phone] Source Comments This information has been disclosed [...] therelease of HIV test results or diagnoses. [id number] Health Active Problems Problem Noted [...] of Treatment Not on file Care Teams Maintenance And Custodian Supervisor Relationship Specialty Start Date End Date Red Wilder MD [address] [place] [id number] PCP - General 05/23/08
== END 2025-07-27 23:59 | disposition home or self-care (01) ==
LOC: LAB.DROPOF 07-28 13:59
PROVIDERS: PCP Nurse Practitioner; Visit Provider Nurse Practitioner
DX: R10.2 Pelvic and perineal pain (principal)
CPT/HCPCS: 87086

== ENCOUNTER 2025-08-06 18:25 | Emergency (ER) | payer OTHER, SELFPAY ==
[2025-08-06 18:29] VITALS: BP 169/77; PULSE 89; RESP 18; TEMP 36.8; O2SAT 98; BMI 34.4
[2025-08-06 18:41] LABS: Hematocrit 36.9 % (37.0-47.0); Hemoglobin 12.0 g/dL (12.2-16.2); Immature Granulocytes % 0.4 %; Mean Corpuscular HGB Conc 32.5 g/dL (31.8-35.4); Mean Corpuscular Hemoglobin 29.2 pg (27.0-31.2); Mean Corpuscular Volume 89.8 fl (81-99); Nucleated Red Blood Cells % 0 %; Platelet Count 286 K/mm3 (142-424); Red Blood Count 4.11 M/mm3 (4.20-5.40); Red Cell Distribution Width-SD 45.1 fL; White Blood Count 9.4 K/mm3 (4.8-10.8)
--- OUTSIDE RECORDS SUMMARY | 2025-08-06 18:44 | XMS_ITS | Clinical Summary ---
Author Organization [facility] Address [facility] [place] [address] Care Team Providers Care Surgical Clinical Reviewer Name Role Phone Red Wilder MD Primary Care Provider + [phone] Source Comments This information has been disclosed [...] therelease of HIV test results or diagnoses. [id number] Health Active Problems Problem Noted Date Diagnosed [...] of Treatment Not on file Care Teams Surgical Clinical Reviewer Relationship Specialty Start Date End Date Red Wilder MD [address] [place] [id number] PCP - General 05/23/08
--- OUTSIDE RECORDS SUMMARY | 2025-08-06 18:44 | XMS_ITS | Clinical Summary ---
Author Organization [facility] Address [address] [place] [address] Care Team Providers Care Senior Ios Software Engineer Name Role Phone Melissa Hays MD Primary [...] 04/06/2023 Active ergocalciferol (Vitamin D-2) 1.25 MG (18268 UT) capsule Take 50,000 Units by mouth [...] C Screening 1962 [facility]-/Child/Adol SDOH Screenings 1962 [id number] Vaccine (#1) 1967 [facility]- SDOH Screenings 1980 [...] complete this topic Insurance AMBETTER Care Teams Senior Ios Software Engineer Relationship Specialty Start Date End Date Melissa Hays MD PCP - General 02/20/23
[2025-08-06 18:45] LABS: Microscopic, Urine URINE MICROSCOPIC (MICROSCOPIC)
[2025-08-06 18:51] LABS: Bilirubin,Urine Negative (Negative); Color,Urine YELLOW (Yellow); Glucose,Urine (UA) Negative (Negative); Ketones,Urine Negative (Negative); Leukocyte Esterase,Urine 1+ (Negative); PH,Urine 6.0 (5.0-8.5); Protein,Urine Negative (Negative); Specific Gravity, Urine <= 1.005 (1.005-1.030); Urobilinogen,Urine 0.2 EU/dl (0.2)
[2025-08-06 18:57] LABS: Alanine Aminotransferase 91 U/L (12-78); Albumin Level 4.6 g/dl (3.5-5.0); Albumin/Globulin Ratio 1.6 (1.1-1.8); Alkaline Phosphatase 91 U/L (38-126); Anion Gap 13.5 mEq/L (5-15); Aspartate Amino Transferase 60 U/L (14-36); Bilirubin,Total 0.6 mg/dl (0.2-1.3); Blood Urea Nitrogen 7 mg/dl (7-17); Calcium 9.7 mg/dl (8.4-10.2); Carbon Dioxide 24 mmol/L (22.0-30.0); Chloride 105 mmol/L (98-107); Creatinine Clearance Estimated 78 mL/min (50-200); Creatinine,Serum 0.70 mg/dl (0.52-1.04); Estimated Glomerular Filt Rate 85 ml/min (>60); GFR (African American) 102 ML/MIN (>60); Globulin 2.8 g/dL (1.3-3.2); Glucose 95 mg/dl (74-100); Lipase 153 U/L (23-300); Potassium 3.5 mmoL/L (3.5-5.1); Sodium 139 mmol/L (136-145); Total Protein,Serum 7.4 g/dl (6.3-8.2)
[2025-08-06 19:09] LABS: Troponin I < 0.01 ng/ml (0.00-0.034)
--- NOTE | 2025-08-06 19:39 | ED_ITS ---
<Statement entered by Julienne Baldwin DO - 08/07/25 16:29> I was consulted by the CARRIE, and we discussed the complexity of problems being addressed. I approve the treatment and management plan for this patient's care in the emergency department, thus performing a substantial portion of the medical decision making. Julienne Baldwin DO Discharge Plan Disposition Patient Disposition: Home, Self-Care Condition: Good Prescriptions Prescriptions: No Action hydroxyzine HCl 50 mg tablet 50 mg PO DAILY Qty: 90 1RF valacyclovir 500 mg tablet 500 mg PO DAILY Qty: 90 1RF allopurinol 100 mg tablet 50 mg PO DAILY Patient Comments: TAKE 1/2 TABLET BY MOUTH ONCE DAILY. cetirizine 10 mg tablet 10 mg PO DAILY Qty: 30 5RF Auvelity 45-105 mg tablet, IR and ER, biphasic 0RF tizanidine 4 mg tablet PO Patient Comments: TAKE 1 TABLET BY MOUTH DAILY. diltiazem HCl [Cartia XT] 120 mg capsule,extended release 24hr 120 mg PO DAILY Qty: 30 2RF fluticasone propionate 50 mcg/actuation spray,suspension 1 spray intranasal DAILY Qty: 16 2RF Rx Instructions: administer into each nostril colchicine 0.6 mg tablet 0.6 mg PO BID Qty: 60 2RF ciprofloxacin HCl 500 mg tablet 500 mg PO BID 7 Days Qty: 14 0RF aspirin 81 mg tablet,chewable 1 tab PO DAILY Patient Comments: CHEW AND SWALLOW 1 TABLET BY MOUTH ONCE DAILY. atorvastatin [Lipitor] 40 mg tablet 40 mg PO DAILY Qty: 30 2RF terazosin 1 mg capsule 1 mg PO DAILY Qty: 60 4RF omeprazole 40 mg capsule,delayed release(DR/EC) 40 mg PO DAILY Qty: 30 3RF Patient Comments: TAKE 1 CAPSULE BY MOUTH DAILY. hydrochlorothiazide 25 mg tablet 25 mg PO DAILY Qty: 30 2RF benazepril 40 mg tablet 40 mg PO DAILY Qty: 30 2RF metoprolol succinate 50 mg tablet extended release 24 hr 50 mg PO DAILY Qty: 30 2RF zolpidem 12.5 mg tablet,ext release multiphase 12.5 mg PO HS Qty: 30 0RF trazodone 50 mg tablet 50 mg PO HS PRN (Reason: insomnia) Qty: 30 0RF lorazepam 0.5 mg tablet 0.5 mg PO DAILY Patient Comments: TAKE 1 TABLET BY MOUTH DAILY NEEDED FOR ANXIETY. Referrals Follow up/Referrals: Jelly Oliver APRN [Primary Care Provider, Family Practice] - See instructions Ryan Bull II, MD [Staff Physician, Gastroenterology] - See instructions Activity Restrictions/Add. Instructions Additional Instructions/Restrictions: Please return to the emergency department with any worsening signs or symptoms. Please follow-up with your PCP and GI physician in the upcoming days/weeks. Please take all your medication as prescribed. Clinical Impressions Clinical Impression: Abdominal pain Instructions Patient Instructions: DI for Acute Abdominal Pain Print Language Print Language: Citizen Of [place] Discharge ED Provider: Julienne Baldwin General Adult HPI General Chief complaint: Abdominal Pain Stated complaint: abdominal pain , swollen Time Seen by Provider: 08/06/25 19:33 Mode of Arrival: Ambulatory Source of Information: Patient Description of Symptoms (Recalled from ER Triage Doc. by RN): Pt presents with c/o generalized abdominal pain x 2 weeks. Pt states she has been seen by PCP and [facility]. Pt has a hx of splenic aneurysm. Pt states she has been on antibiotics for a UTI and a bacterial infection. Pt states she has nausea and constipation. denies diarrhea. Pt states she has not been passing gas in 3-4 days. Pt states she feels like her whole body is sweling. History of Present Illness HPI narrative: 65-year-old female presents the emergency department with a 2-week history of constant abdominal pain that is diffuse, she endorses nausea bloating, as well as chronic constipation, patient states that she has IBS , last bowel movement was yesterday, within her baseline, no fever no chills no chest pain no shortness of breath, no cough or congestion, no recent sick contacts, no vomiting, no hematuria melena hematochezia or hematemesis, no urinary type symptomatology, patient tells me that she has some rectal pain , for the last 2 weeks, it is abdominal pain that shoots down into her rectum. Of note, patient tells me she was treated for a UTI x 2, with 2 rounds of p.o. antibiotics for which she does not know the name for, patient is a non-smoker, denies any alcohol or drug use, other past medical history consistent with dated the patient history of splenic aneurysm that is been stable, MDD/PEDRITO, hypertension, GERD, hemangioma of the liver, insomnia, hyperlipidemia. Initial triage vitals are unremarkable. Please note that above description of symptoms, in this electronic medical record under categorization of recalled from ER triage doctor by RN are reflective of an initial nursing assessment, however, is not reflective of my full history and physical exam that was personally taken and clarified. Consequentially, this preceding description of symptoms, which may include the patient's categorized chief complaint in the EMR, do not reflect my personal clinical impression, and the ultimate description of history of present illness and patient stated complaints should be deferred to this section of the note. Unless stated otherwise or congruent with this section of the note, additional signs, symptoms, or incongruence should be interpreted as inaccurate with my clinical impression. Onset (ago): week(s) Related Data Home Medications ?Medication ?Instructions ?Recorded ?Confirmed lorazepam 0.5 mg tablet 0.5 mg PO DAILY 11/01/24 allopurinol 100 mg tablet 50 mg PO DAILY 01/06/2507/14 aspirin 81 mg chewable tablet 1 tab PO DAILY 02/25/25 07/29/25 tizanidine 4 mg tablet mg PO 06/19/25 07/29/25 Previous Rx's ?Medication ?Instructions ?Recorded hydroxyzine HCl 50 mg tablet 50 mg PO DAILY #90 tabs 0 01/01/25 valacyclovir 500 mg tablet 500 mg PO DAILY #90 tabs omeprazole 40 mg capsule,delayed 40 mg PO DAILY #30 ca ps 01/28/25 release cetirizine 10 mg tablet 10 mg PO DAILY #30 tabs 03/13 03/07 hydrochlorothiazide 25 mg tablet 25 mg PO DAILY #30 ta bs 04/04/25 benazepril 40 mg tablet 40 mg PO DAILY #30 tabs 05/13 05/07 diltiazem HCl 120 mg 120 mg PO DAILY #30 caps 06/06 capsule,extended release 24 hr (Cartia XT) metoprolol succinate 50 mg 50 mg PO DAILY #30 tabs 07/07 tablet,extended release 24 hr colchicine 0.6 mg tablet 0.6 mg PO BID #60 tabs 06/23 fluticasone propionate 50 1 spray intranasal DAILY #16 grams 06/23/25 mcg/actuation nasal spray,suspension atorvastatin 40 mg tablet (Lipitor) 40 mg PO DAILY #30 tabs 06/25/25 terazosin 1 mg capsule 1 mg PO DAILY #60 caps 06/25 zolpidem 12.5 mg tablet,extended 12.5 mg PO HS #30 tab s 07/08/25 release,multiphase trazodone 50 mg tablet 50 mg PO HS PRN insomnia #30 tabs 07/24/25 ciprofloxacin HCl 500 mg tablet 500 mg PO BID 7 days # 14 tabs 07/29/25 Allergies Allergy/AdvReac Type Severity Reaction Status Date / Time promethazine (From PHENERGAN) Allergy Intermediate Nausea Verified 07/29/25 14:26 amitriptyline AdvReac Other Verified 07/29/25 14:26 PFSH PFS Disclaimer: The information contained in this section may have been updated after the patient was seen, as this information can be updated by other users. Medical History UTI (urinary tract infection) Hyperuricemia Polyarthralgia Splenic artery aneurysm Hemangioma of liver Neoplasm of uncertain behavior of liver IFG (impaired fasting glucose) History of gastroesophageal reflux (GERD) Depression Anxiety Hyperlipidemia Hypertension Surgical History History of hysterectomy Social History Smoking Status: Never smoker alcohol intake: never counseling provided: none substance use type: denies use current occupational status: retired Travel in the last 8 weeks?: None household members: children housing: house caffeine: No Have you lived/traveled outside US in past 30 days?: No Contact w/someone who lives/traveled outside US past 30 days?: No Exposure to someone with infectious disease in past 14 days?: No Do you have a fever (greater than 100.4 F or 38 C)?: No Have you tested positive for COVID-19?: No Exposed to someone with COVID-19 in past 14 days?: No Do you have a sore throat?: No Do you have a cough?: No Do you have any weakness?: No Do you have any diarrhea?: No Are you experiencing any unusual bleeding?: No Do you have any muscle aches/pain?: No Do you have any abdominal pain?: No Are you experiencing loss of taste or smell?: No Other Medical History Have you received the Flu Vaccine for this season: No Have you received the Pneumonia Vaccine: Yes ROS Obtained: Yes All systems reviewed & no additional complaints except as documented Physical Exam General General appearance: alert and in no apparent distress Head Head exam: atraumatic and normocephalic Eye Eye exam: Present PERRL and EOMI ENT ENT exam: Present mucous membranes moist Neck Neck exam: Present normal inspection Chest Chest inspection: Present normal inspection and symmetric chest wall rise Respiratory Respiratory exam: Present normal lung sounds bilaterally; Absent respiratory distress Cardiovascular Cardiovascular exam: Present regular rate and normal rhythm Abdominal Exam Abdominal exam: Present soft and tenderness; Absent guarding, rebound or rigidity Abdominal tenderness: Present diffuse and mild Extremities Exam Extremities exam: Present normal inspection Neurological Exam Neurological exam: Present alert and oriented X3 Psychiatric Psychiatric exam: Present normal affect Skin Skin exam: Present warm and dry Medical Decision Making Medical Records Medical records reviewed: Yes I reviewed the patient's medical records. Screening: Per USPSTF and CDC recommendations, given the prevalence of disease in our region, it is our hospital?s policy to screen for HIV and viral Hepatitis for all patients aged 18 and over and those with ongoing risk factors. Wai Inquiry Pt receiving controlled substance: Yes Wai was queried for this patient: No Reason not queried -: Emergent pt cond-no time Risks and benefits of using a controlled substance: were discussed with pt by me Vital Signs: 08/06/25 18:29 Temperature 98.3 F Temperature Source Temporal Artery Scan Pulse Rate [Right] 89 Respiratory Rate 18 Blood Pressure [Right Arm] 169/77 H Blood Pressure Mean [Right Arm] 107 Blood Pressure Source [Right Arm] Automatic Cuff Blood Pressure Position [Right Arm] Sitting 02 Sat by Pulse Oximetry 98 Oxygen Delivery Method Room Air Lab Data Lab results reviewed: Yes I reviewed the patient's lab results. Lab Results 08/06/25 18:34: WBC 9.4, RBC 4.11 L, Hgb 12.0 L, Hct 36.9 L, MCV 89.8, MCH 29.2, MCHC 32.5, RDW 13.9, Plt Count 286, MPV 9.5, Neut % (Auto) 48.3, Lymph % (Auto) 37.5, Mineral % (Auto) 8.4, Eos % (Auto) 4.7, Baso % (Auto) 0.7, Neut # (Auto) 4.6, Lymph # (Auto) 3.5, Mineral # (Auto) 0.8, Eos # (Auto) 0.4, Baso # (Auto) 0.1, Sodium 139, Potassium 3.5, Chloride 105, Carbon Dioxide 24, Anion Gap 13.5, BUN 7, Creatinine 0.70, Estimated Creat Clear 78, Estimated GFR 85, Est GFR ( Amer) 102, Glucose 95, Calcium 9.7, Total Bilirubin 0.6, AST 60 H, ALT 91 H, Alkaline Phosphatase 91, Troponin I < 0.01, Total Protein 7.4, Albumin 4.6, Globulin 2.8, Albumin/Globulin Ratio 1.6, Lipase 153 08/06/25 18:40: Urine Color Yellow, Urine Appearance Clear, Urine pH 6.0, Ur Specific [place] <= 1.005, Urine Protein Negative, Urine Glucose (UA) Negative, Urine Ketones Negative, Urine Blood Trace-l, Urine Nitrate Negative, Urine Bilirubin Negative, Urine Urobilinogen 0.2, Ur Leukocyte Esterase 1+ A, Urine RBC None, Urine WBC 3-5, Ur Squamous Epith Cells Occasional, Urine Bacteria Trace 08/06/25 20:04: Lactate 2.0 08/06/25 18:34 08/06/25 18:34 Orders (Tests/Meds): ED MEDICATIONS Generic Name Dose Route Start Last Admin Trade Name Freleni PRN Reason Stop Dose Admin Sodium Chloride 10 ml 08/06/25 20:46 08/06/25 20:48 Sodium Chloride 0.9% 10ml Syr (Rad Only) IV 09/05/25 20:45 10 ml NEEDED PRN Administration Maintain IV Site Discontinued Medications Generic Name Dose Route Start Last Admin Trade Name Freleni PRN Reason Stop Dose Admin Iopamidol 75 ml 08/06/25 20:46 08/06/25 20:48 Iopamidol-370 (76%);100ml Bottle IV 08/06/25 20:47 75 ml ONCE ONE Administration Morphine Sulfate 4 mg 08/06/25 19:51 08/06/25 20:12 Morphine 4mg/Ml Syringe IV 08/06/25 19:52 4 mg ONCE ONE Administration Ondansetron HCl 4 mg 08/06/25 19:51 08/06/25 20:12 Ondansetron 4mg/2ml Vial IV 08/06/25 19:52 4 mg ONCE ONE Administration ORDERS Category Date Time Status CT abdomen pelvis w con Stat Cat Scan 08/06/25 19:44 Completed Complete Blood Count Auto Diff Stat Lab 08/06/25 18:34 Completed Comprehensive Metabolic Panel Stat Lab 08/06/25 18:34 Completed Lactic Acid Stat Lab 08/06/25 20:04 Completed Lipase Stat Lab 08/06/25 18:34 Completed Troponin I Q3H Lab 08/06/25 21:45 Ordered Troponin I Q3H Lab 08/07/25 00:45 Ordered Troponin I Stat Lab 08/06/25 18:34 Completed Urinalysis and Microscopic Stat Lab 08/06/25 18:40 Completed Urine Culture Stat Micro 08/06/25 18:40 Received Medical Decision Narrative: 65-year-old female presents the emergency department with abdominal pain constipation nausea no vomiting for the last 2 weeks, differential diagnose include but not limited to, small bowel obstruction, colitis, ileitis, gastritis, diverticulitis, ileus, constipation, acute UTI, acute pyelonephritis, nephrolithiasis, ureterolithiasis among others. I discussed this patient's case with the attending physician Dr. Baldwin Will obtain basic laboratory studies, troponin, UA, lipase, lactic acid level, will give 4 mg IV morphine for pain and 4 mg of Zofran for nausea, will obtain CT ab pelvis with contrast for further evaluation/characterization. CBC unremarkable CMP is notable for normal lipase initial troponin was within normal limits at less than 0.01, transaminitis noted with an AST of 60 and ALT of 91 UA is notable for 1+ leukocyte esterase, no RBCs, trace hematuria, 3-5 WBCs occasional squames, trace bacteria. There is no lactic acidosis Reviewed the patient's CT abdomen pelvis with contrast along the corresponding radiologic report, splenic artery aneurysm measures 2.[address] features to suggest impending rupture, no acute abnormalities identified, hemangioma in the right hepatic lobe measuring 2.8 cm, diverticulosis without CT evidence to suggest diverticulitis. Still complaining of some pain, will give 5 mg p.o. [place] for pain. I discussed the results with the patient at the bedside patient is in agreement with current treatment plan/discharge plan, symptomatology has improved, patient need to follow-up with GI physician for her IBS and chronic abdominal pain. Patient voiced understanding and agreement with current treatment plan/discharge plan. Strict ED return precautions were given. I did offer antiemetic medication for nausea patient [place] at this time. Critical Care Critical Care Time Critical Care Time: No
[2025-08-06 19:41] LABS: Bacteria,Urine Trace /lpf; Squamous Epithelial Cell,Urine Occasional #/hpf (0-5)
--- NOTE | 2025-08-06 19:44 | CT_ITS ---
PROCEDURE INFORMATION: Exam: CT Abdomen And Pelvis With Contrast Exam date and time: 08/06/2025 8:50 PM Age: 65 years old Clinical indication: Constipation and nausea; Additional info: Abd pain, constipation, nausea TECHNIQUE: Imaging protocol: Computed tomography of the abdomen and pelvis with contrast. Radiation optimization: All CT scans at this facility use at least one of these dose optimization techniques: automated exposure control; mA and/or kV adjustment per patient size (includes targeted exams where dose is matched to clinical indication); or iterative reconstruction. Contrast material: ISOVUE; Contrast volume: 80 ml; Contrast route: IV; COMPARISON: CT ABDOMEN WO/W CON 02/27/2025 9:46 AM FINDINGS: Lungs: The visualized lung bases demonstrate no focal infiltrates or pleural effusions. Liver: Moderate diffuse hepatic steatosis is identified. Hemangioma right hepatic lobe measures 2.8 cm. Gallbladder and biliary ducts: There has been a cholecystectomy. Pancreas: The pancreas is normal. Spleen: The spleen is normal. Adrenal glands: The adrenal glands appear within normal limits. Kidneys and ureters: The kidneys are normal. Stomach and bowel: The stomach appears within normal limits. No wall thickening or inflammatory change. There are changes of diverticulosis without evidence for diverticulitis noted within the sigmoid colon.. Appendix: No evidence of appendicitis. Intraperitoneal space: No free air. No evidence for focal fluid collection or ascites. No evidence for omental thickening. Vasculature: Splenic artery aneurysm measures 2.3 cm. Lymph nodes: Unremarkable. No pathologically enlarged lymph nodes are identified. Urinary bladder: The bladder appears within normal limits. No wall thickening. Reproductive: There has been a hysterectomy. Bones/joints: Unremarkable. No acute fracture. Soft tissues: Unremarkable. IMPRESSION: 1. Splenic artery aneurysm measures 2.[address] features to suggest impending rupture. 2. No acute abnormalities are identified. 3. Hemangioma right hepatic lobe measures 2.8 cm. 4. Diverticulosis without CT evidence to suggest diverticulitis.
[2025-08-06] MEDS: ONDANSETRON 4MG/2ML VIAL 4 MG IV (20:12)
[2025-08-06] MEDS: MORPHINE 4MG/ML SYRINGE 4 MG IV (20:12)
--- NOTE | 2025-08-06 20:12 | PC.NURSE ---
rounded on pt, pt does not need anything at this time. call light within reach.
[2025-08-06] MEDS: IOPAMIDOL-370 (76%);100ML BOTTLE 75 ML IV (20:48)
[2025-08-06] MEDS: SODIUM CHLORIDE 0.9% 10ML SYR (RAD ONLY) 10 ML IV (20:48)
--- NOTE | 2025-08-06 21:51 | PC.NURSE ---
provider updating patient on results
[2025-08-06] MEDS: HYDROCODONE/APAP 5/325 MG TABLET 1 TAB PO (22:15)
[2025-08-06 22:19] VITALS: BP 150/85; PULSE 70; RESP 18; TEMP 36.8; O2SAT 95
== END 2025-08-06 22:17 | disposition home or self-care (01) ==
PROVIDERS: Physician Assistant; Emergency Provider Student in an Organized Health Care Education/Training Program; PCP Nurse Practitioner
DX: R10.84 Generalized abdominal pain (principal); R74.01 Elevation of levels of liver transaminase levels; R11.0 Nausea; I72.8 Aneurysm of other specified arteries; I10 Essential (primary) hypertension; E78.5 Hyperlipidemia, unspecified
CPT/HCPCS: 74177; 80053; 81001; 83605; 83690; 84484; 85025; 87086; 96374; 96375; 99284; J2270; J2405; Q9967

== ENCOUNTER → 2025-08-13 06:37 | Outpatient (CLI) | payer OTHER, SELFPAY ==
--- OUTSIDE RECORDS SUMMARY | 2025-08-13 06:39 | XMS_ITS | Clinical Summary ---
Author Organization [facility] Address [address] [place] [address] Care Team Providers Care Finish Specialist Name Role Phone Melissa Hays MD Primary [...] 04/06/2023 Active ergocalciferol (Vitamin D-2) 1.25 MG (49999 UT) capsule Take 50,000 Units by mouth [...] C Screening 1962 [facility]-/Child/Adol SDOH Screenings 1962 [id number] Vaccine (#1) 1967 [facility]- SDOH Screenings 1980 [...] complete this topic Insurance AMBETTER Care Teams Finish Specialist Relationship Specialty Start Date End Date Melissa Hays MD PCP - General 02/20/23
--- OUTSIDE RECORDS SUMMARY | 2025-08-13 06:39 | XMS_ITS | Clinical Summary ---
Author Organization [facility] Address [facility] [place] [address] Care Team Providers Care Insurance Underwriter Name Role Phone Red Wilder MD Primary Care Provider + [phone] Source Comments This information has been disclosed [...] therelease of HIV test results or diagnoses. [id number] Health Active Problems Problem Noted [...] of Treatment Not on file Care Teams Insurance Underwriter Relationship Specialty Start Date End Date Red Wilder MD [address] [place] [id number] PCP - General 05/23/08
== END ==
LOC: SL 06:38
PROVIDERS: PCP Nurse Practitioner Acute Care; Visit Provider Nurse Practitioner Acute Care
DX: F51.04 Psychophysiologic insomnia (principal)
CPT/HCPCS: G0399

== ENCOUNTER 2025-11-11 16:49 | Emergency (ER) | payer OTHER, SELFPAY ==
[2025-11-11] VITALS (10 sets, daily range): BP systolic 164–216; BP diastolic 78–156; PULSE 58–75; RESP 12–21; TEMP 36.6; O2SAT 96–100; BMI 34.7
--- NOTE | 2025-11-11 17:16 | ECG_ITS ---
APPROVED REPORT Exam: Resting ECG HR:68 bpm ECG Measurements Heart Rate 68 AXES KS 130 P 26 QRSd 88 QRS 20 QT 402 T 0 QTc 419 Conclusion SINUS RHYTHM NONSPECIFIC ST & T-WAVE ABNORMALITY BORDERLINE ECG UNCONFIRMED REPORT Electronically signed by : Pedro Rust, 11/11/2025 23:25:58
--- OUTSIDE RECORDS SUMMARY | 2025-11-11 17:21 | XMS_ITS | Clinical Summary ---
Author Organization [facility] Address [address] [place] [id number] Care Team Providers Care Alcohol Law Enforcement Agent Name Role Phone Melissa Moya Primary Care [...] Depression Screening 11/13/2024 COVID-19 Vaccine ( - 2024-26 season) 2025 Influenza Vaccination (#1) 2025 RSV Vaccines (1 - 1-dose 75+ series) 2037 Insurance ANTHEM ANTHEM Care Teams Alcohol Law Enforcement Agent Relationship Specialty Start Date End Date Melissa [place] [address] [place] [address] PCP - General Family Medicine 10/20/20
--- OUTSIDE RECORDS SUMMARY | 2025-11-11 17:21 | XMS_ITS | Clinical Summary ---
Author Organization [facility] Address [facility] [place] [address] Care Team Providers Care Patient Safety Attendant Name Role Phone Red Wilder MD Primary Care Provider + [phone] Source Comments This information has been disclosed [...] therelease of HIV test results or diagnoses. [id number] Health Active Problems Problem Noted Date Diagnosed [...] of Treatment Not on file Care Teams Patient Safety Attendant Relationship Specialty Start Date End Date Red Wilder MD [address] [place] [id number] PCP - General 05/23/08
--- OUTSIDE RECORDS SUMMARY | 2025-11-11 17:21 | XMS_ITS | Clinical Summary ---
Author Organization [facility] Address [address] [place] [address] Care Team Providers Care Pl Sql Developer Name Role Phone Melissa Hays MD Primary [...] 04/06/2023 Active ergocalciferol (Vitamin D-2) 1.25 MG (30244 UT) capsule Take 50,000 Units by mouth [...] [facility]-HIV Screening 1962 [facility]-Hepatitis C Screening 1962 [facility]-Infant/Child/Adol SDOH Screenings 1962 [id number] Vaccine (#1) 01/25/1963 [facility]- SDOH Screenings 1980 [facility]-Adult SDOH Screenings 1980 [facility]-Pap Smear 1983 [facility]-Cervical Cancer Screening 1992 [facility]-HPV/Cotest 1992 CT Colonography 2007 Colonoscopy 2007 FIT-DNA 2007 FIT 2007 FOBT 2007 Sigmoidoscopy 2007 [facility]-Colorectal Cancer Screening 2007 [facility]-RSV Vaccine: 60+ Years or (1 - Risk 50-74 years 1-dose series) 2012 [facility]-Zoster Vaccines (1 of 2) 2012 [facility]-Pneumococcal Vaccine: 50+ Years (2 of 2 - PCV20 or PCV21) 07/20/2018 07/20/2017 [facility]-Breast Cancer Screening 04/11/202503/15, 04/11/2023, 09/24/2020, Additional history exists [facility]-Influenza Vaccine (#1) 2025 12/04/2018, [facility]-DTaP,Tdap,and Td Vaccines (4 - Td or Tdap) 08/01/2031 08/01/2021, 01/26/2011, 10/13/2009 [facility]-Obesity Intervention Completed 04/25/2023 HPV Vaccines (No Doses Required) Completed [facility]-HIB Vaccines Aged Out No longer e [...] patient's age to complete this topic Insurance [facility] Care Teams Pl Sql Developer Relationship Specialty Start Date End Date Melissa Hays MD PCP - General 02/20/23
--- NOTE | 2025-11-11 17:22 | XR_ITS ---
PROCEDURE INFORMATION: Exam: XR Chest Exam date and time: 11/11/2025 5:36 PM Age: 65 years old Clinical indication: Pain; Other: Chest heaviness; Additional info: Short of breath TECHNIQUE: Imaging protocol: Radiologic exam of the chest. Views: 1 view. COMPARISON: CR XR CHEST 2V 01/30/2020 12:41 PM FINDINGS: Lungs: No consolidation. Pleural spaces: No pleural effusion. No pneumothorax. Heart/Mediastinum: No cardiomegaly. Bones/joints: Unremarkable. IMPRESSION: No acute findings.
--- NOTE | 2025-11-11 17:51 | HMH.EDGENADL ---
Discharge Plan Disposition Patient Disposition: Home, Self-Care Prescriptions Prescriptions: No Action hydroxyzine HCl 50 mg tablet 50 mg PO DAILY Qty: 90 1RF allopurinol 100 mg tablet 50 mg PO DAILY Patient Comments: TAKE 1/2 TABLET BY MOUTH ONCE DAILY. cetirizine 10 mg tablet 10 mg PO DAILY Qty: 30 5RF tizanidine 4 mg tablet PO Patient Comments: TAKE 1 TABLET BY MOUTH DAILY. colchicine 0.6 mg tablet 0.6 mg PO BID Qty: 60 2RF Citrucel (sucrose) Powder 1 tbsp PO DAILY polyethylene glycol 3350 17 gram/dose powder 17 g PO DAILY Qty: 850 2RF Daily Probiotic (10 Strains) 4 billion cell capsule 1 cap PO DAILY Qty: 90 3RF Auvelity 45-105 mg tablet, IR and ER, biphasic 1 tab PO BID Qty: 60 2RF Rx Instructions: administer at least 8 hours apart aspirin 81 mg tablet,chewable 1 tab PO DAILY Patient Comments: CHEW AND SWALLOW 1 TABLET BY MOUTH ONCE DAILY. omeprazole 40 mg capsule,delayed release(DR/EC) 40 mg PO DAILY Qty: 30 3RF Patient Comments: TAKE 1 CAPSULE BY MOUTH DAILY. hydrochlorothiazide 25 mg tablet 25 mg PO DAILY Qty: 30 2RF Auvelity 45-105 mg tablet, IR and ER, biphasic 0RF zolpidem 12.5 mg tablet,ext release multiphase 12.5 mg PO HS Qty: 30 0RF Ibsrela 50 mg tablet 50 mg PO BID Qty: 60 2RF Rx Instructions: must administer immediately before first meal of day/breakfast and dinner azithromycin 250 mg tablet See Rx Instructions PO .COMPLEX Qty: 6 0RF Rx Instructions: For 250 mg dose pack: take 500 mg today (day 1), then 250 mg for 4 days (days 2-5) PO valacyclovir 500 mg tablet 500 mg PO DAILY Qty: 90 1RF valacyclovir 500 mg tablet 500 mg PO DAILY Qty: 90 1RF trazodone 50 mg tablet 50 - 100 mg PO HS PRN (Reason: insomnia) Qty: 60 2RF metoprolol succinate 50 mg tablet extended release 24 hr 50 mg PO DAILY Qty: 90 1RF diltiazem HCl [Cartia XT] 120 mg capsule,extended release 24hr 120 mg PO DAILY Qty: 90 1RF benazepril 40 mg tablet 40 mg PO DAILY Qty: 90 1RF sodium,potassium,mag sulfates [Suprep Bowel Prep Kit] 17.5-3.13-1.6 gram recon soln See Rx Instructions PO .COMPLEX Qty: 354 0RF Rx Instructions: DILUTE; drink full amount early evening before AND next morning at least 4-5 hr before procedure; follow w 960 mL water PO lorazepam 0.5 mg tablet 0.5 mg PO DAILY Patient Comments: TAKE 1 TABLET BY MOUTH DAILY NEEDED FOR ANXIETY. Referrals Follow up/Referrals: Jelly Oliver APRN [Primary Care Provider, Family Practice] - See instructions Activity Restrictions/Add. Instructions Additional Instructions/Restrictions: Your symptoms are consistent with a viral syndrome with regards to your chest pain there is no evidence of an acute cardiopulmonary emergency or any evidence of endorgan damage associated with your high blood pressure. Please keep a blood pressure log as discussed and follow-up closely with your cat sitter to discuss further titration of your oral blood pressure medications at home. Return with any significant worsening of your chest pain shortness of breath changes in mental status focal neurologic deficits or concerns for a stroke or any other concerns. Clinical Impressions Clinical Impression: Acute viral syndrome, Chest pain, Nausea, Hypertension Print Language Print Language: Telugu Discharge ED Provider: Rita Rust General Adult HPI <Tahmina Garcia (ED), COLE - Last Filed: 11/11/25 18:52> General Chief complaint: Upper Respiratory Infection Stated complaint: High BP 185/91, back pain Time Seen by Provider: 11/11/25 17:22 Mode of Arrival: Ambulatory Source of Information: Patient Description of Symptoms (Recalled from ER Triage Doc. by RN): Patient [facility], sore throat and rash that started on her chest that moved to her face 2 days ago. Was told to come to the ER because her blood pressure was elevated. Patient states she has a history of hypertension and takes medication for it. History of Present Illness HPI narrative: This is a 65-year-old female who presents to the ED today [facility] pain, sore throat, flu viral symptoms. She says she felt like she has been hit in the back and had tingling in her left arm over the last 2 days. She says she has had a headache. Patient takes her blood pressure medication twice a day she has already taken it today. She says she just feels terrible. [facility] center here because she was having the left arm pain and tingling. Patient arrived with elevated blood pressure 213/87. Her repeat blood pressure now is 209/99. Patient was unaware that her blood pressure was elevated. She denies any abdominal pain or vomiting. Related Data Home Medications ?Medication ?Instructions ?Recorded ?Confirmed lorazepam 0.5 mg tablet 0.5 mg PO DAILY 11/01/24 11/11/25 allopurinol 100 mg tablet 50 mg PO DAILY 01/06/25 11/11/25 aspirin 81 mg chewable tablet 1 tab PO DAILY 02/25/25 11/11/25 tizanidine 4 mg tablet mg PO 06/19/25 11/11/25 methylcellulose (with sugar) oral 1 tbsp PO DAILY 09/22/25 11/11/25 powder (Citrucel (sucrose) oral powder) Previous Rx's ?Medication ?Instructions ?Recorded hydroxyzine HCl 50 mg tablet 50 mg PO DAILY #90 tabs 01/01/25 omeprazole 40 mg capsule,delayed 40 mg PO DAILY #30 caps 01/28/25 release cetirizine 10 mg tablet 10 mg PO DAILY #30 tabs 03/26/25 colchicine 0.6 mg tablet 0.6 mg PO BID #60 tabs 06/23/25 hydrochlorothiazide 25 mg tablet 25 mg PO DAILY #30 tabs 08/11/25 Lactobac 51-Bifidobac 1 cap PO DAILY #90 caps 08/21/25 3-L.lactis-S.thermophilus 4 billion cell capsule (Daily Probiotic (10 Strains)) polyethylene glycol 3350 17 17 g PO DAILY #850 grams 08/21/25 gram/dose oral powder dextromethorphan IR 45 1 tab PO BID #60 ea 08/27/25 mg-bupropion ER 105 mg biphasic tablet (Auvelity) zolpidem 12.5 mg tablet,extended 12.5 mg PO HS #30 tabs 10/12/25 release,multiphase tenapanor 50 mg tablet (Ibsrela) 50 mg PO BID #60 tabs 10/13/25 azithromycin 250 mg tablet See Rx Instructions PO .COMPLEX #6 10/15/25 tabs trazodone 50 mg tablet 50 - 100 mg (1 - 2 x 50 mg) PO HS 10/28/25 PRN insomnia #60 tabs valacyclovir 500 mg tablet 500 mg PO DAILY #90 tabs 10/28/25 valacyclovir 500 mg tablet 500 mg PO DAILY #90 tabs 10/28/25 benazepril 40 mg tablet 40 mg PO DAILY #90 tabs 10/29/25 diltiazem HCl 120 mg 120 mg PO DAILY #90 caps 10/29/25 capsule,extended release 24 hr (Cartia XT) metoprolol succinate 50 mg 50 mg PO DAILY #90 tabs 10/29/25 tablet,extended release 24 hr sodium,potassium,mag sulfates 17.5 See Rx Instructions PO .COMPLEX 11/03/25 gram-3.13 gram-1.6 gram oral soln #354 mL (Suprep Bowel Prep Kit) Allergies Allergy/AdvReac Type Severity Reaction Status Date / Time promethazine (From PHENERGAN) Allergy Intermediate Nausea Verified 11/11/25 16:38 amitriptyline AdvReac Other Verified 11/11/25 16:38 PFS <Tahmina Garcia (ED), [employer]INE [employer]ADER - Last Filed: 11/11/25 18:52> [facility] Disclaimer: The information contained in this section may have been updated after the patient was seen, as this information can be updated by other users. Medical History UTI (urinary tract infection) Hyperuricemia Polyarthralgia Splenic artery aneurysm Hemangioma of liver Neoplasm of uncertain behavior of liver IFG (impaired fasting glucose) History of gastroesophageal reflux (GERD) Depression Anxiety Hyperlipidemia Hypertension Surgical History Hx of shoulder surgery Hx of cholecystectomy History of hysterectomy Social History Smoking Status: Never smoker alcohol intake: never counseling provided: none substance use type: denies use current occupational status: retired Travel in the last 8 weeks?: None household members: children housing: house caffeine: No Have you lived/traveled outside [place] in past 30 days?: No Contact w/someone who lives/traveled outside US past 30 days?: No Exposure to someone with infectious disease in past 14 days?: No Do you have a fever (greater than 100.4 F or 38 C)?: No Have you tested positive for COVID-19?: No Exposed to someone with COVID-19 in past 14 days?: No Do you have a sore throat?: No Do you have a cough?: No Do you have any weakness?: No Do you have any diarrhea?: No Are you experiencing any unusual bleeding?: No Do you have any muscle aches/pain?: No Do you have any abdominal pain?: No Are you experiencing loss of taste or smell?: No Other Medical History Have you received the Flu Vaccine for this season: No Have you received the Pneumonia Vaccine: Yes <Tahmina Garcia (ED), [employer]ER - Last Filed: 11/11/25 18:52> ROS Obtained: Yes Systems reviewed as appropriate & no additional complaints except as documented Constitutional Constitutional: Reports as per HPI Physical Exam <Tahminamaddison Garcia (ED), [employer]INE [employer]ER - Last Filed: 11/11/25 18:52> General General appearance: alert Head Head exam: normocephalic Eye Eye exam: Present PERRL ENT ENT exam: Present mucous membranes moist Neck Neck exam: Present full ROM and trachea midline Respiratory Respiratory exam: Present normal lung sounds bilaterally Cardiovascular Cardiovascular exam: Present regular rate, normal rhythm, +S1 and +S2 Abdominal Exam Abdominal exam: Present soft and normal bowel sounds Extremities Exam Extremities exam: Present full ROM and normal capillary refill Neurological Exam Neurological exam: Present alert and oriented X3 Psychiatric Psychiatric exam: Present normal mood Skin Skin exam: Present warm and dry Medical Decision Making <Tahmina [facility] (ED), [employer] LO[employer]ER - Last Filed: 11/11/25 18:52> Medical Records Screening: Per USPSTF and CDC recommendations, given the prevalence of disease in our region, it is our hospital?s policy to screen for HIV and viral Hepatitis for all patients aged 18 and over and those with ongoing risk factors. Wai Inquiry Pt receiving controlled substance: No Wai was queried for this patient: No Vital Signs: 11/11/25 17:05 11/11/25 17:17 11/11/25 17:31 Temperature 98 F Temperature Source Oral Pulse Rate 75 65 Pulse Rate [Right Brachial] 71 Respiratory Rate 16 15 Blood Pressure 202/156 H Blood Pressure [Right Arm] 213/87 H Blood Pressure Mean [Right Arm] 129 Blood Pressure Source [Right Arm] Automatic Cuff Blood Pressure Position [Right Arm] Sitting 02 Sat by Pulse Oximetry 99 100 99 Oxygen Delivery Method Room Air 11/11/25 18:01 11/11/25 19:00 11/11/25 19:17 Temperature Temperature Source Pulse Rate 64 63 65 Pulse Rate [Right Brachial] Respiratory Rate 21 18 Blood Pressure 216/87 H 164/78 H 164/78 H Blood Pressure [Right Arm] Blood Pressure Mean [Right Arm] Blood Pressure Source [Right Arm] Blood Pressure Position [Right Arm] 02 Sat by Pulse Oximetry 98 96 Oxygen Delivery Method 11/11/25 19:19 11/11/25 20:01 Temperature Temperature Source Pulse Rate 66 58 L Pulse Rate [Right Brachial] Respiratory Rate 13 12 Blood Pressure 197/97 H 210/97 H Blood Pressure [Right Arm] Blood Pressure Mean [Right Arm] Blood Pressure Source [Right Arm] Blood Pressure Position [Right Arm] 02 Sat by Pulse Oximetry 100 99 Oxygen Delivery Method Lab Data Lab Results 11/11/25 18:03: SARS-CoV-2 (PCR) Not detected, Influenza A Untype (PCR) Not detected, Influenza Type B (PCR) Not detected 11/11/25 18:20: WBC 9.5, RBC 4.39, Hgb 12.2, Hct 38.7, MCV 88.2, MCH 27.8, MCHC 31.5 L, RDW 13.5, Plt Count 261, MPV 9.9, Neut % (Auto) 50.6, Lymph % (Auto) 38.8, [place] % (Auto) 6.3, Eos % (Auto) 3.3, Baso % (Auto) 0.5, Neut # (Auto) 4.8, Lymph # (Auto) 3.7, [place] # (Auto) 0.6, Eos # (Auto) 0.3, Baso # (Auto) 0.1, Sodium 139, Potassium 3.9, Chloride 103, Carbon Dioxide 32 H, Anion Gap 7.9, BUN 13, Creatinine 0.60, Estimated Creat Clear 78, Estimated GFR 101, Est GFR ( Amer) 122, Glucose 104 H, Calcium 9.5, Magnesium 1.3 L, Total Bilirubin 0.4, AST 45 H, ALT 57, Alkaline Phosphatase 99, Troponin I < 0.01, Total Protein 6.9, Albumin 4.4, Globulin 2.5, Albumin/Globulin Ratio 1.8, Lipase 180 11/11/25 18:20 11/11/25 18:20 Orders (Tests/Meds): ED MEDICATIONS Generic Name Dose Route Start Last Admin Trade Name Freq PRN Reason Stop Dose Admin Sodium Chloride 8 ml 11/11/25 17:22 11/11/25 18:35 Sodium Chloride 0.9% 10ml Vial IV 12/11/25 17:21 8 ml NEEDED PRN Administration dilute pepcid Sodium Chloride 10 ml 11/11/25 19:32 11/11/25 19:33 Sodium Chloride 0.9% 10ml Syr (Rad Only) IV 12/11/25 19:31 10 ml NEEDED PRN Administration Maintain IV Site Discontinued Medications Generic Name Dose Route Start Last Admin Trade Name Freq PRN Reason Stop Dose Admin Acetaminophen 1,000 mg 11/11/25 17:22 11/11/25 18:35 Acetaminophen 1,000mg/100ml Vial IV 11/11/25 17:23 1,000 mg ONCE ONE Administration Aspirin 325 mg 11/11/25 17:22 11/11/25 18:36 Aspirin 325mg Tablet PO 11/11/25 17:23 325 mg ONCE ONE Administration Diphenhydramine HCl 25 mg 11/11/25 17:26 11/11/25 18:35 Diphenhydramine 50mg/Ml Vial IV 11/11/25 17:27 25 mg ONCE ONE Administration Famotidine 20 mg 11/11/25 17:22 11/11/25 18:35 Famotidine 20mg/2ml Vial IV 11/11/25 17:23 20 mg ONCE ONE Administration Iopamidol 80 ml 11/11/25 19:32 11/11/25 19:33 Iopamidol-370 (76%);100ml Bottle IV 11/11/25 19:33 80 ml ONCE ONE Administration Ondansetron HCl 4 mg 11/11/25 17:22 11/11/25 18:36 Ondansetron 4mg/2ml Vial IV 11/11/25 17:23 4 mg ONCE ONE Administration Sodium Chloride 50 ml 11/11/25 19:32 11/11/25 19:33 0.9 % Sodium Chloride 50 Ml Vial IV 11/11/25 19:33 50 ml ONCE ONE Administration ORDERS Category Date Time Status CT angio chest - dissection Stat Cat Scan 11/11/25 18:45 Completed Chest XR -- portable [XR chest portable] Stat Exams 11/11/25 17:22 Completed CBC [Complete Blood Count Auto Diff] Stat Lab 11/11/25 18:20 Completed Comprehensive Metabolic Panel Stat Lab 11/11/25 18:20 Completed Lipase Stat Lab 11/11/25 18:20 Completed Magnesium Stat Lab 11/11/25 18:20 Completed Rapid PCR Covid and Flu A/B Stat Lab 11/11/25 18:03 Completed Trop I [Troponin I] Stat Lab 11/11/25 18:20 Completed Troponin I Q3H Lab 11/11/25 20:30 Ordered Troponin I Q3H Lab 11/11/25 23:30 Ordered Medical Decision Narrative: patient is a 65-year-old female presenting to the emergency department for evaluation of flu viral symptoms, tingling in her left arm and hand for the past couple days. Sore throat left ear pain headache and now elevated blood pressure. Patient is hemodynamically stable and nontoxic-appearing upon arrival, afebrile. Differential diagnosis includes hypertension, flu COVID other viral illness, anxiety, among others. Workup will be conducted with hematologic labs, specific imaging, provocative tests. Initial inventions include crystalloid bolus, analgesics. I did discuss with patient that I would try to treat her headache in hopes of bringing her blood pressure down. That would be the first intervention. Patient's blood pressure has come down to 186/150. Still waiting on the rest of workup. Talk to patient and she is having pain going through her chest to her back I ordered a CT dissection. Will give report to Dr. Rust. <Rita Rust MD - Last Filed: 11/11/25 20:20> Vital Signs: 11/11/25 17:05 11/11/25 17:17 11/11/25 17:31 Temperature 98 F Temperature Source Oral Pulse Rate 75 65 Pulse Rate [Right Brachial] 71 Respiratory Rate 16 15 Blood Pressure 202/156 H Blood Pressure [Right Arm] 213/87 H Blood Pressure Mean [Right Arm] 129 Blood Pressure Source [Right Arm] Automatic Cuff Blood Pressure Position [Right Arm] Sitting 02 Sat by Pulse Oximetry 99 100 99 Oxygen Delivery Method Room Air 11/11/25 18:01 11/11/25 19:00 11/11/25 19:17 Temperature Temperature Source Pulse Rate 64 63 65 Pulse Rate [Right Brachial] Respiratory Rate 21 18 Blood Pressure 216/87 H 164/78 H 164/78 H Blood Pressure [Right Arm] Blood Pressure Mean [Right Arm] Blood Pressure Source [Right Arm] Blood Pressure Position [Right Arm] 02 Sat by Pulse Oximetry 98 96 Oxygen Delivery Method 11/11/25 19:19 11/11/25 20:01 Temperature Temperature Source Pulse Rate 66 58 L Pulse Rate [Right Brachial] Respiratory Rate 13 12 Blood Pressure 197/97 H 210/97 H Blood Pressure [Right Arm] Blood Pressure Mean [Right Arm] Blood Pressure Source [Right Arm] Blood Pressure Position [Right Arm] 02 Sat by Pulse Oximetry 100 99 Oxygen Delivery Method Lab Data Lab results reviewed: Yes I reviewed the patient's lab results. Lab Results 11/11/25 18:03: SARS-CoV-2 (PCR) Not detected, Influenza A Untype (PCR) Not detected, Influenza Type B (PCR) Not detected 11/11/25 18:20: WBC 9.5, RBC 4.39, Hgb 12.2, Hct 38.7, MCV 88.2, MCH 27.8, MCHC 31.5 L, RDW 13.5, Plt Count 261, MPV 9.9, Neut % (Auto) 50.6, Lymph % (Auto) 38.8, [place] % (Auto) 6.3, Eos % (Auto) 3.3, Baso % (Auto) 0.5, Neut # (Auto) 4.8, Lymph # (Auto) 3.7, [place] # (Auto) 0.6, Eos # (Auto) 0.3, Baso # (Auto) 0.1, Sodium 139, Potassium 3.9, Chloride 103, Carbon Dioxide 32 H, Anion Gap 7.9, BUN 13, Creatinine 0.60, Estimated Creat Clear 78, Estimated GFR 101, Est GFR ( Amer) 122, Glucose 104 H, Calcium 9.5, Magnesium 1.3 L, Total Bilirubin 0.4, AST 45 H, ALT 57, Alkaline Phosphatase 99, Troponin I < 0.01, Total Protein 6.9, Albumin 4.4, Globulin 2.5, Albumin/Globulin Ratio 1.8, Lipase 180 Orders (Tests/Meds): ED MEDICATIONS Generic Name Dose Route Start Last Admin Trade Name Freq PRN Reason Stop Dose Admin Sodium Chloride 8 ml 11/11/25 17:22 11/11/25 18:35 Sodium Chloride 0.9% 10ml Vial IV 12/11/25 17:21 8 ml NEEDED PRN Administration dilute pepcid Sodium Chloride 10 ml 11/11/25 19:32 11/11/25 19:33 Sodium Chloride 0.9% 10ml Syr (Rad Only) IV 12/11/25 19:31 10 ml NEEDED PRN Administration Maintain IV Site Discontinued Medications Generic Name Dose Route Start Last Admin Trade Name Freq PRN Reason Stop Dose Admin Acetaminophen 1,000 mg 11/11/25 17:22 11/11/25 18:35 Acetaminophen 1,000mg/100ml Vial IV 11/11/25 17:23 1,000 mg ONCE ONE Administration Aspirin 325 mg 11/11/25 17:22 11/11/25 18:36 Aspirin 325mg Tablet PO 11/11/25 17:23 325 mg ONCE ONE Administration Diphenhydramine HCl 25 mg 11/11/25 17:26 11/11/25 18:35 Diphenhydramine 50mg/Ml Vial IV 11/11/25 17:27 25 mg ONCE ONE Administration Famotidine 20 mg 11/11/25 17:22 11/11/25 18:35 Famotidine 20mg/2ml Vial IV 11/11/25 17:23 20 mg ONCE ONE Administration Iopamidol 80 ml 11/11/25 19:32 11/11/25 19:33 Iopamidol-370 (76%);100ml Bottle IV 11/11/25 19:33 80 ml ONCE ONE Administration Ondansetron HCl 4 mg 11/11/25 17:22 11/11/25 18:36 Ondansetron 4mg/2ml Vial IV 11/11/25 17:23 4 mg ONCE ONE Administration Sodium Chloride 50 ml 11/11/25 19:32 11/11/25 19:33 0.9 % Sodium Chloride 50 Ml Vial IV 11/11/25 19:33 50 ml ONCE ONE Administration ORDERS Category Date Time Status CT angio chest - dissection Stat Cat Scan 11/11/25 18:45 Completed Chest XR -- portable [XR chest portable] Stat Exams 11/11/25 17:22 Completed CBC [Complete Blood Count Auto Diff] Stat Lab 11/11/25 18:20 Completed Comprehensive Metabolic Panel Stat Lab 11/11/25 18:20 Completed Lipase Stat Lab 11/11/25 18:20 Completed Magnesium Stat Lab 11/11/25 18:20 Completed Rapid PCR Covid and Flu A/B Stat Lab 11/11/25 18:03 Completed Trop I [Troponin I] Stat Lab 11/11/25 18:20 Completed Troponin I Q3H Lab 11/11/25 20:30 Ordered Troponin I Q3H Lab 11/11/25 23:30 Ordered Medical Decision Narrative: patient is a 65-year-old female presenting to the emergency department for evaluation of flu viral symptoms, tingling in her left arm and hand for the past couple days. Sore throat left ear pain headache and now elevated blood pressure. Patient is hemodynamically stable and nontoxic-appearing upon arrival, afebrile. Differential diagnosis includes hypertension, flu COVID other viral illness, anxiety, among others. Workup will be conducted with hematologic labs, specific imaging, provocative tests. Initial inventions include crystalloid bolus, analgesics. I did discuss with patient that I would try to treat her headache in hopes of bringing her blood pressure down. That would be the first intervention. Patient's blood pressure has come down to 186/150. Still waiting on the rest of workup. Talk to patient and she is having pain going through her chest to her back I ordered a CT dissection. Will give report to Dr. Rust. This is Dr. Rust at 8:[address] scan performed which I personally interpreted which shows no evidence of any acute cardiopulmonary emergency namely no evidence of any aortic dissection or pulmonary embolism. Patient's had symptoms for 2 days troponin is undetectably low this is not consistent with myocardial injury or acute coronary syndrome. Patient has symptoms of a viral syndrome with her body aches and chills ear discomfort nausea etc. COVID and flu are negative. Symptoms are most likely consistent with a viral syndrome. Supportive care discussed. No evidence of acute otitis media pneumonia or serious bacterial infection that would require antibiotics. Patient is concerned about her blood pressure patient has no evidence clinically of any endorgan damage at the moment after workup as well as radiographic imaging. No indication at the moment for admitting her in the hospital for IV antihypertensive medication without evidence of endorgan damage. She will follow-up closely with cardiology and keep a blood pressure log for titration of her blood pressure medications. She was understanding of this and discharged in improved and stable condition. Critical Care <Tahmina Garcia (ED), [employer] MACHINE LOADER - Last Filed: 11/11/25 18:52> Critical Care Time Critical Care Time: No
[2025-11-11 18:12] LABS: Coronavirus 19, PCR Not Detected (NotDetected); Influenza A, PCR Not Detected (NotDetected); Influenza B, PCR Not Detected (NotDetected)
[2025-11-11] MEDS: FAMOTIDINE 20MG/2ML VIAL 20 MG IV (18:35)
[2025-11-11] MEDS: SODIUM CHLORIDE 0.9% 10ML VIAL 8 ML IV (18:35)
[2025-11-11] MEDS: ACETAMINOPHEN 1,000MG/100ML VIAL 1000 MG IV (18:35)
[2025-11-11] MEDS: ASPIRIN 325MG TABLET 325 MG PO (18:36)
[2025-11-11] MEDS: ONDANSETRON 4MG/2ML VIAL 4 MG IV (18:36)
[2025-11-11 18:39] LABS: Hematocrit 38.7 % (37.0-47.0); Hemoglobin 12.2 g/dL (12.2-16.2); Immature Granulocytes % 0.5 %; Mean Corpuscular HGB Conc 31.5 g/dL (31.8-35.4); Mean Corpuscular Hemoglobin 27.8 pg (27.0-31.2); Mean Corpuscular Volume 88.2 fl (81-99); Nucleated Red Blood Cells % 0 %; Platelet Count 261 K/mm3 (142-424); Red Blood Count 4.39 M/mm3 (4.20-5.40); Red Cell Distribution Width-SD 43.6 fL; White Blood Count 9.5 K/mm3 (4.8-10.8)
--- NOTE | 2025-11-11 18:45 | CT_ITS ---
PROCEDURE INFORMATION: Exam: CTA Chest With Contrast Exam date and time: 11/11/2025 7:32 PM Age: 65 years old Clinical indication: Other: Back pain; Additional info: Pain to her back TECHNIQUE: Imaging protocol: Computed tomographic angiography of the chest with contrast. Exam focused on the arteries. 3D rendering (Not supervised by radiologist): MIP and/or 3D reconstructed images were created by the technologist. Radiation optimization: All CT scans at this facility use at least one of these dose optimization techniques: automated exposure control; mA and/or kV adjustment per patient size (includes targeted exams where dose is matched to clinical indication); or iterative reconstruction. Contrast material: ISOUVE 37; Contrast volume: 80 ml; Contrast route: INTRAVENOUS (IV); COMPARISON: CR XR CHEST PORTABLE 11/11/2025 5:36 PM FINDINGS: Pulmonary arteries: Normal. No pulmonary emboli. Aorta: Unremarkable. No aortic aneurysm. No aortic dissection. Celiac and mesenteric arteries: Stable peripherally calcified splenic artery aneurysm. Lungs: Right lower lobe calcified granulomas. No consolidation. No masses. Pleural spaces: Unremarkable. No pneumothorax. No pleural effusion. Heart: Minimal aortic valvular calcifications. Left cardiac enlargement. No pericardial effusion. Lymph nodes: Calcified mediastinal and right hilar lymph nodes. Diaphragm: Small hiatal hernia. Liver: Hepatic steatosis. Hepatomegaly. Gallbladder and biliary ducts: Cholecystectomy. Spleen: Few calcified granulomas. Bones/joints: Degenerative changes. No acute fracture. Soft tissues: Unremarkable. IMPRESSION: No acute findings. No pulmonary artery embolism.
[2025-11-11 18:53] LABS: Alanine Aminotransferase 57 U/L (12-78); Albumin Level 4.4 g/dl (3.5-5.0); Albumin/Globulin Ratio 1.8 (1.1-1.8); Alkaline Phosphatase 99 U/L (38-126); Anion Gap 7.9 mEq/L (5-15); Aspartate Amino Transferase 45 U/L (14-36); Bilirubin,Total 0.4 mg/dl (0.2-1.3); Blood Urea Nitrogen 13 mg/dl (7-17); Calcium 9.5 mg/dl (8.4-10.2); Carbon Dioxide 32 mmol/L (22.0-30.0); Chloride 103 mmol/L (98-107); Creatinine Clearance Estimated 78 mL/min (50-200); Creatinine,Serum 0.60 mg/dl (0.52-1.04); Estimated Glomerular Filt Rate 101 ml/min (>60); GFR (African American) 122 ML/MIN (>60); Globulin 2.5 g/dL (1.3-3.2); Glucose 104 mg/dl (74-100); Lipase 180 U/L (23-300); Magnesium 1.3 mg/dl (1.6-2.3); Potassium 3.9 mmoL/L (3.5-5.1); Sodium 139 mmol/L (136-145); Total Protein,Serum 6.9 g/dl (6.3-8.2)
[2025-11-11 19:05] LABS: Troponin I < 0.01 ng/ml (0.00-0.034)
[2025-11-11] MEDS: SODIUM CHLORIDE 0.9% 10ML SYR (RAD ONLY) 10 ML IV (19:33)
[2025-11-11] MEDS: IOPAMIDOL-370 (76%);100ML BOTTLE 80 ML IV (19:33)
[2025-11-11] MEDS: 0.9 % SODIUM CHLORIDE 50 ML VIAL IV (19:33)
== END 2025-11-11 20:26 | disposition home or self-care (01) ==
PROVIDERS: Nurse Practitioner; Emergency Provider Student in an Organized Health Care Education/Training Program; PCP Nurse Practitioner
DX: R07.9 Chest pain, unspecified (principal); I10 Essential (primary) hypertension; R11.0 Nausea; R51.9 Headache, unspecified; B34.9 Viral infection, unspecified
CPT/HCPCS: 71045; 71275; 80053; 83690; 83735; 84484; 85025; 87636; 93005; 96374; 96375; 99285; J0131; J1200; J1308; J2405; Q9967